=== PATIENT | female | born 1945 | race Caucasian/White ===

== ENCOUNTER → 2017-12-18 14:50 | Outpatient (CLI) | payer MEDICARE, SELFPAY | PROVIDERS: Family Provider Family Medicine Geriatric Medicine; PCP Family Medicine Geriatric Medicine; Visit Provider Family Medicine Geriatric Medicine | DX: E83.52 Hypercalcemia (principal) | CPT/HCPCS: 36415; 82330 ==

== ENCOUNTER → 2018-01-22 08:44 | Outpatient (CLI) | payer MEDICARE, SELFPAY ==
[2018-01-22 10:16] LABS: AST(SGOT) 16 U/L (15-37); Alanine Aminotransfer ALT/SGPT 28 U/L (13-56); Albumin, Serum 3.7 g/dL (3.2-5.0); Alkaline Phosphatase 75 U/L (45-117); Bilirubin, Direct 0.07 mg/dL (0.00-0.30); CPK Total, Creatine Kinase 83 U/L (26-192); Cholesterol 183 mg/dL (200); Globulin 3.4 g/dL (2.2-4.2); High Density Lipoprotein 54 mg/dL; Protein, Total 7.1 g/dL (6.4-8.2); Triglycerides 136 mg/dL; Very Low Density Lipoprotein 27 mg/dL (5-40)
== END ==
PROVIDERS: Family Provider Family Medicine Geriatric Medicine; PCP Family Medicine Geriatric Medicine
DX: E78.5 Hyperlipidemia, unspecified (principal)
CPT/HCPCS: 36415; 80061; 80076; 82550

== ENCOUNTER → 2019-04-24 08:56 | Outpatient (CLI) | payer MEDICARE, SELFPAY ==
--- NOTE | 2019-04-24 09:58 | CR.HP_ITS ---
CR - History & Physical - General Arrival date:: 04/24/19 Arrival time:: 09:00 Date of Referral:: 03/24/19 Date of CR Evaluation:: 04/24/19 Referring Physician: DR. MARYLOU SHARMA - [facility] Primary Diagnosis: PCI W/STENT - History of Present Cardiac Event Onset Date: Enter Onset Date of cardiac illnesses in Comment field below Acute Myocardial Infarction within 12 months:: Yes - Mar PTCA or coronary stenting:: Yes - 02/26/2019, PREVIOUS STENT IN 2011, 1995, 1996 ANGIOPLASTY IN 1993 Type of Symptoms:: MEMORY LOSS, [place] [employer] NIGHT BEFORE, HAD A FULL NEUROLOGY WORK UP, FOLLOWING WEEK HAD STRESS TEST AND ECHOCARDIOGRAM. ABOUT 2 WEEKS LATER STARTED HAVING CHEST PAINS. Interventions with present event:: STRESS TEST, ECHOCARDIOGRAM, BASIC WORK UP. Were there any complications?: NONE - Medications Home Medications: Ambulatory Orders Medication Instructions Recorded ALPRAZolam [Xanax] 1 mg PO QHS 04/02/16 Losartan Potassium 100 mg PO QHS 04/02/16 Apixaban [Eliquis] 5 mg PO BID 04/24/19 Cholecalciferol (Vitamin D3) 1,000 04/24/19 [Vitamin D3] Clopidogrel Bisulfate [Plavix] 75 mg PO DAILY 04/24/19 Dofetilide [Tikosyn] 500 mcg PO BID 04/24/19 Ezetimibe [Zetia] 10 mg PO DAILY 04/24/19 Isosorbide Mononitrate [Imdur] 30 mg PO DAILY 04/24/19 Nitroglycerin [Nitrostat] 0.4 mg SL Q5M 04/24/19 Pantoprazole Sodium [Protonix] 40 mg PO DAILY 04/24/19 Polyethylene Glycol 3350 [Miralax] 17 gm PO DAILY 04/24/19 Rosuvastatin Calcium [Crestor] 40 mg PO DAILY 04/24/19 Trazodone HCl 50 mg PO 04/24/19 - Allergies Allergies/Adverse Reactions: Allergies metoprolol Allergy (Verified 02/25/17 22:38) Other TAPE Adverse Reaction (Uncoded 02/25/17 22:38) Hives - Sleep Disorder Evaluation Hx of Sleep Apnea: No Do you snore loudly (louder than talking or can be heard through closed doors)?: Yes Do you often feel tired/ fatigued/ sleepy during daytime?: No Has anyone observed you stop breathing during sleep?: No History of Hypertension (for STOP score): Yes - dont sleep well, had a sleep test and was negative for sleep disorder STOP Results: Positive Advanced Directives - Advanced Directives Power of Database Operator: Yes Living Will: Yes Advance Directives Information Provided: No Advance Directives on File: No - patient will bring copies DNR Order?:: No - MOLST See MOLST form: No Past Medical History - Past Medical Illness Medical History: Past Medical History (Last Updated 04/24/19 @ 10:20 by Inocente Moore, HARPER, PROJECT GEOLOGIST, BS) Anxiety F41.9 Atrial fibrillation I48.91 Bradycardia R00.1 CAD (coronary artery disease) I25.10 Depression F32.9 Hyperlipidemia E78.5 Myocardial infarction I21.9 Palpitations R00.2 Typical atrial flutter I48.3 colonoscopy mandible fracture surgery Hypertension I10 - Past Surgical History Surgical History: Past Surgical History (Last Updated 04/24/19 @ 10:20 by Inocente Moore, HARPER, PROJECT GEOLOGIST, BS) H/O adenoidectomy Z90.89 H/O hernia repair Z98.890, Z87.19 History of PTCA Z98.61 History of ankle surgery Z98.890 Hx of tonsillectomy Z90.89 S/P PTCA (percutaneous transluminal coronary angioplasty) Z98.61 S/P ablation of atrial fibrillation Z98.890, Z86.79 Social History - Smoking History Smoking Status: Former smoker Years Smokin Packs Smoked per Day: 1 Hx Smoking Cessation Date: 1968 Hx Tobacco Use: No Hx Smoking Exposure: No - Alcohol Use Alcohol Usage: Yes - occasionally; once month if that. 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 - Hobbies, Recreation, Social Activities Hobbies: Reading, Other - art, gardening Recreational Activities: I am able to engage in most, but not all activities - has really slowed down; desire, ability to perform and stamina have all contributed. Social Environment - Status Marital Status: - Current Living Arrangements Living Environment:: Spouse - Children How many children do you have?: 1 - 1 Do any of your children live nearby?: Yes - Just recently moved to [place] - Safety Do you feel safe in your surroundings?: Yes - Assistance Do you need any assistance at home?: none Review of Systems - Review of Systems Hints: Right click = Denies ([place]). Left click = Reports ([place]) Review of Present Symptoms: Reports: Shortness of Breath with Exertion - feels s ometimes can't get quite enough air., Angina - has had to use nitroglycerine only one time since recent stent. Feels it more int he evening seems after the Imdur has started to wear off a bit., Fatigue, Heart Arrhythmia/Irregularities - atrial fibrillation/flutter had atrial ablation procedures., Appetite - Normal, Sleep - Normal. Denies: Shortness of Breath at Rest, Dizziness/Lightheadedness, Appetite - Special Diet, Sexual Changes - Pain Is Patient Pain Free?: Yes Pain Location: none Pain Level: 0/10 Risk Factor Assessment - Chief Complaint Chief Complaint: Patient is a very pleasent female of [place] who was referred to [facility] for her CR due to location. SHe has previously had prior cardica procedures adn has participated in our CR program in the past. - Vital Signs Temperature: 98.7 F Respiratory Rate: 12 Pulse Ox: 96 Blood Pressure: 120/74 Nailbeds:: pink - Pulse Pulse Rate: 56 Pulse Rhythm: Regular - Hypertension How long have you been treated?: since Blood Pressure Sitting - Left Arm: 120/74 - Stress Stress: Recent, Home/Family - Blood Cholesterol/Lipids Total Cholesterol (mg/dL) Goal = less than 200 mg/dL: 184 - 02/17/2019 HDL Cholesterol (mg/dL) Goal = less than 40 mg/dL: 49 LDL Cholesterol (mg/dL) Goal = less than 70 mg/dL: 102 Triglycerides (mg/dL) Goal = less than 150 mg/dL: 142 - Diabetes Nutrition Referral for Diabetes: No - Obesity Height: 5 ft 6 in Weight:: 153 lb Weight in Pounds: 153.0 lbs Weight Source: Standing Scale Body Mass Index (BMI): 24.7 Nutritional Referral for Obesity: No - Physical Inactivity Physical Inactivity: Recreational activity - set daily goal of 5000 steps per day; spend alot of time working outside. - Risk Stratification Risk Guidelines: Lowest Risk: Risk Factor for Smoking, Risk Factor for Diabetes, Risk Factor for Obesity, Risk Factor for Hypertension, Risk Factor for Sedentary Lifestyle, Risk Factor for Depression, Moderate Risk: Risk Factor for Dyslipidemia - For Smoking Smoking Risk Guidelines: Smoking Low Risk: None or quit greater than 6 months ago. Smoking Moderate Risk: Smoker or quit 6 months or less ago. Smoking High Risk: Smoker - For Dyslipidemia Dyslipidemia Risk Guidelines: Low Risk: Moderate Risk: High Risk: 15-25% fat 25.1-29% fat >/= 30% fat. <7% sat fat 7-9% sat fat >9% sat fat. <150 mg chol 150-299 mg chol >/= 300 mg chol. LDL <100 LDL 100-129 LDL >/= 130. Chol/HDL ratio <5.0 Chol/HDL ratio 5.0-6.0 Chol/HDL ratio >6.0. Triglycerides <100 Triglycerides 100- 149 Triglycerides >/= 150 - For Diabetes Mellitus Diabetes Risk Guidelines: Diabetes Low Risk: HgA1c <6.5% and/or FBG <120. Diabetes Moderate Risk: HgA1c 6.6-7.9% and/or FBG 120-180. Diabetes High Risk: HgA1c >/= 8% and/or FBG >180 - For Obesity/Overweight Obesity/Overweight Risk Guidelines: Obesity Low Risk: BMI <25.0. Obesity Moderate Risk: BMI 25-29.9. Obesity High Risk: BMI >/= 30.0 - For Hypertension Hypertension Risk Guidelines: Hypertension Low Risk: Systolic <120 and Diastolic <80. Hypertension Moderate Risk: Systolic 120-139 and Diastolic 80-89. Hypertension High Risk: Systolic >/= 140 and Diastolic >/= 90 - For Sedentary Lifestyle Sedentary Lifestyle Risk Guidelines: Sedentary Lifestyle Low Risk: >/= 1,500 kcal/week. Sedentary Lifestyle Moderate Risk: 700-1,499 kcal/week. Sedentary Lifestyle High Risk: < 700 kcal/week - For Depression Depression Risk Guidelines: Depression Low Risk: Not clinically depressed. Depression Moderate Risk: Mildly depressed. Depression High Risk: Clinically depressed Motivation - Motivation to Participate On a scale of 1 to 10, how prepared are you to commit to attending program?: 10 What do you see as barriers to successfully being able to complete the program?: none; maybe Sunday schedule with art class and our CR schedule What do you see as the benefits of succesfully completing the program? In other words, what do you hope to get out of participating in the program?: more energy increased stamina Are there issues you are dealing with that will interfere with completing the program?: none Do you have a spouse or signficant other, family or friends who will help support you to complete the program?: yes.
[2019-04-24 10:32] VITALS: BP 120/74; PULSE 56; RESP 12; TEMP 37.1; O2SAT 96; BMI 24.7
--- NOTE | 2019-04-24 10:56 | PCM.CR.ITP ---
General Information - General Information Admitting Diagnosis: PCI W/CORONARY STENT - Education/Goals Barriers to Learning: Vision Impairment Individual Counseling: Initial Assessment: Abnormal Cholesterol Levels, High Blood Pressure Cardiac Rehabilitation Goals: 1. Maintain the individual as the primary focus of care. 2. To improve the patient's quality of life. 3. Identification of cardiac risk factors and provide cardiac risk factor management. 4. Enhance the psychosocial status of the patient. 5. Reconditioning enough to allow the patient to resume customary activities. 6. Control symptoms of cardiac disease Scale for measuring improvement of personal goals: Enter appropriate number in Comments. 2 = Unchanged. 3 = Slightly Better. 4 = Moderate Improvement. 5 = Met my Goal Personal Goals: Initial Assessment: Improve management of stress and emotions, Improve energy level, Participate in home exercise program, Get back to work, or to resume activities faster, Improve muscle strength and endurance, Control risk factors (learn risk factor modification) Exercise - Initial Assessment - Visit Date of Eval: 04/24/19 - START 04/28/2019 - Stages of Change Stages of Change:: Action - Physician Prescribed Exercise Modalities: Treadmill, Airdyne, NuStep Frequency (days/week): 3x/week for 12 weeks [36 sessions] Duration (Minutes):: 30-45 Intensity: 60-80% age predicted maximum heart rate reserve METs - Progression: 0.5-1.0 MET, RPE 11-14 WEEK: 2.5 Target Heart Rate:: 96-124 - Hypertension Do any of the following apply?: Yes, Medication Resting Blood Pressure:: 120/74 - Intervention Home Exercise/Activity Goal:: Moderate Exercise 30 min/day x 5 days/wk - Education Goals:: Warm-up, RPE TITUS Scale, S/S, Safe Exercise, Self-Monitoring - Exercise Program Goals Exercise Program Goals: Aerobic Activity >30 min Nutrition - Initial Assessment - Program Goals Nutrition Program Goals: LDL <70. Total Cholesterol <200. HDL >45. Triglycerides <150. HgbA1C <7%. BMI <25 - Visit Date of Assessment:: 04/24/19 - Stages of Change Stages of Change:: Action - Lipids Total Cholesterol (mg/dL) Goal = less than 200 mg/dL: 184 - 02/17/2019 HDL Cholesterol (mg/dL) Goal = less than 45 mg/dL: 49 LDL Cholesterol (mg/dL) Goal = less than 70 mg/dL: 102 Triglycerides (mg/dL) Goal = less than 150 mg/dL: 142 - Diabetes Diabetes:: No - Weight Management Height: 5 ft 3 in Weight:: 153 lb Body Fat %:: 24.69 - Intervention Referral to dietitian:: No Referral to Diabetic Clinic:: No Will attend diet classes:: No - Education Gave educational materials for:: Healthy eating Tobacco - Initial Assessment - Program Goals Tobacco Program Goals: Complete smoking cessation. Attend education classes. Improve Knowledge Test score - Stage of Change Stages of Change:: Action - Learning Barriers Learning Barriers: Vision, Ready to Learn - Family Support Do you have family support?: Yes - Tobacco Use Tobacco Use: Non-smoker - Intervention Smoking Cessation Referral:: No Individual Education/Counseling:: No Education Schedule Given:: Yes - Education Attended class for:: Treating Heart Disease, How The Heart Works, What it means to have Heart Disease, How Coronary Artery Disease is Diagnosed, Heart Procedures, What Heart Medications Do, Risk Factors & Modifications, Living an Active Life, Nutrition, Emotions & Heart Disease, Stress Management & Relaxation, Sleep Disorders & Heart Disease Psychosocial - Initial Assess - Target Goals Target Goals: Assess presence or absence of depression. Using a valid screening tool, maximizes coping skills. Positive support system - Stages of Change Stages of Change:: Action - Psychosocial Test Tool Used:: HANDS Depression Questionnaire Self-reported stress:: This time year anniversary child, and other daughtermoved to [place]. Tests Completed: SF - 36 survey completed, Mood Scale Test - Intervention PS - Interventions: Yes Attend Stress Management Classes, Yes Uses Stress Management Skills, No Referral to Mental Health, No Referral to [facility] Case Management, No Referral to Physician - Treated for depression/anxiety - Education Gave educational materials for:: Coping techniques, Signs & symptoms of depression, Stress management, Relaxation techniques - Patient/Program Goal Preventative Medication(s):: Aspirin, JENNIFER inhibitor, Clopidogrel, Beta rafael, Statin/lipid - Assistive Devices Assistive Devices:: None Fall Risk Assessed:: Yes Patient Health Questionnaire Initial Assessment 1. Little interest or pleasure in doing things: Several days 2. Feeling down, depressed, or hopeless: More than half the days 3. Trouble falling or staying asleep, or sleeping too much: Several days 4. Feeling tired or having little energy: Nearly every day 5. Poor appetite or overeating: Not at all 6. Feeling bad about yourself -- or that you are a failure or have let yourself or your family down: Several days 7. Trouble concentrating on things, such as reading the newspaper or watching television: Not at all 8. Moving or speaking so slowly that other people could have noticed. Or the opposite - being so fidgety or restless that you have been moving around a lot more than usual: Several days 9. Thoughts that you would be better off , or of hurting yourself in some way: Not at all How difficult have these problems made it for you to do your work, take care of things at home, or get along with other people?: Very difficult Total Score: 9 GIOVANNI-Q SV Test - Statements CAD is a disease of the arteries in the heart: False Examples of risk factors for heart disease: True Angina is chest pain or discomfort: True The benefits of resistance training include: True Eating more meat and dairy products: False Anti-platelet medications such as aspirin are important: True The only effective way to manage stress: False An exercise warm-up slowly increases heart rate: True Prepared, processed foods usually have high sodium: True Depression is common after a heart attack: True The statin medications lower cholesterol: True To control blood pressure, lower the amount of sodium: True If someone gets chest discomfort during walking: False Transfats are partially hydrogenated vegetable oils: True Sleep apnea that is not treated increases the risk: False To control cholesterol, one should become a vegetarian: False Someone knows if he/she is exercising at the right level: True Diabetes cannot be prevented with exercise & health eating: False Stress is a large risk for heart attack: True A diet that can help lower blood pressure is rich in: True - Total Score Total Correct Responses: 20 Self-Efficacy Initial Assessment We would like to know how confident you are in doing certain activities. Please select your confidence level for:: Select your confidence level for the following using the scale 1-10 where 1 is not at all confident and 10 is totally confident. Your score is the average of all 6 responses. Fatigue: How confident are you that you can keep the fatigue caused by your disease from interfering with the things you want to do? Select Number: 3 Physical Discomfort or Pain: How confident are you that you can keep the physical discomfort or pain of your disease from interfering with the things you want to do? Select Number: 7 Emotional Distress: How confident are you that you can keep the emotional distress caused by your disease from interfering with the things you want to do? Select Number: 2 Other Symptoms or Health Problems: How confident are you that you can keep other symptoms or health problems from interfering with the things you want to do? Select Number: 9 Different Tasks and Activities: How confident are you that you can do the different tasks and activities needed to manage your health condition so as to reduce your need to see a doctor? Select Number: 9 Medication: How confident are you that you can do things other than just taking medication to reduce how much your illness affects your everyday life? Select Number: 10 Total Score:: 6 Nutrition Survey - Nutrition Survey Instructions Scoring Instructions: Scoring is as follows: Yes = 1 points. No = 0 point. Patient score that is >/=12 is considered to be at potential nutritional risk and could benefit from a referral to a registered dietitian. - Nutrition Survey Initial Have you lost >10 lbs over the past 2 months without trying?: No Are you following a special diet at home for diabetes, low fat, or low salt?: Yes Are you interested in meeting with a dietitian for help understanding your diet?: No Do you eat less than 3 meals a day?: No Do you eat fatty meats (kovacs, sausage, ribs, etc), fried foods, desserts, large amounts of salad dressings, margarine, butter, or cheese most days?: No Do you have food allergies? [Enter types in comment field]: No Do you eat in restaurants more than 3 times a week?: No Do you season food with salt, seasoning salt, or garlic salt?: No
[2019-04-24 11:03] VITALS: BP 120/74
== END ==
PROVIDERS: Family Provider Family Medicine Geriatric Medicine; PCP Family Medicine Geriatric Medicine
DX: Z95.5 Presence of coronary angioplasty implant and graft (principal); I10 Essential (primary) hypertension; I25.10 Atherosclerotic heart disease of native coronary artery without angina pectoris

== ENCOUNTER 2019-05-12 09:15 | Outpatient (RCR) | payer MEDICARE, SELFPAY ==
[2019-04-24 10:32] VITALS: BMI 24.7
== END 2019-05-12 23:59 ==
LOC: CR 09:15
PROVIDERS: Family Provider Family Medicine Geriatric Medicine; PCP Family Medicine Geriatric Medicine
DX: Z95.5 Presence of coronary angioplasty implant and graft (principal)
CPT/HCPCS: 93798

== ENCOUNTER → 2019-05-21 07:59 | Outpatient (CLI) | payer MEDICARE, SELFPAY ==
[2019-04-24 10:32] VITALS: BMI 24.7
[2019-05-21 08:47] LABS: AST(SGOT) 22 U/L (15-37); Alanine Aminotransfer ALT/SGPT 33 U/L (13-56); Albumin, Serum 3.7 g/dL (3.2-5.0); Alkaline Phosphatase 76 U/L (45-117); Bilirubin, Direct 0.11 mg/dL (0.00-0.30); Cholesterol 148 mg/dL (200); Globulin 3.3 g/dL (2.2-4.2); High Density Lipoprotein 59 mg/dL; Triglycerides 116 mg/dL; Very Low Density Lipoprotein 23 mg/dL (5-40)
== END ==
PROVIDERS: Family Provider Family Medicine Geriatric Medicine; PCP Family Medicine Geriatric Medicine
DX: I25.119 Atherosclerotic heart disease of native coronary artery with unspecified angina pectoris (principal)
CPT/HCPCS: 36415; 80061; 80076

== ENCOUNTER 2019-06-11 09:15 | Outpatient (RCR) | payer MEDICARE, SELFPAY ==
[2019-04-24 10:32] VITALS: BMI 24.7
--- NOTE | 2019-05-26 09:11 | PCM.CR.ITP ---
Exercise - 30-day Assessment - Visit Date of Eval: 05/26/19 Session #:: 7 - STARTED HER CR ON 05/09/2019 FOLLOWING AN ADDITIONAL PCI STENT FOLLOWING HER INITIAL EVALUATION. - Stages of Change Stages of Change:: Action - Physician Prescribed Exercise Modalities: Treadmill, Airdyne, NuStep Frequency (days/week): 3 Duration (Minutes):: 30-45 Intensity: 60-80% age predicted maximum heart rate reserve METs - Progression: 0.5-1.0 MET, RPE 11-14 WEEK: 3.0 Target Heart Rate:: 96-124 W MAX HR 90 RPE 12 - Hypertension Resting Blood Pressure:: 108/64 Peak Exercise Blood Pressure:: 142/82 Medication Changes:: Yes - Intervention Home Exercise/Activity Goal:: Moderate Exercise 30 min/day x 5 days/wk - Education Goals:: Warm-up, RPE TITUS Scale, S/S, Safe Exercise, Self-Monitoring - Exercise Program Goals Exercise Program Goals: Aerobic Activity >30 min Nutrition - 30-Day Assessment - Program Goals Nutrition Program Goals: LDL <70. Total Cholesterol <200. HDL >45. Triglycerides <150. HgbA1C <7%. BMI <25 - Visit Date of Eval: 05/26/19 - Stages of Change Stages of Change:: Action - Lipids Has the patient seen the dietitian?: Yes - Diabetes Diabetes:: No Insulin: No Non-Insulin Dependent?: No - Weight Management Weight:: 155 lb - Intervention Referral to dietitian:: No Referral to Diabetic Clinic:: No Will attend diet classes:: Yes - Education Attended class for:: Healthy eating Tobacco - Initial Assessment - Program Goals Tobacco Program Goals: Complete smoking cessation. Attend education classes. Improve Knowledge Test score - Learning Barriers Learning Barriers: Vision, Ready to Learn Tobacco - 30-Day Assessment - Program Goals Tobacco Program Goals: Complete smoking cessation. Attend education classes. Improve Knowledge Test score - Stage of Change Stages of Change:: Action - Learning Barriers Learning Barriers: Participates in education, Change in behavior - Family Support Do you have family support?: Yes - Tobacco Use Tobacco Use: Non-smoker Do you use smokeless tobacco?: No - Intervention Smoking Cessation Referral:: No Individual Education/Counseling:: No Education Schedule Given:: Yes - Education Attended class for:: Living an Active Life, Nutrition Psychosocial - Initial Assess - Target Goals Target Goals: Assess presence or absence of depression. Using a valid screening tool, maximizes coping skills. Positive support system - Psychosocial Test Tool Used:: HANDS Depression Questionnaire - Assistive Devices Fall Risk Assessed:: Yes Psychosocial - 30-Day Assess - Target Goals Target Goals: Assess presence or absence of depression. Using a valid screening tool, maximizes coping skills. Positive support system - Stages of Change Stages of Change:: Action - Psychosocial Test Tool Used:: HANDS Depression Questionnaire - Intervention PS - Interventions: Yes Attend Stress Management Classes, Yes Uses Stress Management Skills - MEDITATION, No Referral to Mental Health, No Referral to [facility] Case Management, No Referral to Physician - Education Attended classes for:: Coping techniques, Signs & symptoms of depression, Stress management, Relaxation techniques - Patient/Program Goal Preventative Medication(s):: Aspirin, JENNIFER inhibitor, Clopidogrel, Beta rafael, Statin/lipid - Assistive Devices Assistive Devices:: None Fall Risk Assessed:: Yes Patient Health Questionnaire 30-Day Re-eval Assessment 1. Little interest or pleasure in doing things: Not at all 2. Feeling down, depressed, or hopeless: Several days 3. Trouble falling or staying asleep, or sleeping too much: Not at all 4. Feeling tired or having little energy: More than half the days 5. Poor appetite or overeating: Not at all 6. Feeling bad about yourself -- or that you are a failure or have let yourself or your family down: Not at all 7. Trouble concentrating on things, such as reading the newspaper or watching television: Not at all 8. Moving or speaking so slowly that other people could have noticed. Or the opposite - being so fidgety or restless that you have been moving around a lot more than usual: Several days 9. Thoughts that you would be better off , or of hurting yourself in some way: Not at all How difficult have these problems made it for you to do your work, take care of things at home, or get along with other people?: Somewhat difficult Total Score: 4 Self-Efficacy 30-Day Re-eval Assessment We would like to know how confident you are in doing certain activities. Please select your confidence level for:: Select your confidence level for the following using the scale 1-10 where 1 is not at all confident and 10 is totally confident. Your score is the average of all 6 responses. Fatigue: How confident are you that you can keep the fatigue caused by your disease from interfering with the things you want to do? Select Number: 5 Physical Discomfort or Pain: How confident are you that you can keep the physical discomfort or pain of your disease from interfering with the things you want to do? Select Number: 8 Emotional Distress: How confident are you that you can keep the emotional distress caused by your disease from interfering with the things you want to do? Select Number: 4 Other Symptoms or Health Problems: How confident are you that you can keep other symptoms or health problems from interfering with the things you want to do? Select Number: 10 Different Tasks and Activities: How confident are you that you can do the different tasks and activities needed to manage your health condition so as to reduce your need to see a doctor? Select Number: 10 Medication: How confident are you that you can do things other than just taking medication to reduce how much your illness affects your everyday life? Select Number: 10 Total Score:: 7
[2019-05-26 09:19] VITALS: BP 108/64; BP 142/82
== END 2019-06-12 23:59 ==
LOC: CR 09:15
PROVIDERS: Family Provider Family Medicine Geriatric Medicine; PCP Family Medicine Geriatric Medicine
DX: Z95.5 Presence of coronary angioplasty implant and graft (principal)
CPT/HCPCS: 93798

== ENCOUNTER 2019-07-09 09:15 | Outpatient (RCR) | payer MEDICARE, SELFPAY ==
[2019-04-24 10:32] VITALS: BMI 24.7
[2019-06-13 01:11] VITALS: BP 108/64; BP 142/82
--- NOTE | 2019-06-23 12:51 | CR.ITP_ITS ---
Exercise - 60-Day Assessment - Visit Date of Eval: 06/23/19 Session #:: 16 - Patient has missed 3 sessions - Stages of Change Stages of Change:: Action - Physician Prescribed Exercise Modalities: Treadmill, Airdyne, NuStep Frequency (days/week): 3 Duration (Minutes):: 30-45 Intensity: 60-80% age predicted maximum heart rate reserve METs - Progression: 0.5-1.0 MET, RPE 11-14 WEEK: 3.0 unable to increase due to hip and lower back pain. Target Heart Rate:: 96-124 w/max HR 109 - Hypertension Resting Blood Pressure:: 118/68 Peak Exercise Blood Pressure:: 160/82 Medication Changes:: No - Intervention Home Exercise/Activity Goal:: Moderate Exercise 30 min/day x 5 days/wk - Education Goals:: Warm-up, RPE TITUS Scale, S/S, Safe Exercise, Self-Monitoring - Exercise Program Goals Exercise Program Goals: Aerobic Activity >30 min Nutrition - 60-Day Assessment - Program Goals Nutrition Program Goals: LDL <70. Total Cholesterol <200. HDL >45. Triglycerides <150. HgbA1C <7%. BMI <25 - Visit Date of Eval: 06/23/19 - Stages of Change Stages of Change:: Action - Lipids Has the patient seen the dietitian?: Yes - Diabetes Diabetes:: No Insulin: No Non-Insulin Dependent?: No - Weight Management Weight:: 155 lb - Intervention Referral to dietitian:: No Referral to Diabetic Clinic:: No Will attend diet classes:: Yes - Education Attended class for:: Healthy eating Tobacco - Initial Assessment - Program Goals Tobacco Program Goals: Complete smoking cessation. Attend education classes. Improve Knowledge Test score - Learning Barriers Learning Barriers: Vision, Ready to Learn Tobacco - 60-Day Assessment - Program Goals Tobacco Program Goals: Complete smoking cessation. Attend education classes. Improve Knowledge Test score - Stage of Change Stages of Change:: Action - Learning Barriers Learning Barriers: Participates in education - Tobacco Use Tobacco Use: Non-smoker Do you use smokeless tobacco?: No - Intervention Smoking Cessation Referral:: No Individual Education/Counseling:: No Education Schedule Given:: Yes - Education Attended class for:: Treating Heart Disease, How The Heart Works, Nutrition, Emotions & Heart Disease, Stress Management & Relaxation, Sleep Disorders & Heart Disease Psychosocial - Initial Assess - Target Goals Target Goals: Assess presence or absence of depression. Using a valid screening tool, maximizes coping skills. Positive support system - Psychosocial Test Tool Used:: HANDS Depression Questionnaire - Assistive Devices Fall Risk Assessed:: Yes Psychosocial - 60-Day Assess - Target Goals Target Goals: Assess presence or absence of depression. Using a valid screening tool, maximizes coping skills. Positive support system - Stages of Change Stages of Change:: Action - Psychosocial Test Tool Used:: HANDS Depression Questionnaire - Intervention PS - Interventions: Yes Attend Stress Management Classes, Yes Uses Stress Gena gement Skills, No Referral to Mental Health, No Referral to [facility] Case Management, No Referral to Physician - Education Attended classes for:: Coping techniques, Signs & symptoms of depression, Stress management, Relaxation techniques - Patient/Program Goal Preventative Medication(s):: Aspirin, JENNIFER inhibitor, Clopidogrel, Beta rafael, Statin/lipid - Patient is compliant with her medications - Assistive Devices Assistive Devices:: None Fall Risk Assessed:: Yes Patient Health Questionnaire 60-Day Re-eval Assessment 1. Little interest or pleasure in doing things: Not at all 2. Feeling down, depressed, or hopeless: Several days 3. Trouble falling or staying asleep, or sleeping too much: Not at all 4. Feeling tired or having little energy: Several days 5. Poor appetite or overeating: Not at all 6. Feeling bad about yourself -- or that you are a failure or have let yourself or your family down: Not at all 7. Trouble concentrating on things, such as reading the newspaper or watching television: Not at all 8. Moving or speaking so slowly that other people could have noticed. Or the opposite - being so fidgety or restless that you have been moving around a lot more than usual: Several days 9. Thoughts that you would be better off , or of hurting yourself in some way: Not at all How difficult have these problems made it for you to do your work, take care of things at home, or get along with other people?: Not difficult at all Total Score: 3 Self-Efficacy 60-Day Re-eval Assessment We would like to know how confident you are in doing certain activities. Please select your confidence level for:: Select your confidence level for the following using the scale 1-10 where 1 is not at all confident and 10 is totally confident. Your score is the average of all 6 responses. Fatigue: How confident are you that you can keep the fatigue caused by your dise ase from interfering with the things you want to do? Select Number: 7 Physical Discomfort or Pain: How confident are you that you can keep the physica l discomfort or pain of your disease from interfering with the things you want to do? Select Number: 8 Emotional Distress: How confident are you that you can keep the emotional distress caused by your disease from interfering with the things you want to do? Select Number: 6 Other Symptoms or Health Problems: How confident are you that you can keep other symptoms or health problems from interfering with the things you want to do? Select Number: 10 Different Tasks and Activities: How confident are you that you can do the different tasks and activities needed to manage your health condition so as to reduce your need to see a doctor? Select Number: 10 Medication: How confident are you that you can do things other than just taking medication to reduce how much your illness affects your everyday life? Select Number: 10 Total Score:: 8
[2019-06-23 13:09] VITALS: BP 118/68; BP 160/82
== END 2019-07-12 23:59 ==
LOC: CR 09:15
PROVIDERS: Family Provider Family Medicine Geriatric Medicine; PCP Family Medicine Geriatric Medicine
DX: Z95.5 Presence of coronary angioplasty implant and graft (principal)
CPT/HCPCS: 93798

== ENCOUNTER 2019-07-21 09:15 | Outpatient (RCR) | payer MEDICARE, SELFPAY ==
[2019-04-24 10:32] VITALS: BMI 24.7
[2019-07-13 00:53] VITALS: BP 118/68; BP 160/82
--- NOTE | 2019-07-23 14:36 | PCM.CR.ITP ---
General Information - General Information Admitting Diagnosis: PCI with Coronary stent - Education/Goals Cardiac Rehabilitation Goals: 1. Maintain the individual as the primary focus of care. 2. To improve the patient's quality of life. 3. Identification of cardiac risk factors and provide cardiac risk factor management. 4. Enhance the psychosocial status of the patient. 5. Reconditioning enough to allow the patient to resume customary activities. 6. Control symptoms of cardiac disease Scale for measuring improvement of personal goals: Enter appropriate number in Comments. 2 = Unchanged. 3 = Slightly Better. 4 = Moderate Improvement. 5 = Met my Goal Exercise - 90-Day Assessment - Visit Date of Eval: 07/23/19 Session #:: 22 - Stages of Change Stages of Change:: Action - Physician Prescribed Exercise Modalities: Treadmill, Airdyne, NuStep Frequency (days/week): 3 Duration (Minutes):: 30-45 Intensity: 60-80% age predicted maximum heart rate reserve METs - Progression: 0.5-1.0 MET, RPE 11-14 WEEK: 3 Target Heart Rate:: 96-124 - Hypertension Resting Blood Pressure:: 124/60 Peak Exercise Blood Pressure:: 148/78 - Intervention Home Exercise/Activity Goal:: Sitting Time <3 hrs/day - Education Goals:: RPE TITUS Scale, S/S, Self-Monitoring - Exercise Program Goals Exercise Program Goals: Aerobic Activity >30 min, B/P <130/80 Nutrition - 90-Day Assessment - Program Goals Nutrition Program Goals: LDL <70. Total Cholesterol <200. HDL >45. Triglycerides <150. HgbA1C <7%. BMI <25 - Visit Date of Eval: 07/23/19 - Stages of Change Stages of Change:: Action - Education Attended class for:: Signs & symptoms of hypoglycemia, Signs & symptoms of hyperglycemia, Relate diabetes to coronary artery disease, Healthy eating Tobacco - Initial Assessment - Program Goals Tobacco Program Goals: Complete smoking cessation. Attend education classes. Improve Knowledge Test score - Learning Barriers Learning Barriers: Vision, Ready to Learn Tobacco - 90-Day Assessment - Program Goals Tobacco Program Goals: Complete smoking cessation. Attend education classes. Improve Knowledge Test score - Stage of Change Stages of Change:: Action - Family Support Do you have family support?: Yes - Tobacco Use Tobacco Use: Non-smoker Do you use smokeless tobacco?: No - Intervention Smoking Cessation Referral:: No Individual Education/Counseling:: No Education Schedule Given:: Yes - Education Attended class for:: Treating Heart Disease, How The Heart Works, What it means to have Heart Disease, How Coronary Artery Disease is Diagnosed, Heart Procedures, What Heart Medications Do, Risk Factors & Modifications, Living an Active Life, Nutrition, Emotions & Heart Disease, Stress Management & Relaxation, Sleep Disorders & Heart Disease Psychosocial - Initial Assess - Target Goals Target Goals: Assess presence or absence of depression. Using a valid screening tool, maximizes coping skills. Positive support system - Psychosocial Test Tool Used:: HANDS Depression Questionnaire - Assistive Devices Fall Risk Assessed:: Yes Psychosocial - 90-Day Assess - Target Goals Target Goals: Assess presence or absence of depression. Using a valid screening tool, maximizes coping skills. Positive support system - Stages of Change Stages of Change:: Action - Psychosocial Test Tool Used:: HANDS Depression Questionnaire - Intervention PS - Interventions: Yes Attend Stress Management Classes, Yes Uses Stress Management Skills, No Referral to Mental Health, No Referral to [facility] Case Management, No Referral to Physician - Education Attended classes for:: Coping techniques, Signs & symptoms of depression, Stress management, Relaxation techniques - Assistive Devices Assistive Devices:: None Fall Risk Assessed:: Yes Patient Health Questionnaire 90-Day Re-eval Assessment 1. Little interest or pleasure in doing things: Not at all 2. Feeling down, depressed, or hopeless: Several days 3. Trouble falling or staying asleep, or sleeping too much: Not at all 4. Feeling tired or having little energy: Several days 5. Poor appetite or overeating: Not at all 6. Feeling bad about yourself -- or that you are a failure or have let yourself or your family down: Not at all 7. Trouble concentrating on things, such as reading the newspaper or watching television: Not at all 8. Moving or speaking so slowly that other people could have noticed. Or the opposite - being so fidgety or restless that you have been moving around a lot more than usual: Several days 9. Thoughts that you would be better off , or of hurting yourself in some way: Not at all How difficult have these problems made it for you to do your work, take care of things at home, or get along with other people?: Not difficult at all Total Score: 3 Self-Efficacy 90-Day Re-eval Assessment We would like to know how confident you are in doing certain activities. Please select your confidence level for:: Select your confidence level for the following using the scale 1-10 where 1 is not at all confident and 10 is totally confident. Your score is the average of all 6 responses. Fatigue: How confident are you that you can keep the fatigue caused by your disease from interfering with the things you want to do? Select Number: 7 Physical Discomfort or Pain: How confident are you that you can keep the physical discomfort or pain of your disease from interfering with the things you want to do? Select Number: 8 Emotional Distress: How confident are you that you can keep the emotional distress caused by your disease from interfering with the things you want to do? Select Number: 6 Other Symptoms or Health Problems: How confident are you that you can keep other symptoms or health problems from interfering with the things you want to do? Select Number: 10 Different Tasks and Activities: How confident are you that you can do the different tasks and activities needed to manage your health condition so as to reduce your need to see a doctor? Select Number: 10 Medication: How confident are you that you can do things other than just taking medication to reduce how much your illness affects your everyday life? Select Number: 10 Total Score:: 8
[2019-07-23 14:43] VITALS: BP 124/60; BP 148/78
== END 2019-07-25 10:00 | disposition home or self-care (01) ==
LOC: CR 09:15
PROVIDERS: Family Provider Family Medicine Geriatric Medicine; PCP Family Medicine Geriatric Medicine
DX: Z95.5 Presence of coronary angioplasty implant and graft (principal)
CPT/HCPCS: 93798

== ENCOUNTER → 2019-09-04 09:20 | Outpatient (CLI) | payer MEDICARE, SELFPAY ==
[2019-04-24 10:32] VITALS: BMI 24.7
--- NOTE | 2019-09-04 09:22 | RAD_ITS ---
STUDY: AIR-CONTRAST UPPER GI SERIES. REASON FOR EXAM: Female, 73 years old. GERD X YEARS, CP, CAD W/ STENTS INSERTION. 25 TOTAL FLUORO IMAGES. FLUOROSCOPY TIME (if supplied): ( 42 seconds ) minutes/seconds TECHNIQUE: The patient ingested barium. Multiple images of the esophagus, stomach and duodenum were obtained. COMPARISON: None. FINDINGS: The esophagus is unremarkable. There is no evidence of obstruction. No evidence of gastroesophageal reflux. The stomach and duodenum are unremarkable as well. No mass lesion is seen. No evidence of ulceration. IMPRESSION: Unremarkable air contrast upper GI series. Electronically Signed: Herbert Bautista, at 15:14 EST , Service support , PROCEDURE: SMALL BOWEL SERIES DATE OF EXAMINATION: September 04, 2019. INDICATION: Female, 73 years old. Abdominal pain. PHYSICIAN: Herbert Bautista M.D. FLUOROSCOPY TIME (if supplied): (0:56) minutes/seconds TECHNIQUE: Radiographic and fluoroscopic images were taken of the small intestine following the ingestion of barium. COMPARISON: None. FINDINGS: A preliminary supine KUB was obtained. There is an unremarkable bowel gas pattern. Fecal material is present throughout the colon. Phleboliths are present within the pelvis. The lung bases are unremarkable. The osseous structures are normal. The patient orally ingested approximately 12 ounces of thin barium Normal visualized fundus, body, and antrum of the stomach. Normal duodenal bulb, C-loop, and proximal jejunum. Normal visualized mucosal folds of the jejunum and ileum. There are no demonstrated dilatations, strictures, or masses of the small intestine. There is no mass displacement of the loops of small intestine. There is a normal motor pattern with barium reaching the colon within approximately 30 minutes. Spot films under fluoroscopic observation demonstrated a normal terminal ileum and ileocecal valve. RAD/Upper GI/w Small Bowel IMPRESSION: Normal small bowel series. Electronically Signed: Herbert Bautista, at 15:16 EST , Service support ,
== END ==
PROVIDERS: PCP Family Medicine Geriatric Medicine
DX: K21.9 Gastro-esophageal reflux disease without esophagitis (principal); K58.2 Mixed irritable bowel syndrome; R10.32 Left lower quadrant pain
CPT/HCPCS: 74246; 74248

== ENCOUNTER → 2019-09-06 10:31 | Outpatient (CLI) | payer MEDICARE, SELFPAY ==
[2019-04-24 10:32] VITALS: BMI 24.7
--- NOTE | 2019-09-06 10:37 | US_ITS ---
STUDY: ABDOMINAL ULTRASOUND REASON FOR EXAM: Female, 73 years old. Abdominal pain, gastroesophageal reflux disease. TECHNIQUE: Transabdominal ultrasound was performed with real-time and static perez scale imaging. TECHNICAL QUALITY: Adequate. COMPARISON: Upper gastrointestinal study. FINDINGS: Liver: The liver measures 13.8 cm. There is normal echogenicity of the liver. The bile ducts are within normal limits. There is hepatic color flow. The direction of portal flow is hepatopetal. There is no demonstrated mass lesion. Portal vein measurement: Gallbladder: Normal distended gallbladder. The gallbladder wall measures 2 mm. There is a negative sonographic Dyson''s sign. There is no pericholecystic fluid. There are no gallstones. 3 mm polyp. Common Bile Duct (C.B.D.): The common bile duct measures 4 mm. Pancreas: Normal size of the head, body and tail of the pancreas. There is normal echogenicity of the pancreas. There is no demonstrated pancreatic mass or cyst. Spleen: Normal size of the spleen. The spleen measures 9.4 cm. Right Kidney: Normal size of the right kidney. The right kidney measures 9.8 cm. Normal renal cortex. The right cortex measures 1.3 cm. There is no demonstrated renal mass or cyst. There is no right hydronephrosis. Left Kidney: Normal size of the left kidney. The left kidney measures 10.0 cm. Normal renal cortex. The left cortex measures 1.4 cm. There is no demonstrated renal mass or cyst. There is no left hydronephrosis. Aorta: Not dilated. Mild dilatation of the left proximal common iliac artery measuring 1.5 x 1.1 cm. I.V.C.: The IVC is patent. There is no ascites. US/Abdomen Complete IMPRESSION: No acute findings in the abdomen. Small gallbladder polyp which is likely benign. If patient has no risk factors for gallbladder malignancy then follow-up ultrasound at 1, 3 and 5 years. If risk factors for gallbladder malignancy follow-up ultrasound in 6 months and gastroenterology consult. 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 Electronically Signed: Luciano Quiles MD at 7:53 EST , Service support ,
== END ==
PROVIDERS: PCP Family Medicine Geriatric Medicine
DX: R10.11 Right upper quadrant pain (principal); K21.9 Gastro-esophageal reflux disease without esophagitis; K58.2 Mixed irritable bowel syndrome; K29.30 Chronic superficial gastritis without bleeding
CPT/HCPCS: 76700

== ENCOUNTER 2019-09-11 10:00 | Outpatient (RCR) | payer MEDICARE, SELFPAY ==
[2019-04-24 10:32] VITALS: BMI 24.7
--- NOTE | 2019-09-01 10:01 | HP.PTEVAL_ITS ---
Patient's Visit Information ASHOK MALIK is a 73 year old F referred to Physical Therapy by Wood Vu with a diagnosis of Low back pain without sciatica. Date of Evaluation: 08/29/19 Physical Therapist: Luis Jordan DPT - Visit Plan Frequency: 2x /Week Duration: 4-6 Weeks Plan: Start with gentle extension progression (not through pain), US to bilatearl lumbar paraspinals, body mechanics training, Teach prophalxis training and core/hip strengthening. - Subjective Findings: Pt. is here today for her initial evaluation with diagnosis of acute low back pain. Pt. reports having pain on and off for a few years, but this episode has been the worst. She has been in the middle of moving homes, which may have contributed to her pain. Pt. reports no radiating pain, but has pain that starts at her low back and does move to both sides, L worse than R. pt. denies N/T. N reports of muscle weakness or of her legs giving out on her. Pt. has not been taking any medications and has not had any imaging at this point in time. Pt. reports increased symptoms with walking for longer periods, static standing. Pt. has decreased symptoms with supine lying. Pt. does report increase pain in AMs, that loosens up with walking, then becomes worse by the end of the day. Pt. is hopeful to reduce symptoms in order to get back to all recreational activities without limitatons. - Pain Lumbar spine Pain Intensity (Out of 10): 4 Pain Intensity Range: 3, 8 - Objective POSTURE: Pt. has flexed posture, but not extreme. [place] kyphosis, but mostly from a slumped lumbar spine. Pt. has incraesed pain with correction of posture. PALPATION: Pt. has increased pain with palpation of bilateral lumbar erector spinea, and icnreased pain with spring testing to L3-S1, L5-S1 being the worst. NEURO: normal senstion, except reports slight reduction to light touch of R medial calf. Normal DTR bilaterally. ROM: Lumbar spine; flexion min loss increase NW (no change with over pressure or repeated motions), extension mod loss increase nW (decrease in symptoms and improved ROM with repeated motions), SB no effect either direction (no limitations), rotation (no loss no incraese in symptoms). Pt. has normal hip ROM without increase in symptoms, normal hip IR bilaterally. MMT: BLEs 4+/5 throughout, except 4/5 hip abd, abd hip extension. Core- poor+. GAIT: Pt. cordero slight fwrd flexion during gait and stance, increased pain with attempting to correct, no marked lateral shift noted. STAIRS: methodical pattern with BHR. - Goals Goal 1:: LTG: Pt. to be I with HEP. Goal Time Frame: 4-6 Weeks Goal 2:: STG: Pt. to sleep throughout the night without increase in symptoms. Goal Time Frame: 2-4 Weeks Goal 3:: LTG: Pt. to walk unlimited distances without increase in symptoms. Goal Time Frame: 4-6 Weeks Goal 4:: STG: Pt. to tolerate sitting for 1 hour without incerase in symptoms allowing for increaed ease with driving and daily living. Goal Time Frame: 2-4 Weeks Goal 5:: STG: Pt. to have increased lumbar spine ROM increased by 25% in all effected directions without increase in symptoms. Goal Time Frame: 2-4 Weeks Goal 6:: LTG: Pt. to have increased core strength by 1/2 grade of all effected musculature, in order to reduce stress applied to lumbar spine with all functional mobility. Goal Time Frame: 4-6 Weeks - Rehabilitation Potential Physical Therapy Diagnosis: Pt. has signs and symptoms without sciatica. Pt. does has marked weakness, painful to touch of lumbar erector spinea, and difficulty with lumbar ROM. Pt. did have positive slump test with marked increa se in L sided testing, with radicular syymptoms to buttock. Pt. has tender lumbar erector spinea, which I attribute this to methodical patterns of movement due to pain avoidance. Pt. would benefit from PT to decrease symptoms, increase ROM and progress back to normal daily activities. Rehabilitation Potential: Excellent - Anticipated Interventions Patient/Client Instruction: Educate patient on: Condition, Plan of Care, Risk Factors, Benefits of Fitness Program For the Purpose of:: To improve decision making, To facilitate caregiver knowledge, To improve self management, To prevent re-injury, To improve ability to perform tasks related to life management, To improve tolerance to ADL's Therapeutic Exercise to Include: Strength training, Power training, Endurance training, Body mechanics, Postural training, Flexibilty training, Gait and locomotor training, Passive ROM, Active ROM, Dynamic Lumbar Stabilization, Gaston Exercises For the Purpose of:: To decrease pain, To decrease swelling/inflammation, To increase ROM, To improve nutrient delivery to tissue, To improve muscle performance and motor function, To improve ability to perform ADL's, To improve gait and locomotor functions, To improve health of tissue, To decrease soft tissue restriction, To increase flexibility/ROM, To improve endurance, To improve balance Manual Therapy Techniques to Include: Mobilization, Passive ROM, Soft tissue mobilization For the Purpose of:: To decrease pain, To decrease swelling/inflammation, To increase ROM Ultrasound (thermal/non thermal): Yes For the Purpose of:: To decrease pain, To decrease swelling/inflammation, To increase ROM, To improve muscle performance and motor function Thank you for the opportunity to evaluate your patient. For Medicare and Medicare HMO plans, please review the plan of care and approve it. It will need to be FAXED BACK to us at [phone] for Medicare purposes. For Medicare only, by signing this I certify the plan of care. Please let me know if there are questions or concerns regarding this plan of care. Physician Signature: Date:
--- NOTE | 2020-02-10 12:58 | HP.PT.NRP ---
ASHOK MALIK was seen in my office for initial evaluation on 08/29/19. The following Plan of Care was established for this patient: Initial Frequency: 2x /Week Initial Duration: 4-6 Weeks Patient/Client Instruction: Educate patient on: Condition, Plan of Care, Risk Factors, Benefits of Fitness Program For the Purpose of:: To improve decision making, To facilitate caregiver knowledge, To improve self management, To prevent re-injury, To improve ability to perform tasks related to life management, To improve tolerance to ADL's Therapeutic Exercise to Include: Strength training, Power training, Endurance training, Body mechanics, Postural training, Flexibilty training, Gait and locomotor training, Passive ROM, Active ROM, Dynamic Lumbar Stabilization, Gaston Exercises For the Purpose of:: To decrease pain, To decrease swelling/inflammation, To increase ROM, To improve nutrient delivery to tissue, To improve muscle performance and motor function, To improve ability to perform ADL's, To improve gait and locomotor functions, To improve health of tissue, To decrease soft tissue restriction, To increase flexibility/ROM, To improve endurance, To improve balance Manual Therapy Techniques to Include: Mobilization, Passive ROM, Soft tissue mobilization For the Purpose of:: To decrease pain, To decrease swelling/inflammation, To increase ROM Ultrasound (thermal/non thermal): Yes For the Purpose of:: To decrease pain, To decrease swelling/inflammation, To increase ROM, To improve muscle performance and motor function This patient was last seen in our office 09/11/19. Pertinent comments regarding their Physical therapy will appear below: Pt. has not been seen in several months and will be DC from Pt at this point in time. At this point I will be discontinuing this patient from physical therapy. I would be happy to see this patient again in the future if found appropriate by the physician. Thank you! Luis Jordan, DEREK
== END 2019-09-11 19:00 | disposition home or self-care (01) ==
LOC: PT 10:00
PROVIDERS: Family Provider Family Medicine Geriatric Medicine; PCP Family Medicine Geriatric Medicine; Referring Provider Family Medicine Geriatric Medicine; Visit Provider Family Medicine Geriatric Medicine
DX: M54.5 Low back pain (principal)
CPT/HCPCS: 97035; 97110; 97161

== ENCOUNTER → 2020-06-25 15:12 | Outpatient (CLI) | payer MEDICARE, SELFPAY ==
[2019-04-24 10:32] VITALS: BMI 24.7
--- NOTE | 2020-06-25 15:13 | BI_ITS ---
MAMMOGRAPHY - BILATERAL SCREENING REASON FOR EXAM: Female, 74 years old. Routine annual screening examination. PERTINENT HISTORY: Non-contributory. Remote right stereotactic breast biopsy TECHNIQUE: Digital bilateral breast michell (3D mammographic acquisition) in the CC and MLO projections. 2-D mediolateral oblique (MLO) and craniocaudad (CC) views of both breasts were obtained. CAD: Full Field Digital Mammography with Computer Added Detection was performed. COMPARISON: Comparison is made with prior study dated 03/02/2017 and 12/18/2011. FINDINGS: Breast Composition: There are scattered areas of fibroglandular density. I suspect a 1 cm well-defined nodule in the upper lateral portion of the left breast. This may represent a small cyst. Correlation with ultrasound is recommended. A tissue clip marker is seen in the upper lateral aspect of the right breast. No other significant abnormalities are identified. BI/SCREEN MAMM (CAD) W/MICHELL BILAT IMPRESSION: Possible 1 cm well-defined nodule in the upper lateral portion of the left breast. Correlation with ultrasound is recommended ASSESSMENT CATEGORY: BIRADS Category 0: Incomplete. Need additional imaging evaluation. A letter regarding these results will be sent to the patient by the facility within 30 days. Approximately 10% of breast cancers are not detected by mammography. A normal mammogram should not delay biopsy of a clinically suspicious abnormality. [id number] Electronically Signed: Herbert Bautista, at 8:26 EST , Service support ,
--- OUTSIDE RECORDS SUMMARY | 2020-08-04 05:00 | XMS RPT_ITS | CCD ---
:1945 External Reference #:[id number] Author Organization [facility] Care Team Providers Name Role Phone MICHAEL, A Unavailable Unavailable QUERESHY, A Unavailable Unavailable Horace Unavailable Unavailable Horace Unavailable Unavailable Horace Unavailable Unavailable Horace, K Primary Care Provider Horace, K Primary Care Provider Allergies Reported Allergen Reaction(s) Severity Date of Onset Location Adhesive Tape Rash Mild 04-14-2016 - [place], [place] ([address]) Adrenergic Other (See Comments) 04-14-2016 [facility] [place] ([address]) Metoprolol 04-14-2016 - [place], [place] ([address]) Medications Current Medications Medication Name Sig Date Prescriber Location Acetaminophen acetaminophen (TYLENOL) 06-25-2019 [place], [place] tablet 650 mg ([address]) acetaminophen (TYLENOL) 500 MG Historical [place] ([address]) tablet Take 500 mg by mouth every 6 hours as needed for Pain 0 Active ALPRAZolam 1 mg, Oral, NIGHTLY PRN, 06-25-2019 [place], [place] ([address]) Anxiety, Starting Sun06/25/19 at 0200 ALPRAZolam (XANAX) 1 MG 02-26-2016 Historical Provider [place], [place] tablet TAKE ONE TABLET AT ([address] ) BEDTIME 5 02/26/2016 Active amLODIPine 2.5 mg, Oral, DAILY, First dose 06-25-2019 [place], [place] ([address]) on Sun06/25/19 at 0900 amLODIPine (NORVASC) 5 MG tablet Take 0.5 05-21-2019 [place], [place] ([address]) tablets by mouth daily 30 tablet 3 05/21/2019 Active apixaban apixaban (ELIQUIS) 5 MG 10-10-2019 Willie Santiago [place] TABS tablet Take 1 tablet (4 5237) by mouth 2 times daily 60 tablet 5 10/10/2019 Active apixaban (ELIQUIS) 5 MG TABS 02-27-2019 Kimberley Martinez [place] tablet Take 1 tablet by mouth 2 ([address]) times daily 60 tablet 5 02/27/2019 Active Cholecalciferol 5,000 Units, Oral, DAILY, 06-25-2019 [place] First dose on Sun06/25/19 at ([address]) 0900 vitamin D (CHOLECALCIFEROL) 5000 Historical Prov ider [place] units CAPS capsule Take 5,000 Units (79753) by mouth daily 0 Active clopidogrel clopidogrel (PLAVIX) 75 MG 06-16-2019 [place], [place] tablet take 1 tablet by (646 37) mouth daily 90 tablet 3 06/16/2019 Active Docusate docusate sodium (COLACE) 06-26-2019 [place] capsule 100 mg ([address]) dofetilide dofetilide (TIKOSYN) 500 01-24-2019 Camden Samson [place] MCG capsule Indications: (45 040) Persistent atrial fibrillation TAKE ONE CAPSULE BY MOUTH TWICE DAILY 180 capsule 3 01/24/2019 Active ezetimibe ezetimibe (ZETIA) 10 MG 09-23-2019 [place] tablet Take 1 tablet by (010 37) mouth daily 30 tablet 5 09/23/2019 Active ezetimibe (ZETIA) 10 MG tablet Take 1 03-25-2019 [place] ([address]) tablet by mouth daily 30 tablet 5 03/25/2019 Active Isosorbide isosorbide mononitrate (IMDUR) 60 09-23-2019 [place] ([address]) MG extended release tablet Take 1 tablet by mouth daily 30 tablet 5 09/23/2019 Active Losartan losartan (COZAAR) 25 MG tablet 08-18-2019 [place] ([address]) Take 1 tablet by mouth daily 30 tablet 5 08/18/2019 Active 50 mg, Oral, DAILY, First dose on Sun06-25-2019 [facility] [place] ([address]) 06/25/19 at 0900 losartan (COZAAR) 100 MG tablet Take 0.5 06-13-2019 [place] ([address]) tablets by mouth daily 90 tablet 3 06/13/2019 Active MAGNESIUM GLUCONATE 500 mg, Oral, DAILY, 06-25-2019 [facility]- First dose on Sun [place], [place] ([address]) 06/25/19 at 0900 Magnesium Hydroxide magnesium hydroxide 06-25-2019 [facility] (MILK OF MAGNESIA) 400 [place], [place] ([address]) MG/5ML suspension 30 mL Nitroglycerin nitroGLYCERIN 06-26-2019 Breadeo Hawkins [facility] (NITRODUR) 0.2 MG/HR [place] ([address]) Place 1 patch onto the skin as needed (chest pain) 30 patch 3 06/26/2019 Active nitroglycerin (NITRO-BID) 06-25-2019 - 06-25-2019 Nakia Alcantara [facility], 2 % ointment 0.5 inch [place] ([address]) nitroGLYCERIN (NITROSTAT) 06-24-2019 [facility], [place] tablet 0.4 mg [place] ([address]) nitroGLYCERIN (NITROSTAT) 07-02-2018 Alma Rosa Londono [facility], 0.4 MG [place] tablet [place] ([address]) Indications: Atrial fibrillation, persistent up to max of 3 total doses. If no relief after 1 dose, call 911. 25 tablet 12 07/02/2018 Active pantoprazole pantoprazole (PROTONIX) 40 MG 06-25-2019 [place] tablet Take 1 tablet by mouth 2 (53596) times daily (before meals) 30 tablet 3 06/26/2019 Active 40 mg, Oral, DAILY BEFORE 06-16-2019 - 06-26-2019 [place] ([address]) BREAKFAST, First dose on Sun06/25/19 at 0700 Do not crush or break. ranolazine ranolazine (RANEXA) 500 07-25-2019 Logan Ortiz [place], [place] MG extended release ([address]) tablet Take 1 tablet by mouth 2 times daily 60 tablet 3 07/25/2019 Active rosuvastatin 40 mg, Oral, NIGHTLY, 06-25-2019 [employer], TRACEY First dose on Sun ([address]) 06/25/19 at 2100 CRESTOR 40 MG tablet TAKE ONE 02-26-2016 Historical Provide r [employer] TRACEY TABLET DAILY AT BEDTIME 12 (4523 7) 02/26/2016 Active Sodium Chloride sodium chloride flush 0.9 % [facility] (87937) traZODone 150 mg, Oral, NIGHTLY, First 06-25-2019 [employer] TRACEY dose on Sun06/25/19 at 0215 (92055) Completed/Discontinuned Medications Medication Name Sig Date Prescriber Location b complex vitamins b complex vitamins Historical Provi mitali [place], capsule capsule Take 1 [place] ([address]) capsule by mouth daily 0 Active b complex vitamins capsule Take 1 Historical Pro vider [employer], TRACE[place] (08429) capsule by mouth daily 0 Active b complex vitamins capsule Take 1 Historical Pro vider [employer] TRACE[place] (74589) capsule by mouth daily 0 Active b complex vitamins capsule Take 1 Historical Pro vider [employer] (02733) capsule by mouth daily 0 Suspended Famotidine famotidine (PEPCID) 06-25-2019 - Alonzo Janet [employer]- tablet 20 mg 06-25-2019 [place] ([address]) Magnesium Magnesium 500 MG Historical Provider [facility] [employer]- TABS Take 500 [place]cg [place] ([address]) mouth daily 0 Active Magnesium 500 MG TABS Take 500 mcg Historical Pr [facility] [employer] [place], TRACEY ([address]) by mouth daily 0 Active Magnesium 500 MG TABS Take 500 mcg Historical Pr [facility] [place] [place] ([address]) by mouth daily 0 Active Magnesium 500 MG TABS Take 500 mcg Historical Pr [facility] [place] ([address]) by mouth daily 0 Suspended Multiple Vitamins TABS Multiple Vitamins Historical Pr [facility] [employer] [employer] [place] TABS Take 1 capsule (58120) by mouth daily 0 Active Multiple Vitamins TABS Take 1 Historical Provide [place] ([address]) capsule by mouth daily 0 Active Multiple Vitamins TABS Take 1 Historical Provide r [employer] [place] ([address]) capsule by mouth daily 0 Active Multiple Vitamins TABS Take 1 Historical Provide r [facility] [place] ([address]) capsule by mouth daily 0 Suspended POLYETHYLENE GLYCOL polyethylene glycol Historical Pro vider [facility], 3350 (MIRALAX) powder Take [place] (14 [address]) 17 g by mouth as needed 0 Active Problems Active Problems Category Problem Name Status Date Location Cardiac dysrhythmias Paroxysmal atrial Active 02-25-2019 - [facility]- [place], [place] ([address]) Coronary atherosclerosis Stented coronary artery Active 04-14 - [facility]- and other heart disease [place] ([address]) Disorders of lipid Hyperlipidemia Active [facility]alt- [place] ([address]) Esophageal disorders Gastroesophageal reflux Active - [facility] disease [place] ([address]) Essential hypertension Hypertensive disorder Active [facility] ([address]) Paralysis Paraparesis Active 02-17-2019 - [facility] ([address]) Unclassified Patient encounter status Active [facility] ([address]) Past or Other Problems Category Problem Name Status Date Location Nonspecific chest pain Chest pain Completed 02-17-2019 - [facility] ([address]) Other aftercare Long-term current use Completed 05-02-2016 - [facility], of anticoagulant [place] ([address]) Other connective Imaging of thorax Completed 02-25-2019 - [facility], tissue disease abnormal [place] ([address]) Unclassified Encounter for screening Completed 05-20-2018 - [facility] mammogram for malignant Syst [place] ([address]) neoplasm of breast Results Result Name Value Range Unit Interpretation Flag Date Location routine ekg treadmill stress test on 2019-07-02 Routine Patient Name: AKUA SAINZ Normal 07-02-2019 [facility] EKG Health Treadmill Sy stem Stress ([address]) Test Ultrasound Exam Date/Time 07/02/2019 16:23:04 EST Exam Routine EKG Treadmill Stress Test Ordering Physician CAMDEN SAMSON Accession Number [id number] Reason For Exam Chest pain Report EXERCISE ECG STRESS TEST Modified Neto Protocol PATIENT: Akua Sainz STUDY DATE: 07/02/2019 : 1945 AGE: 73 HT/WT: 167.6 cm (66 71.4 kg in) (157.1 lb) GENDER: F BP: 140 / 80 LOCATION: [facility] Robert Tijerina PATIENT Outpatient and Isa Wu STATUS: [facility] *ORDERING PHYSICIAN: * Camden Samson MD *SUPERVISING PHYSICIAN: * Nabila Dudley MD *RN: * Grabiel Santana *READING PHYSICIAN: * Nabila Dudley MD INDICATIONS: Abnormal ECG (R94.31). Persistent Atrial Fibril lation (I48.19). HISTORY: Dyslipidemia. Myocardial infarction. Family history of cardiovascular disease. Chest Pain/ discomfort with exertion . Last Calcium Channel Nataliia taken 07/01/2019 09:00 PM Tobacco us e former Hypertension treated Paroxysmal atrial fibrillation. Medicat ions: Clopidogrel (Plavix). Losartan (Cozaar). Amlodipine (Norvasc ). Apixaban (Eliquis). Dofetilide (Tikosyn). Pravastatin (Crest or, Pravachol). Allergies: Patient is NPO per policy. Catheteriz ation (2019). There was a stenosis which was treated with a stent. CONCLUSIONS SUMMARY: 1. Stress ECG conclusions: The stress ECG is negative for is chemia. 2. Normal study after maximal exercise. STUDY DATA: Exercise ECG stress test. Procedure: Initial set up. A baseline ECG was recorded. Surface ECG leads and blood press ure measurements were monitored. Treadmill exercise testing was performed using the modified Neto protocol. The patient exercised for 13 min 4 sec, to a maximal work rate of 8.6 mets. Exercise was termin ated due to moderate fatigue. Exercise was terminated when the patient's Gabriel scale was 17. Study status: Routine. Patient status: Outpatient. P re pain assessment is 0 out of 10. Post pain assessment is 0 out of 10. Location: Echo laboratory. Consent: The procedure was review ed with the patient and the patient voices understanding. Study comp letion: The patient tolerated the procedure well. There were no comp lications. Discharge: Discharge instructions given The patient was disc harged to homewhile ambulatory. FINDINGS BASELINE ECG: Normal sinus rhythm. Nonspecific T wave change s. STRESS PROTOCOL: + +---+ + +--------- + +Stage +HR +BP +Symptoms +Comments + + +---+ + +--------- + +Rest +64 +140/80 (100)+No symptoms. +SpO2 @ 100% + + +---+ + +--------- + +Peak stress +127+180/70 (107)+Fatigue. +SpO2 @ 95% + + +---+ + +--------- + +Recovery +97 +150/80 (103)+Fatigue, Chest +Chest Tightness + + + + +Pressure. +7/10. + + +---+ + +--------- + +Late recovery+78 +122/70 (87) +No symptoms. +Chest Tightnes s + + + + + +0/10. + + +---+ + +--------- + STRESS RESULTS: There is a normal resting blood pressure wit h an appropriate response to stress. The rate-pressure product fo r the peak heart rate and blood pressure was 87485 mm Hg/min. The patie nt experienced atypical anginal during stress, which resolved spontaneously. Peak heart rate during stress was 127 bpm (86 % of maximal predicted heart rate). The maximal predicted heart r ate was 147 bpm.The target heart rate was achieved. The heart rate recov esteban at one minute is normal. The heart rate at 1 minute into recovery w as 112 bpm. The heart rate response to stress was normal. STRESS ECG: There was no ischemic ST depression. Rare isolat ed ventricular ectopy. The stress ECG is negative for ischemia. Electronically signed by Nabila Dudley MD 07/02/2019 17:06 Prior Signatures: Final Dictated: 07/02/2019 5:06 pm Dictating Physician: NABILA DUDLEY Signed Date and Time: 07/02/2019 5:06 pm Signed by: NABILA DUDLEY cr chest pa/lat on 2019-07-02 CR Chest PA/LAT Patient Name: AKUA SAINZ 07-02-2019 [facility] ([id number] ) Diagnostic Radiology Exam Date/Time 07/02/2019 15:03:40 EST Exam CR Chest PA/LAT Ordering Physician CAMDEN SAMSON Accession Number [id number] CPT4 Codes 18490 () Reason For Exam Chest pain Report Indication: Chest pain. Frontal and lateral views of the chest are compared to the s tudy dated 06/24/2019. The heart is not enlarged. Coronary artery stent s are visualized. There are atherosclerotic calcifications of the thoracic aorta. The mediastinum and pulmonary vascularity are within normal limits. The lungs are mildly hyperinflated. There are no acu te infiltrates. IMPRESSION: 1. No active intrathoracic disease. Mild hyperinflation. No significant change when compared to the previous study. Report Dictated on Final Dictated: 07/02/2019 3:08 pm Dictating Physician: DO LEWIS ANTHONY Signed Date and Time: 07/02/2019 3:09 pm Signed by: DO LEWIS ANTHONY Transcribed Date and Time: 07/02/2019 3:08 No panel information on 2019-07-02 EXERCISE ECG STRESS TEST 07-02 [facility] Modified Neto Protocol [place], [place] PATIENT: Akua Sainz STUDY DATE: 07/02/2019 ([id number]) : 1945 AGE: 73 HT/WT: 167.6 cm (66 71.4 kg in) (157.1 lb) GENDER: F BP: 140 / 80 LOCATION: [facility] Robert Tijerina PATIENT Outpatient and Isa Wu STATUS: [facility] *ORDERING PHYSICIAN: * Camden Samson MD *SUPERVISING PHYSICIAN: Nabila Mota MD *RN: Jeff LeREADING PHYSICIAN: * Nabila Dudley MD INDICATIONS: Abnormal ECG (R94.31). Persistent Atrial Fib rillation (I48.19). HISTORY: Dyslipidemia. Myocardial infarction. Family histor y of cardiovascular disease. Chest Pain/ discomfort with exertion . Last Calcium Channel Nataliia taken 07/01/2019 09:00 PM Tobacco us e former Hypertension treated Paroxysmal atrial fibrillation. Medic ations: Clopidogrel (Plavix). Losartan (Cozaar). Amlodipine (Norva sc). Apixaban (Eliquis). Dofetilide (Tikosyn). Pravastatin (Cre stor, Pravachol). Allergies: Patient is NPO per policy. Cathete rization (2019). There was a stenosis which was treated with a steven nt. CONCLUSIONS SUMMARY: 1. Stress ECG conclusions: The stress ECG is negative for is chemia. 2. Normal study after maximal exercise. STUDY DATA: Exercise ECG stress test. Procedure: Initial setup. A baseline ECG was recorded. Surface ECG leads and blood press ure measurements were monitored. Treadmill exercise testing was performed using the modified Neto protocol. The patient exercised for 13 min 4 sec, to a maximal work rate of 8.6 mets. Exercise was termin ated due to moderate fatigue. Exercise was terminated when the patient's Gabriel scale was 17. Study status: Routine. Patient status: Outpatien t. Pre pain assessment is 0 out of 10. Post pain assessment is 0 out of 10. Location: Echo laboratory. Consent: The procedure was rev iewed with the patient and the patient voices understanding. Study com pletion: The patient tolerated the procedure well. There were no comp lications. Discharge: Discharge instructions given The patient was dis charged to homewhile ambulatory. FINDINGS BASELINE ECG: Normal sinus rhythm. Nonspecific T wave jessica nges. STRESS PROTOCOL: + +---+ + +--------- + +Stage +HR +BP +Symptoms +Comments + + +---+ + +--------- + +Rest +64 +140/80 (100)+No symptoms. +SpO2 @ 10 0% + + +---+ + +--------- + +Peak stress +127+180/70 (107)+Fatigue. +SpO2 @ 95 % + + +---+ + +--------- + +Recovery +97 +150/80 (103)+Fatigue, Chest +Chest Tig htness + + + + +Pressure. +7/10. + + +---+ + +--------- + +Late recovery+78 +122/70 (87) +No symptoms. +Chest Tig htness + + + + + +0/10. + + +---+ + +--------- + STRESS RESULTS: There is a normal resting blood pressure wi th an appropriate response to stress. The rate-pressure product fo r the peak heart rate and blood pressure was 48121 mm Hg/min. The patie nt experienced atypical anginal during stress, which resolved spontaneously. Peak heart rate during stress was 127 bpm (8 6% of maximal predicted heart rate). The maximal predicted heart r ate was 147 bpm.The target heart rate was achieved. The heart rate recov esteban at one minute is normal. The heart rate at 1 minute into recovery w as 112 bpm. The heart rate response to stress was normal. STRESS ECG: There was no ischemic ST depression. Rare isol ated ventricular ectopy. The stress ECG is negative for ischemia . Electronically signed by Nabila Dudley MD 07/02/2019 17:06 Prior Signatures: [facility] Incoming Cardiolo gy Results From [facility] - 07/02/2019 5:06 PM EST EXERCISE ECG STRESS TEST 07-02-2019 [facility] Modified Neto Protocol [place], [place] PATIENT: Akua Sainz STUDY DATE: 07/02/2019 ([id number]) : 1945 AGE: 73 HT/WT: 167.6 cm (66 71.4 kg in) (157.1 lb) GENDER: F BP: 140 / 80 LOCATION: [facility] PATIENT Outpatient and [facility] STATUS: [facility] *ORDERING PHYSICIAN: * Camden Samson MD *SUPERVISING PHYSICIAN: * Nabila Dudley MD *RN: Grabiel Myles *READING PHYSICIAN: * Nabila Dudley MD INDICATIONS: Abnormal ECG (R94.31). Persistent Atrial Fibril lation (I48.19). HISTORY: Dyslipidemia. Myocardial infarction. Family history of cardiovascular disease. Chest Pain/ discomfort with exertion . Last Calcium Channel Nataliia taken 07/01/2019 09:00 PM Tobacco us e former Hypertension treated Paroxysmal atrial fibrillation. Medicat ions: Clopidogrel (Plavix). Losartan (Cozaar). Amlodipine (Norvasc ). Apixaban (Eliquis). Dofetilide (Tikosyn). Pravastatin (Crest or, Pravachol). Allergies: Patient is NPO per policy. Catheteriz ation (2019). There was a stenosis which was treated with a stent. CONCLUSIONS SUMMARY: 1. Stress ECG conclusions: The stress ECG is negative for is chemia. 2. Normal study after maximal exercise. STUDY DATA: Exercise ECG stress test. Procedure: Initial set up. A baseline ECG was recorded. Surface ECG leads and blood press ure measurements were monitored. Treadmill exercise testing was performed using the modified Neto protocol. The patient exercised for 13 min 4 sec, to a maximal work rate of 8.6 mets. Exercise was termin ated due to moderate fatigue. Exercise was terminated when the patient's Gabriel scale was 17. Study status: Routine. Patient status: Outpatient. P re pain assessment is 0 out of 10. Post pain assessment is 0 out of 10. Location: Echo laboratory. Consent: The procedure was review ed with the patient and the patient voices understanding. Study comp letion: The patient tolerated the procedure well. There were no comp lications. Discharge: Discharge instructions given The patient was disc harged to homewhile ambulatory. FINDINGS BASELINE ECG: Normal sinus rhythm. Nonspecific T wave change s. STRESS PROTOCOL: + +---+ + +--------- + +Stage +HR +BP +Symptoms +Comments + + +---+ + +--------- + +Rest +64 +140/80 (100)+No symptoms. +SpO2 @ 100% + + +---+ + +--------- + +Peak stress +127+180/70 (107)+Fatigue. +SpO2 @ 95% + + +---+ + +--------- + +Recovery +97 +150/80 (103)+Fatigue, Chest +Chest Tightness + + + + +Pressure. +7/10. + + +---+ + +--------- + +Late recovery+78 +122/70 (87) +No symptoms. +Chest Tightnes s + + + + + +0/10. + + +---+ + +--------- + STRESS RESULTS: There is a normal resting blood pressure wit h an appropriate response to stress. The rate-pressure product fo r the peak heart rate and blood pressure was 35704 mm Hg/min. The patie nt experienced atypical anginal during stress, which resolved spontaneously. Peak heart rate during stress was 127 bpm (86 % of maximal predicted heart rate). The maximal predicted heart r ate was 147 bpm.The target heart rate was achieved. The heart rate recov esteban at one minute is normal. The heart rate at 1 minute into recovery w as 112 bpm. The heart rate response to stress was normal. STRESS ECG: There was no ischemic ST depression. Rare isolat ed ventricular ectopy. The stress ECG is negative for ischemia. Electronically signed by Nabila Dudley MD 07/02/2019 17:06 Prior Signatures: Patient Name: AKUA SAINZ [id number] 07-02-2019 [facility] ---Diagnostic Radiology--- Exam Date/Time 07/02/2019 15:03:40 EST Health- Exam CR Chest P A/LAT [place], [place] Ordering Physician CAMDEN SAMSON ([id number]) Accession Number [id number] CPT4 Codes 88122 () Reason F or Exam Chest pain Report Indication: Chest pain. Frontal and latera l views of the chest are compared to the study dated 06/24/2019. The he art is not enlarged. Coronary artery stents are visualized. There are atherosclerotic calcifications of the thoracic aorta. The me diastinum and pulmonary vascularity are within normal limits. The lung s are mildly hyperinflated. There are no acute infiltrates. IMPRESSION: 1 . No active intrathoracic disease. Mild hyperinflation. No significant c hange when compared to the previous study. Report Dictated on Workstati on: BCHDS1 --- Final --- Dictated: 07/02/2019 3:08 pm Dictating Phy sician: DO LEWIS ANTHONY Signed Date and Time: 07/02/2019 3:09 p m Signed by: DO LEWIS ANTHONY Transcribed Date and Time: 07/02/2019 3 :08 [facility] Incoming Radiology Results From [facility] - 2018 3:10 PM EST 07-02-2019 [facility], [place] Patient Name: AKUA SAINZ ([id number]) ---Diagnostic Radiology--- Exam Date/Time 07/02/2019 15:03:40 EST Exam CR Chest PA/LAT Ordering Physician CAMDEN SAMSON Accession Number [id number] CPT4 Codes 71784 () Reason For Exam Chest pain Report Indication: Chest pain. Frontal and lateral views of the chest are compared to the s tudy dated 06/24/2019. The heart is not enlarged. Coronary artery stent s are visualized. There are atherosclerotic calcifications of the thoracic aorta. The mediastinum and pulmonary vascularity are within normal limits. The lungs are mildly hyperinflated. There are no acu te infiltrates. IMPRESSION: 1. No active intrathoracic disease. Mild hyperinflation. No significant change when compared to the previous study. Report Dictated on --- Final --- Dictated: 07/02/2019 3:08 pm Dictating Physician: DO LEWIS ANTHONY Signed Date and Time: 07/02/2019 3:09 pm Signed by: DO LEWIS ANTHONY Transcribed Date and Time: 07/02/2019 3:08 No panel information on 2019-06-26 [facility] 06-26-2019 [place], [place] ([id number] Test Date: 2019-06-25 Pat Name: Akua Sainz Department: 1AU Room: [id number] Gender: F Early Learning Teacher: JIMY : 1945 Requested By: Order Number: [id number] Reading MD: Carl Batista Measurements Intervals [place] Rate: 49 P: 58 [place]: 164 QRS: 9 QRSD: 103 T: 23 QT: 480 QTc: 434 Interpretive Statements Sinus bradycardia Borderline T wave abnormalities Compared to ECG 06/24/2019 22:27:59 T-wave abnormality now present Electronically Signed On 06-26-2019 12:53:24 EST by Loyd Craft Incoming Cardiolo gy Results From [facility] - 06/26/2019 12:54 PM EST [facility] 06-26-2019 [place] ([id number]) Test Date: 2019-06-25 Pat Name: Akua Sainz Department: 1AU Room: [facility] Gender: F Early Learning Teacher: JIMY : 1945 Requested By: Order Number: [id number] Reading MD: Carl Batista Measurements Intervals [place] Rate: 49 P: 58 [place]: 164 QRS: 9 QRSD: 103 T: 23 QT: 480 QTc: 434 Interpretive Statements Sinus bradycardia Borderline T wave abnormalities Compared to ECG 06/24/2019 22:27:59 T-wave abnormality now present Electronically Signed On 06-26-2019 12:53:24 EST by Carl Batista troponin i on 06-25 Troponin I.cardiac < 0.012 0.000-0.034 ng/mL Normal 9 [facility] [Mass/Vol] (06439) Comment: Result Comment: . Performed By: #### HEMDF, BM P3, LFT3, PT/AP, TROPN, LIPD2 #### [facility] [address] [address] [place] [address] Troponin I.cardiac < 0.012 0.000-0.034 ng/mL Normal 9 [facility] [Mass/Vol] (07428) Comment: Result Comment: . Performed By: #### HEMDF, BM P3, LFT3, PT/AP, TROPN, LIPD2 #### [employer] [address] [address] [place], [place] Troponin I.cardiac < 0.012 0.000-0.034 ng/mL Normal 9 [facility] [Mass/Vol] (66790) Comment: Result Comment: . Performed By: #### HEMDF, BM P3, LFT3, PT/AP, TROPN, LIPD2 #### [facility] [address] [address] nt pro bnp on 06-25 Natriuretic peptide B (Bld) 83 0-125 pg/mL Normal [facility] [Mass/Vol] (57387) Comment: Performed By: #### HEMDF, BM P3, LFT3, PT/AP, TROPN, LIPD2 #### [facility] [address] [address] magnesium on 2018-08 Magnesium [Mass/Vol] 2.0 1.6-2.3 mg/dL Normal 9 [facility] (09542) Comment: Performed By: #### HEMDF, BM P3, LFT3, PT/AP, TROPN, LIPD2 #### [facility] [address] [place] [address] lipase on 2019-06-13 3 Lipase [Catalytic 197 23-300 U/L Normal 06-25-2019 [facility] activity/Vol] (39899 ) Comment: Performed By: #### HEMDF, BM P3, LFT3, PT/AP, TROPN, LIPD2 #### [address] [place] [address] hemogram w/ autodiff on 2019-06-25 Abs Baso Cnt 0.0 0.0-0.2 10*3/uL Normal 06-25-2019 [facility] (19994) Comment: Performed By: #### HEMDF, BM P3, LFT3, PT/AP, TROPN, LIPD2 #### [address] [place] [address] Abs Neutrophile Cnt 3.5 1.8-7.0 10*3/uL Normal 06-25-2019 [facility] (29482) Comment: Performed By: #### HEMDF, BM P3, LFT3, PT/AP, TROPN, LIPD2 #### [address] [place] [address] Basophils/100 WBC (Bld) 0.5 0.0-2.0 % Normal 2018 [facility] (67667) Comment: Performed By: #### HEMDF, BM P3, LFT3, PT/AP, TROPN, LIPD2 #### [address] [place] [address] Eosinophils (Bld) [#/Vol] 0.1 0.0-0.5 10*3/uL Normal 06-13 [facility] (45204) Comment: Performed By: #### HEMDF, BM P3, LFT3, PT/AP, TROPN, LIPD2 #### [address] [address] [place], [place] Eosinophils/100 WBC (Bld) 1.7 1.0-6.0 % Normal 06-13 [facility] (35608) Comment: Performed By: #### HEMDF, BM P3, LFT3, PT/AP, TROPN, LIPD2 #### [address] Erythrocyte distribution 13.3 11.5-14.5 % Normal 06-25 [facility] width (RBC) [Ratio] (51564) Comment: Performed By: #### HEMDF, BM P3, LFT3, PT/AP, TROPN, LIPD2 #### [address] Granulocytes/100 WBC (Bld) 53.0 40.0-80.0 % Normal [facility] (37692) Comment: Performed By: #### HEMDF, BM P3, LFT3, PT/AP, TROPN, LIPD2 #### [address] Hematocrit (Bld) [Volume 37.8 35.0-47.0 % Normal 06-25 [facility] fraction] (62459) Comment: Performed By: #### HEMDF, BM P3, LFT3, PT/AP, TROPN, LIPD2 #### [address] Hemoglobin (Bld) 12.7 11.7-16.0 g/dL Normal 06-25-2019 [facility] [Mass/Vol] (80982) Comment: Performed By: #### HEMDF, BM P3, LFT3, PT/AP, TROPN, LIPD2 #### [address] Lymphocytes (Bld) [#/Vol] 2.4 1.0-4.3 10*3/uL Normal 06-13 [facility] (44225) Comment: Performed By: #### HEMDF, BM P3, LFT3, PT/AP, TROPN, LIPD2 #### [address] [place] [address] Lymphocytes/100 WBC (Bld) 36.6 20.0-40.0 % Normal 06-13 [facility] (04736) Comment: Performed By: #### HEMDF, BM P3, LFT3, PT/AP, TROPN, LIPD2 #### [address] [place], [place] MCH (RBC) [Entitic mass] 32.0 26.0-34.0 pg Normal 06-25 [facility] (21294) Comment: Performed By: #### HEMDF, BM P3, LFT3, PT/AP, TROPN, LIPD2 #### [address] MCHC (RBC) [Mass/Vol] 33.6 32.0-36.0 % Normal 06-25-20 19 [facility] (86661) Comment: Performed By: #### HEMDF, BM P3, LFT3, PT/AP, TROPN, LIPD2 #### [address] [place], [place] MCV (RBC) [Entitic vol] 95.2 79.0-98.0 fL Normal 2018 [facility] (70287) Comment: Performed By: #### HEMDF, BM P3, LFT3, PT/AP, TROPN, LIPD2 #### [address] Monocytes (Bld) [#/Vol] 0.5 0.0-0.8 10*3/uL Normal 2018 [facility] (12957) Comment: Performed By: #### HEMDF, BM P3, LFT3, PT/AP, TROPN, LIPD2 #### [address] Monocytes/100 WBC (Bld) 8.2 2.0-10.0 % Normal 2018 [facility] (32735) Comment: Performed By: #### HEMDF, BM P3, LFT3, PT/AP, TROPN, LIPD2 #### [address] [place], [place] Platelet mean volume (Bld) 7.9 7.4-10.4 fL Normal [facility] [Entitic vol] (16638 ) Comment: Performed By: #### HEMDF, BM P3, LFT3, PT/AP, TROPN, LIPD2 #### [address] [place], [place] Platelets (Bld) [#/Vol] 214 140-440 10*3/uL Normal 2018 [facility] (28529) Comment: Performed By: #### HEMDF, BM P3, LFT3, PT/AP, TROPN, LIPD2 #### [address] [place], [place] RBC (Bld) [#/Vol] 3.97 3.80-5.20 10*6/uL Normal 06-25-2019 [facility] (25334) Comment: Performed By: #### HEMDF, BM P3, LFT3, PT/AP, TROPN, LIPD2 #### [address] [place], [place] WBC (Bld) [#/Vol] 6.6 3.6-10.7 10*3/uL Normal 06-25-2019 [facility] (16463) Comment: Performed By: #### HEMDF, BM P3, LFT3, PT/AP, TROPN, LIPD2 #### [address] [place], [place] cr chest portable o n 2019-06-25 CR Chest Portable Patient Name: AKUA SAINZ 06-25-2019 [facility] ([id number] ) Diagnostic Radiology Exam Date/Time 06/24/2019 22:58:04 EST Exam CR Chest Portable Ordering Physician CORNELIA MARTINES CHARLES G Accession Number [id number] CPT4 Codes 92249 () Reason For Exam cp Report Portable chest 06/24/2019: Clinical Information: Chest pain. Findings: A single AP portable view of the chest was obtaine d at 2248 hours. Comparison was made to the prior study 04/25/2019. The trachea is midline. The heart is not enlarged. No focal areas of consolidation or volume loss are seen. There are no pleural effusions. The pulmonary vasculature does not appear congested. The vis ualized bony structures are intact. Impression: No acute process. Report Dictated on Final Dictated: 06/24/2019 11:09 pm Dictating Physician: MD ARAUJO RISA Signed Date and Time: 06/24/2019 11:10 pm Signed by: MD ARAUJO RISA Transcribed Date and Time: 06/24/2019 11:09 comp metabolic panel on 2019-06-25 ALT [Catalytic activity/Vol] 36 13-69 U/L Normal 1 08-25-2018 [facility] ([id number]) Comment: Performed By: #### HEMDF, BM P3, LFT3, PT/AP, TROPN, LIPD2 #### [address] [address] Calcium [Mass/Vol] 10.6 8.4-10.4 mg/dL High 06-25-2019 [facility] (86551) Comment: Performed By: #### HEMDF, BM P3, LFT3, PT/AP, TROPN, LIPD2 #### [address] [address] [place] [address] Glucose [Mass/Vol] 123 70-100 mg/dL High 06-25-2019 [facility] (49031) Comment: Performed By: #### HEMDF, BM P3, LFT3, PT/AP, TROPN, LIPD2 #### [address] [address] [place] [address] Urea nitrogen [Mass/Vol] 16 7-20 mg/dL Normal 06-25 [facility] (09363) Comment: Performed By: #### HEMDF, BM P3, LFT3, PT/AP, TROPN, LIPD2 #### [address] [address] [place] [address] ALP [Catalytic activity/Vol] 67 38-126 U/L Normal 1 08-25-2018 [facility] (51870) Comment: Performed By: #### HEMDF, BM P3, LFT3, PT/AP, TROPN, LIPD2 #### [address] [place], [place] Anion gap [Moles/Vol] 7 Normal 06-25-20 [facility] (58543) Comment: Performed By: #### HEMDF, BM P3, LFT3, PT/AP, TROPN, LIPD2 #### [address] [place], [place] AST [Catalytic activity/Vol] 27 15-46 U/L Normal 1 08-25-2018 [facility] (98645) Comment: Performed By: #### HEMDF, BM P3, LFT3, PT/AP, TROPN, LIPD2 #### [address] [place], [place] Bilirubin [Mass/Vol] 0.4 0.2-1.3 mg/dL Normal 9 [facility] (56098) Comment: Performed By: #### HEMDF, BM P3, LFT3, PT/AP, TROPN, LIPD2 #### [address] [place], [place] CO2 [Moles/Vol] 24 22-30 mmol/L Normal 06-25-2019 [facility] (72199) Comment: Performed By: #### HEMDF, BM P3, LFT3, PT/AP, TROPN, LIPD2 #### [address] [place], [place] Creatinine [Mass/Vol] 0.91 0.52-1.25 mg/dL Normal 06-25-20 [facility] (84532) Comment: Performed By: #### HEMDF, BM P3, LFT3, PT/AP, TROPN, LIPD2 #### [address] GFR/1.73 sq M > 60.0 >60 mL/min/{1.73_m2} Normal 9 [facility] predicted among Syst em (52330) blacks MDRD (S/P/Bld) [Vol rate/Area] Comment: Performed By: #### HEMDF, BM P3, LFT3, PT/AP, TROPN, LIPD2 #### [facility] [address] [address] [place], [place] GFR/1.73 sq M > 60.0 >60 mL/min/{1.73_m2} Normal 9 [facility] predicted among Syst em (48698) non-blacks MDRD (S/P/Bld) [Vol rate/Area] Comment: Result Comment: Source- MDRD equation with creatinine calibration to IDMS(NKDEP) eGFR not recommended for kevin g dose adjustment Performed By: #### HEMDF, BM P3, LFT3, PT/AP, TROPN, LIPD2 #### [facility] [address] [place], [place] Protein [Mass/Vol] 7.4 6.3-8.2 g/dL Normal 06-25-2019 [facility] (48234) Comment: Performed By: #### HEMDF, BM P3, LFT3, PT/AP, TROPN, LIPD2 #### [facility] [address] [place], [place] Potassium [Moles/Vol] 3.9 3.5-5.1 mmol/L Normal 06-25-20 19 [facility] (06791) Comment: Performed By: #### HEMDF, BM P3, LFT3, PT/AP, TROPN, LIPD2 #### [facility] [address] [place], [place] Sodium [Moles/Vol] 138 135-145 mmol/L Normal 06-25-2019 [facility] (93128) Comment: Performed By: #### HEMDF, BM P3, LFT3, PT/AP, TROPN, LIPD2 #### [facility] [address] [address] [place], [place] Albumin [Mass/Vol] 4.3 3.5-5.0 g/dL Normal 06-25-2019 [facility] (82751) Comment: Performed By: #### HEMDF, BM P3, LFT3, PT/AP, TROPN, LIPD2 #### [facility] [address] [place] [address] Chloride [Moles/Vol] 108 98-107 mmol/L High 9 [facility] (31560) Comment: Performed By: #### HEMDF, BM P3, LFT3, PT/AP, TROPN, LIPD2 #### [facility] [address] [place] [address] No panel information on 2019-06-25 06-25-2019 [place] ([address]) Test Date: 2019-06-24 Pat Name: Akua Sainz Department: [facility] Room: 1C Gender: F Early Learning Teacher: ALYSSIA : 1945 Requested By: Order Number: [id number] Reading MD: Carl Garcia Measurements Intervals [place] Rate: 61 P: 68 [place]: 165 QRS: -16 QRSD: 102 T: 32 QT: 472 QTc: 476 Interpretive Statements Sinus rhythm Left atrial enlargement Borderline left axis deviation Electronically Signed On 06-25-2019 9:10:18 EST by Carl Garcia [facility] Incoming Cardiolo gy Results From [facility] - 06/25/2019 9:11 AM EST [facility] 06-25-2019 [place], [place] ([address]) Test Date: 2019-06-24 Pat Name: Akua Alistair Department: [facility] Room: 1C Gender: F Early Learning Teacher: ALYSSIA : 1945 Requested By: Order Number: [id number] Reading MD: Carl Garcia Measurements Intervals [place] Rate: 61 P: 68 [place]: 165 QRS: -16 QRSD: 102 T: 32 QT: 472 QTc: 476 Interpretive Statements Sinus rhythm Left atrial enlargement Borderline left axis deviation Electronically Signed On 06-25-2019 9:10:18 EST by Carl Garcia Troponin <0.012 0 - 0.034 ng/mL 06-25-2019 [facility] I.cardiac [place], [place] ([address]) [Mass/Vol] Comment: . Test Performed by 06-25-2019 [place] ([address]) [address] [place] [place] [address] Troponin I.cardiac <0.012 0 - 0.034 ng/mL 06-25-2019 [facility] [Mass/Vol] [place] ([address] ) Comment: . Test Performed by [facility] 06-25-2019 [place] ([address]) System, [facility] [place] [address] No panel information on 2019-06-24 Natriuretic peptide B (Bld) 83 0 - 125 pg/mL [place] [Mass/Vol] ([address]) Troponin I.cardiac <0.012 0 - 0.034 ng/mL 06-24-2019 [place] [Mass/Vol] ([address]645) Comment: . Test Performed by 06-24-2019 [facility] [place] ([address]) [facility], [facility] [place] [address] Albumin [Mass/Vol] 4.3 3.5 - 5 g/dL 06-24-2019 [place], [place] ([address]) ALP [Catalytic 67 38 - 126 U/L 06-24-2019 [facility]- activity/Vol] [place] ([address]) ALT [Catalytic 36 13 - 69 U/L 06-24-2019 [facility]- activity/Vol] [place] ([address]) Anion gap 7 mmol/L 06-24-2019 [facility] [facility] [Moles/Vol] [place] ( [address]) AST [Catalytic 27 15 - 46 U/L 06-24-2019 [facility]- activity/Vol] [place] ([address]) Bilirubin Ql (U) 0.4 0.2 - 1.3 mg/dL 06-24-2019 [place], [place] (21 [address]) Calcium [Mass/Vol] 10.6 8.4 - 10.4 mg/dL High 06-24-2019 [place], [place] ([address]) Chloride 108 98 - 107 mmol/L High 06-24-2019 [facility] [facility] [Moles/Vol] [place] ( [address]) CO2 [Moles/Vol] 24 22 - 30 mmol/L 06-24-2019 [place], [place] ([address]) Creatinine 0.91 0.52 - 1.25 mg/dL 06-24-2019 [facility] [Mass/Vol] [place], [place] ([address]) EGFR IF NonAfrican >60.0 >60 mL/min 06-24-2019 [place], [place] ([address]) Comment: Source- MDRD equation with c reatinine calibration to IDMS(NKDEP) eGFR not recommended for kevin g dose adjustment GFR/1.73 sq M >60.0 >60 mL/min/{1.73_m2} 9 [facility] predicted among mL/min [facility] MDRD [place] (S/P/Bld) [Vol (2323 7) rate/Area] Glucose 123 70 - 100 mg/dL High 06-24-2019 [facility] [Mass/Vol] [place] ([address]) Interpretation Abnormal 06-24-2019 [facility] and review of Health - laboratory [place] results ([address]) Lipase [Catalytic 197 23 - 300 U/L 06-24-2019 [facility] activity/Vol] [place] ([address]) Magnesium 2.0 1.6 - 2.3 mg/dL 06-24-2019 [facility] [Mass/Vol] [place] ([address]) Potassium 3.9 3.5 - 5.1 mmol/L 06-24-2019 [facility] [Moles/Vol] [place] ([address]) Protein 7.4 6.3 - 8.2 g/dL 06-24-2019 [facility] [Mass/Vol] [place] ([address]) Sodium 138 135 - 145 mmol/L 06-24-2019 [facility] [Moles/Vol] [place] ([address]) Urea nitrogen 16 7 - 20 mg/dL 06-24-2019 [facility] [Mass/Vol] [place] ([address]) Test Performed 06-24-2019 [facility] by [facility], [address] [place], [address] [facility], ([address]) [place] [address] Absolute Baso # 0.0 0 - 0.2 10*3/uL 06-24-2019 [place] ([address]) Absolute Neut # 3.5 1.8 - 7 10*3/uL 06-24-2019 [place] ([address]) Basophils/100 WBC 0.5 0 - 2 % 06-24-2019 [facility] (Bld) [place] ([address]) Eosinophils (Bld) 0.1 0 - 0.5 10*3/uL 06-24-2019 [facility] [#/Vol] [place] ([address]) Eosinophils/100 1.7 1 - 6 % 06-24-2019 [facility] WBC (Bld) [place] ([address]) Erythrocyte 13.3 11.5 - % 06-24-2019 [facility] distribution 14.5 [facility] (RBC) [place] [Ratio] ([address]) Granulocytes/100 53.0 40 - 80 % 06-24-2019 [facility] WBC (Bld) [place] ([address]) Hematocrit (Bld) 37.8 35 - 47 % 06-24-2019 [facility] [Volume fraction] [place] ([address]) Hemoglobin (Bld) 12.7 11.7 - 16 g/dL 06-24-2019 [facility] [Mass/Vol] [place] ([address]) Lymphocytes (Bld) 2.4 1 - 4.3 10*3/uL 06-24-2019 [facility] [#/Vol] [place] ([address]) Lymphocytes/100 36.6 20 - 40 % 06-24-2019 [facility] WBC (Bld) [place] ([address]) MCH (RBC) 32.0 26 - 34 pg 06-24-2019 [facility] [Entitic mass] [facility] [place] ([address]) MCHC (RBC) 33.6 32 - 36 % 06-24-2019 [facility] [Mass/Vol] [place] ([address]) MCV (RBC) 95.2 79 - 98 fL 06-24-2019 [facility] [Entitic vol] [place] ([address]) Monocytes (Bld) 0.5 0 - 0.8 10*3/uL 06-24-2019 [facility] [#/Vol] [place] ([address]) Monocytes/100 WBC 8.2 2 - 10 % 06-24-2019 [place] (Bld) [place] ([address]) Platelet mean 7.9 7.4 - fL 06-24-2019 [facility] volume (Bld) 10.4 Health- [Entitic vol] [place] ([address]) Platelets (Bld) 214 140 - 440 10*3/uL 06-24-2019 [facility] [#[facility] RBC (Bld) [#/Vol] 3.97 3.8 - 5.2 10*6/uL 06-24-2019 [facility] ([address] WBC (Bld) [#/Vol] 6.6 3.6 - 10*3/uL 06-24-2019 [facility] 10.7 [facility] ([address] Test Performed 06-24-2019 [facility], [address] [place] [facility], ([address]) [place] [address] Patient Name: 06-24-2019 AKUA Murray [facility]- [address] [place] ) [id number] ---Diagnostic Radiology--- Exam Date/Time 06/24/2019 22:58:04 EST Exam CR Chest Portable Ordering Physician CORNELIA MARTINES CHARLES G Accession Number [id number] CPT4 Codes 57751 () Reason For Exam cp Report Portable chest 06/24/2019: Clinical Information: Chest pain. Findings: A single AP portable view of the chest was obtained at 2248 hours. Comparison was made to the prior study 04/25/2019. The trachea is midline. The heart is not enlarged. No focal areas of consolidation or volume loss are seen. There are no pleural effusions. The pulmonary vasculature does not appear congested. The visualized bony structures are intact. Impression: No acute process. Report Dictated on --- Final --- Dictated: 06/24/2019 11:09 pm Dictating Physician: MD ARAUJO RISA Signed Date and Time: 06/24/2019 11:10 pm Signed by: MD ARAUJO RISA Transcribed Date and Time: 06/24/2019 11:09 Loyd Oliva [facility] 11:11 PM EST 06-24-2019 [place], [place] Patient Name: AKUA SAINZ ([id number]) ---Diagnostic Radiology--- Exam Date/Time 06/24/2019 22:58:04 EST Exam CR Chest Portable Ordering Physician CORNELIA MARTINES CHARLES G Accession Number [id number] CPT4 Codes 95466 () Reason For Exam cp Report Portable chest 06/24/2019: Clinical Information: Chest pain. Findings: A single AP portable view of the chest was obtaine d at 2248 hours. Comparison was made to the prior study 04/25/2019. The trachea is midline. The heart is not enlarged. No focal areas of consolidation or volume loss are seen. There are no pleural effusions. The pulmonary vasculature does not appear congested. The vis ualized bony structures are intact. Impression: No acute process. Report Dictated on --- Final --- Dictated: 06/24/2019 11:09 pm Dictating Physician: MD ARAUJO RISA Signed Date and Time: 06/24/2019 11:10 pm Signed by: MD ARAUJO RISA Transcribed Date and Time: 06/24/2019 11:09 act,whole blood on 2019-04-28 ACT,Whole Blood 253 90-134 s High 04-28-2019 [facility] (35330) Comment: Result Comment: ACTBO Performed by [employer] ID: [id number] [facility] [place] ACT testing is not intended for patients taking aprotonin, patients with hematocrits of <20% or >55%, patients using other types of anticoagulati on medications, and patients with Lupus Anticoagulant. Performed By: #### HEMDF, BM P3, LFT3, PT/AP, TROPN, LIPD2 #### [facility] Center[facility] [address] [place] [address] ACT,Whole Blood 298 90-134 s High 04-28-2019 [facility] (76822) Comment: Result Comment: ACTBO Performed by [employer] ID: [id number] [place], [place] ACT testing is not intended for patients taking aprotonin, patients with hematocrits of <20% or >55%, patients using other types of anticoagulati on medications, and patients with Lupus Anticoagulant. Performed By: #### HEMDF, BM P3, LFT3, PT/AP, TROPN, LIPD2 #### [facility] [address] [place] [address] phosphorus on 04-27 Phosphate [Mass/Vol] 3.4 2.5-4.5 mg/dL Normal [facility] (42217) Comment: Performed By: #### HEMDF, BM P3, LFT3, PT/AP, TROPN, LIPD2 #### [facility] [address] [place] [address] magnesium on 04-27 Magnesium [Mass/Vol] 2.1 1.6-2.3 mg/dL Normal [facility] (52028) Comment: Performed By: #### [facility] ### # POINT OF CARE hemogram on 2019-04 Erythrocyte distribution 14.2 11.5-14.5 % Normal 04-27 [facility] width (RBC) [Ratio] (62408) Comment: Performed By: #### [facility] ### # POINT OF CARE Hematocrit (Bld) [Volume 38.0 35.0-47.0 % Normal 04-27 [facility] fraction] (53629) Comment: Performed By: #### [facility] ### # POINT OF CARE Hemoglobin (Bld) 12.9 11.7-16.0 g/dL Normal 04-27-2019 [facility] [Mass/Vol] (60645) Comment: Performed By: #### [facility]RPC ### # POINT OF CARE MCH (RBC) [Entitic mass] 32.1 26.0-34.0 pg Normal 04-27 [facility] (96685) Comment: Performed By: #### [facility] ### # POINT OF CARE MCHC (RBC) [Mass/Vol] 33.9 32.0-36.0 % Normal 04-27-20 19 [facility] (66549) Comment: Performed By: #### [facility] ### # POINT OF CARE MCV (RBC) [Entitic vol] 94.8 79.0-98.0 fL Normal 2018 [facility] (62895) Comment: Performed By: #### [facility] ### # POINT OF CARE Platelet mean volume (Bld) 7.9 7.4-10.4 fL Normal [facility] [Entitic vol] (09624 ) Comment: Performed By: #### [facility] ### # POINT OF CARE Platelets (Bld) [#/Vol] 191 140-440 10*3/uL Normal 2018 [facility] (13916) Comment: Performed By: #### [facility] ### # POINT OF CARE RBC (Bld) [#/Vol] 4.01 3.80-5.20 10*6/uL Normal 04-27-2019 [facility] (46833) Comment: Performed By: #### [facility] ### # POINT OF CARE WBC (Bld) [#/Vol] 5.8 3.6-10.7 10*3/uL Normal 04-27-2019 [facility] (02016) Comment: Performed By: #### [facility] ### # POINT OF CARE basic metabolic panel on 2019-04-27 Anion gap [Moles/Vol] 6 Normal 04-27-20 19 [facility] (05587) Comment: Performed By: #### [facility] ### # POINT OF CARE Calcium [Mass/Vol] 10.3 8.4-10.4 mg/dL Normal 04-27-2019 [facility] (00233) Comment: Performed By: #### [facility] ### # POINT OF CARE CO2 [Moles/Vol] 24 22-30 mmol/L Normal 04-27-2019 [facility] (89052) Comment: Performed By: #### [facility] ### # POINT OF CARE Glucose [Mass/Vol] 83 70-100 mg/dL Normal 04-27-2019 [facility] ([id number]) Comment: Performed By: #### [facility] ### # POINT OF CARE Urea nitrogen [Mass/Vol] 12 7-20 mg/dL Normal 04-27 [facility] ([id number]) Comment: Performed By: #### [facility] ### # POINT OF CARE Creatinine [Mass/Vol] 0.79 0.52-1.25 mg/dL Normal 04-27-20 [facility] ([id number]) Comment: Performed By: #### [facility] ### # POINT OF CARE GFR/1.73 sq M > 60.0 >60 mL/min/{1.73_m2} Normal 9 [facility] among Syst em ([id number]) blacks MDRD (S/P/Bld) [Vol rate/Area] Comment: Performed By: #### [facility] ### # POINT OF CARE GFR/1.73 sq M > 60.0 >60 mL/min/{1.73_m2} Normal 9 [facility] predicted among Syst em ([id number]) non-blacks MDRD (S/P/Bld) [Vol rate/Area] Comment: Result Comment: Source- MDRD equation with creatinine calibration to IDMS(NKDEP) eGFR not recommended for kevin g dose adjustment Performed By: #### [facility] ### # POINT OF CARE Chloride [Moles/Vol] 109 98-107 mmol/L High 9 [facility] ([id number]) Comment: Performed By: #### [facility] ### # POINT OF CARE Potassium [Moles/Vol] 4.3 3.5-5.1 mmol/L Normal 04-27-20 [facility] ([id number]) Comment: Performed By: #### [facility] ### # POINT OF CARE Sodium [Moles/Vol] 139 135-145 mmol/L Normal 04-27-2019 [facility] ([id number]) Comment: Performed By: #### INRPC ### # POINT OF CARE troponin i on 04-26 Troponin I.cardiac < 0.012 0.000-0.034 ng/mL Normal 9 [facility] [Mass/Vol] ([id number]) Comment: Result Comment: < 0.034 = ne gative 0.034 ? 0.120 = indeterminat e > 0.120 = positive Performed By: #### INRPC ### # POINT OF CARE Troponin I.cardiac < 0.012 0.000-0.034 ng/mL Normal 9 [facility] [Mass/Vol] ([id number]) Comment: Result Comment: < 0.034 = ne gative 0.034 ? 0.120 = indeterminat e > 0.120 = positive Performed By: #### INRPC ### # POINT OF CARE Troponin I.cardiac < 0.012 0.000-0.034 ng/mL Normal 9 [facility] [Mass/Vol] ([id number]) Comment: Result Comment: < 0.034 = ne gative 0.034 ? 0.120 = indeterminat e > 0.120 = positive Performed By: #### INRPC ### # POINT OF CARE Troponin I.cardiac < 0.012 0.000-0.034 ng/mL Normal 9 [facility] [Mass/Vol] ([id number]) Comment: Result Comment: < 0.034 = ne gative 0.034 ? 0.120 = indeterminat e > 0.120 = positive Performed By: #### INRPC ### # POINT OF CARE nt pro bnp on 04-26 Natriuretic peptide B (Bld) 145 0-125 pg/mL High [facility] [Mass/Vol] ([id number]) Comment: Performed By: #### INRPC ### # POINT OF CARE magnesium on 04-26 Magnesium [Mass/Vol] 2.0 1.6-2.3 mg/dL Normal 9 [facility] ([id number]) Comment: Performed By: #### INRPC ### # POINT OF CARE hemogram w/ autodiff on 2019-04-26 Abs Baso Cnt 0.1 0.0-0.2 10*3/uL Normal 04-26-2019 [facility] ([id number]) Comment: Performed By: #### INRPC ### # POINT OF CARE Abs Neutrophile Cnt 2.2 1.8-7.0 10*3/uL Normal 04-26-2019 [facility] ([id number]) Comment: Performed By: #### INRPC ### # POINT OF CARE Basophils/100 WBC (Bld) 1.1 0.0-2.0 % Normal 2018 [facility] ([id number]) Comment: Performed By: #### INRPC ### # POINT OF CARE Eosinophils (Bld) [#/Vol] 0.1 0.0-0.5 10*3/uL Normal 04-13 [facility] ([id number]) Comment: Performed By: #### INRPC ### # POINT OF CARE Eosinophils/100 WBC (Bld) 1.8 1.0-6.0 % Normal 04-13 [facility] ([id number]) Comment: Performed By: #### INRPC ### # POINT OF CARE Erythrocyte distribution 14.1 11.5-14.5 % Normal 04-26 [facility] width (RBC) [Ratio] ([id number]) Comment: Performed By: #### INRPC ### # POINT OF CARE Granulocytes/100 WBC (Bld) 45.9 40.0-80.0 % Normal [facility] ([id number]) Comment: Performed By: #### INRPC ### # POINT OF CARE Hematocrit (Bld) [Volume 35.8 35.0-47.0 % Normal 04-26 [facility] fraction] ([id number]) Comment: Performed By: #### INRPC ### # POINT OF CARE Hemoglobin (Bld) 12.2 11.7-16.0 g/dL Normal 04-26-2019 [facility] [Mass/Vol] ([id number]) Comment: Performed By: #### INRPC ### # POINT OF CARE Lymphocytes (Bld) [#/Vol] 2.0 1.0-4.3 10*3/uL Normal 04-13 [facility] ([id number]) Comment: Performed By: #### INRPC ### # POINT OF CARE Lymphocytes/100 WBC (Bld) 41.5 20.0-40.0 % High 04-13 [facility] ([id number]) Comment: Performed By: #### INRPC ### # POINT OF CARE MCH (RBC) [Entitic mass] 32.7 26.0-34.0 pg Normal 04-26 [facility] ([id number]) Comment: Performed By: #### INRPC ### # POINT OF CARE MCHC (RBC) [Mass/Vol] 34.3 32.0-36.0 % Normal 04-26-20 19 [facility] ([id number]) Comment: Performed By: #### INRPC ### # POINT OF CARE MCV (RBC) [Entitic vol] 95.4 79.0-98.0 fL Normal 2018 [facility] ([id number]) Comment: Performed By: #### INRPC ### # POINT OF CARE Monocytes (Bld) [#/Vol] 0.5 0.0-0.8 10*3/uL Normal 2018 [facility] ([id number]) Comment: Performed By: #### INRPC ### # POINT OF CARE Monocytes/100 WBC (Bld) 9.7 2.0-10.0 % Normal 2018 [facility] ([id number]) Comment: Performed By: #### INRPC ### # POINT OF CARE Platelet mean volume (Bld) 7.8 7.4-10.4 fL Normal [facility] [Entitic vol] ([id number] ) Comment: Performed By: #### INRPC ### # POINT OF CARE Platelets (Bld) [#/Vol] 193 140-440 10*3/uL Normal 2018 [facility] ([id number]) Comment: Performed By: #### INRPC ### # POINT OF CARE RBC (Bld) [#/Vol] 3.75 3.80-5.20 10*6/uL Low 04-26-2019 [facility] ([id number]) Comment: Performed By: #### INRPC ### # POINT OF CARE WBC (Bld) [#/Vol] 4.8 3.6-10.7 10*3/uL Normal 04-26-2019 [facility] ([id number]) Comment: Performed By: #### INRPC ### # POINT OF CARE echo complete w/wo contrast on 2019-04-26 Echo Patient Name: AKUA SAINZ Normal 04-26-2019 [facility] Complete Health w/wo Sy stem Contrast ([id number]) Ultrasound Exam Date/Time 04/26/2019 16:39:54 EDT Exam Echo Complete w/wo Contrast Ordering Physician [id number] -CHEMO NAJERA Accession Number [id number] Reason For Exam unstable angina Addendum TRANSTHORACIC ECHOCARDIOGRAM (AMENDED REPORT ) PATIENT: Akua Sainz STUDY DATE: 04/26/2019 : 1945 AGE: 73 HT/WT: 167.6 cm (66 69 kg in) (151.7 lb) GENDER: F BP: 161 / 83 LOCATION: [facility] PATIENT Inpatient [facility] STATUS: *ORDERING PHYSICIAN: * Chemo Najera *READING PHYSICIAN: Chio Hannah *WEB SITE DESIGNER: Chio Samson MD RDCS, AE INDICATIONS: Unstable angina. CONCLUSIONS SUMMARY: 1. Left ventricle: Normal Average LV Global Longitudinal Str ain is -22 The cavity size is normal. Wall thickness is normal. Systoli c function is normal by the biplane method of disks. The estim ated ejection fraction is 60%. There are no regional wall motion abnormalities. Doppler parameters are consistent with abnorm al left ventricular relaxation (grade 1 diastolic dysfunction). 2. Left atrium: The atrium is moderately dilated. 3. 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 4. Mitral valve: There is trivial, less than 1+ regurgitatio n. 5. Aortic valve: Trileaflet; mildly thickened, mildly calcif ied leaflets. 6. Tricuspid valve: There is trivial, less than 1+ regurgita tion. 7. Pulmonic valve: There is trivial, less than 1+ regurgitat ion. 8. Aorta: The aorta is mildly dilated. The ascending aorta i nternal dimension in the A-P direction, maximal systolic dimension i s 3.9 cm. 9. Pulmonary arteries: Systolic pressure is within the kristine l range. 10. Inferior vena cava: The vessel is normal. The IVC collap ses by greater than 50% with inspiration c/w CVP~3 mmHg. STUDY DATA: Complete transthoracic echocardiogram. Procedure : Image quality was good. M-mode, complete 2D, complete spectral Dop pler, and color flow Doppler images were acquired and archived for [facility] storage and are available for subsequent review. Study statu s: Routine. Patient status: Inpatient. FINDINGS LEFT VENTRICLE: Average LV Global Longitudinal Strain is -22 The cavity size is normal. Wall thickness is normal. Systolic fu nction is normal by the biplane method of disks. The estimated ejectio n fraction is 60%. There are no regional wall motion abnormalities. Dop pler parameters are consistent with abnormal left ventricular rel axation (grade 1 diastolic dysfunction). RIGHT VENTRICLE: The cavity size is normal. Systolic functio n is normal. Right ventricular systolic pressure is within the no rmal range. VENTRICULAR SEPTUM: There is no evidence of a ventricular se ptal defect. LEFT ATRIUM: The atrium is moderately dilated. RIGHT ATRIUM: The atrium is normal in size. ATRIAL SEPTUM: The septum bows from left to right, consisten t with increased left atrial pressure. Color Doppler shows no shunt . There is a medium-sized septum primum aneurysm, predominantly within the right atrial cavity, with a 2.0 cm maximal prolapse. MITRAL VALVE: Mildly calcified annulus. Doppler: There is tr ivial, less than 1+ regurgitation. AORTIC VALVE: Trileaflet; mildly thickened, mildly calcified leaflets. Doppler: There is mild, 1+ regurgitation. TRICUSPID VALVE: Mildly thickened leaflets. Doppler: There i s trivial, less than 1+ regurgitation. PULMONIC VALVE: Structurally normal valve. Doppler: There is trivial, less than 1+ regurgitation. AORTA: The aorta is mildly dilated. PULMONARY ARTERY: Systolic pressure is within the normal ran ge. Main pulmonary artery: Normal. PERICARDIUM: There is no pericardial effusion. SYSTEMIC VEINS: Inferior vena cava: The vessel is normal. The IVC collapses by greater than 50% with inspiration. Measurements Value Reference Aortic root ID 3.2 cm <4.0 Aortic root ID, STJ, ED 2.8 cm 2.0 - 3.2 Aortic root ID/bsa, STJ, ED 1.6 cm/m^2 1.1 - 1.9 Value Reference Ascending aorta ID, max (H) 3.8 cm 1.9 - 3.5 Ascending aorta ID/bsa, max 2.1 cm/m^2 1.0 - 2.2 Ascending aorta ID, A-P, S 3.9 cm Ascending aorta ID/bsa, A-P, S 2.1 cm/m^2 Left ventricle Value Reference GLS, 2D 21.54 % LV ID, ED 5.1 cm 3.8 - 5.2 LV ID, ES 3.1 cm 2.2 - 3.5 LV ID/bsa, ED 2.8 cm/m^2 2.3 - 3.1 LV ID/bsa, ES 1.7 cm/m^2 1.3 - 2.1 LV PW thickness, ED (H) 1.1 cm 0.6 - 0.9 LV PW/LV ID ratio, ED 0.21 LV wall mass (H) 217 g 66 - 150 LV wall mass/bsa (H) 121 g/m^2 44 - 88 Stroke volume/bsa, 1-p A2C 36.8 ml/m^2 LV end-diastolic volume, 1-p A4C 82 ml 48 - 140 LV end-systolic volume, 1-p A4C 33 ml 12 - 60 LV end-diastolic volume, 2-p 92 ml 46 - 106 LV end-systolic volume, 2-p 35 ml 14 - 42 LV E/e', lateral 10.3 LV E/e', medial 6.1 LV E/e', average 7.7 Ventricular septum Value Reference IVS thickness, ED (H) 1.1 cm 0.6 - 0.9 LVOT Value Reference LVOT ID, A-P 1.9 cm LVOT mean velocity, S 0.8 m/sec LVOT peak gradient, S 5 mm Hg Stroke volume (SV), LVOT DP 73 ml Stroke index (SV/bsa), LVOT DP 40 ml/m^2 Aortic valve Value Reference Aortic valve peak velocity, S 1.3 m/sec Aortic peak gradient, S 7 mm Hg Aortic regurg pressure half-time 1002 ms Left atrium Value Reference LA volume/bsa, ES, 2-p (H) 42 ml/m^2 16 - 34 Mitral valve Value Reference Mitral E-wave peak velocity 0.5 m/sec Mitral A-wave peak velocity 0.7 m/sec Mitral deceleration time 262 ms Mitral E/A ratio, peak 0.8 Pulmonary arteries Value Reference PA pressure, S, DP 26 mm Hg Tricuspid valve Value Reference Tricuspid regurg peak velocity 2.4 m/sec <=2.8 Tricuspid peak RV-RA gradient 23 mm Hg Right atrium Value Reference RA area, ES, A4C (L) 8 cm^2 10 - 18 Systemic veins Value Reference Estimated RAP 3 mm Hg Right ventricle Value Reference RV ID, minor axis, ED, A4C base 2.9 cm 2.5 - 4.1 RV ID, minor axis, ED, A4C mid 1.9 cm 1.9 - 3.5 TAPSE, 2D 2.3 cm 1.7 - 3.1 RV pressure, S, DP 26 mm Hg RV s', lateral (H) 13.5 cm/sec 6.0 - 13.4 Legend: (L) and (H) anselmo values outside specified reference range. (AMENDED REPORT ) Electronically signed by Camden Samson MD 06/11/2019 09:37 Prior Signatures: Final Addendum Signed Date and Time: 06/11/2019 9:37 am Signed by: CAMDEN SAMSON Report TRANSTHORACIC ECHOCARDIOGRAM PATIENT: Akua Sainz STUDY DATE: 04/26/2019 : 1945 AGE: 73 HT/WT: 167.6 cm (66 69 kg in) (151.7 lb) GENDER: F BP: 161 / 83 LOCATION: [facility] PATIENT Inpatient [facility] STATUS: *ORDERING PHYSICIAN: * Chemo Najera *READING PHYSICIAN: * Camden *WEB SITE DESIGNER: * Jacqueline Samson MD RDCS, AE INDICATIONS: Unstable angina. CONCLUSIONS SUMMARY: 1. Left ventricle: Normal Average LV Global Longitudinal Str ain is -22 The cavity size is normal. Wall thickness is normal. There a re no regional wall motion abnormalities. Doppler parameters are consistent with abnormal left ventricular relaxation (grade 1 diastolic dysfunction). 2. Left atrium: The atrium is moderately dilated. 3. 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 4. Mitral valve: There is trivial, less than 1+ regurgitatio n. 5. Aortic valve: Trileaflet; mildly thickened, mildly calcif ied leaflets. 6. Tricuspid valve: There is trivial, less than 1+ regurgita tion. 7. Pulmonic valve: There is trivial, less than 1+ regurgitat ion. 8. Aorta: The aorta is mildly dilated. The ascending aorta i nternal dimension in the A-P direction, maximal systolic dimension i s 3.9 cm. 9. Pulmonary arteries: Systolic pressure is within the kristine l range. 10. Inferior vena cava: The vessel is normal. The IVC collap ses by greater than 50% with inspiration c/w CVP~3 mmHg. STUDY DATA: Complete transthoracic echocardiogram. Procedure : Image quality was good. M-mode, complete 2D, complete spectral Dop pler, and color flow Doppler images were acquired and archived for per [facility] storage and are available for subsequent review. Study statu s: Routine. Patient status: Inpatient. FINDINGS LEFT VENTRICLE: Average LV Global Longitudinal Strain is -22 The cavity size is normal. Wall thickness is normal. Systolic fu nction is normal by the biplane method of disks. There are no regional wall motion abnormalities. Doppler parameters are consistent with abnormal left ventricular relaxation (grade 1 diastolic dysfunction). RIGHT VENTRICLE: The cavity size is normal. Systolic functio n is normal. Right ventricular systolic pressure is within the no rmal range. VENTRICULAR SEPTUM: There is no evidence of a ventricular se ptal defect. LEFT ATRIUM: The atrium is moderately dilated. RIGHT ATRIUM: The atrium is normal in size. ATRIAL SEPTUM: The septum bows from left to right, consisten t with increased left atrial pressure. Color Doppler shows no shunt . There is a medium-sized septum primum aneurysm, predominantly within the right atrial cavity, with a 2.0 cm maximal prolapse. MITRAL VALVE: Mildly calcified annulus. Doppler: There is tr ivial, less than 1+ regurgitation. AORTIC VALVE: Trileaflet; mildly thickened, mildly calcified leaflets. Doppler: There is mild, 1+ regurgitation. TRICUSPID VALVE: Mildly thickened leaflets. Doppler: There i s trivial, less than 1+ regurgitation. PULMONIC VALVE: Structurally normal valve. Doppler: There is trivial, less than 1+ regurgitation. AORTA: The aorta is mildly dilated. PULMONARY ARTERY: Systolic pressure is within the normal ran ge. Main pulmonary artery: Normal. PERICARDIUM: There is no pericardial effusion. SYSTEMIC VEINS: Inferior vena cava: The vessel is normal. The IVC collapses by greater than 50% with inspiration. Measurements Value Reference Aortic root ID 3.2 cm <4.0 Aortic root ID, STJ, ED 2.8 cm 2.0 - 3.2 Aortic root ID/bsa, STJ, ED 1.6 cm/m^2 1.1 - 1.9 Value Reference Ascending aorta ID, max (H) 3.8 cm 1.9 - 3.5 Ascending aorta ID/bsa, max 2.1 cm/m^2 1.0 - 2.2 Ascending aorta ID, A-P, S 3.9 cm Ascending aorta ID/bsa, A-P, S 2.1 cm/m^2 Left ventricle Value Reference GLS, 2D 21.54 % LV ID, ED 5.1 cm 3.8 - 5.2 LV ID, ES 3.1 cm 2.2 - 3.5 LV ID/bsa, ED 2.8 cm/m^2 2.3 - 3.1 LV ID/bsa, ES 1.7 cm/m^2 1.3 - 2.1 LV PW thickness, ED (H) 1.1 cm 0.6 - 0.9 LV PW/LV ID ratio, ED 0.21 LV wall mass (H) 217 g 66 - 150 LV wall mass/bsa (H) 121 g/m^2 44 - 88 Stroke volume/bsa, 1-p A2C 36.8 ml/m^2 LV end-diastolic volume, 1-p A4C 82 ml 48 - 140 LV end-systolic volume, 1-p A4C 33 ml 12 - 60 LV end-diastolic volume, 2-p 92 ml 46 - 106 LV end-systolic volume, 2-p 35 ml 14 - 42 LV ejection fraction, 2-p 62 % 54 - 74 LV E/e', lateral 10.3 LV E/e', medial 6.1 LV E/e', average 7.7 Ventricular septum Value Reference IVS thickness, ED (H) 1.1 cm 0.6 - 0.9 LVOT Value Reference LVOT ID, A-P 1.9 cm LVOT mean velocity, S 0.8 m/sec LVOT peak gradient, S 5 mm Hg Stroke volume (SV), LVOT DP 73 ml Stroke index (SV/bsa), LVOT DP 40 ml/m^2 Aortic valve Value Reference Aortic valve peak velocity, S 1.3 m/sec Aortic peak gradient, S 7 mm Hg Aortic regurg pressure half-time 1002 ms Left atrium Value Reference LA volume/bsa, ES, 2-p (H) 42 ml/m^2 16 - 34 Mitral valve Value Reference Mitral E-wave peak velocity 0.5 m/sec Mitral A-wave peak velocity 0.7 m/sec Mitral deceleration time 262 ms Mitral E/A ratio, peak 0.8 Pulmonary arteries Value Reference PA pressure, S, DP 26 mm Hg Tricuspid valve Value Reference Tricuspid regurg peak velocity 2.4 m/sec <=2.8 Tricuspid peak RV-RA gradient 23 mm Hg Right atrium Value Reference RA area, ES, A4C (L) 8 cm^2 10 - 18 Systemic veins Value Reference Estimated RAP 3 mm Hg Right ventricle Value Reference RV ID, minor axis, ED, A4C base 2.9 cm 2.5 - 4.1 RV ID, minor axis, ED, A4C mid 1.9 cm 1.9 - 3.5 TAPSE, 2D 2.3 cm 1.7 - 3.1 RV pressure, S, DP 26 mm Hg RV s', lateral (H) 13.5 cm/sec 6.0 - 13.4 Legend: (L) and (H) anselmo values outside specified reference range. Electronically signed by Camden Samson MD 04/27/2019 08:15 Prior Signatures: Final Dictated: 04/27/2019 8:15 am Dictating Physician: CAMDEN SAMSON Signed Date and Time: 04/27/2019 8:15 am Signed by: CAMDEN SAMSON diagnostic catherization on 2019-04-26 Diagnostic Patient Name: AKUA SAINZ Normal 04-26-2019 [facility] Catherization alth [facility] ([id number]) [facility] [employer] [place] Exam Date/Time 04/26/2019 11:57:48 EDT Exam Diagnostic Catherization Ordering Physician DO COATES ERIC W Accession Number [id number] Reason For Exam Unstable angina Report [facility]HETER[facility] Patient: Akua Sainz Procedure Date: 04/26/2019 : 1945 Age: 73 Gender: F Patient Type: Outpatient Procedure physician: Anselmo Vega MD Fellow: Referring Physician: Brandyn Coates INDICATIONS: Atherosclerotic coronary artery disease. Angina refractory to medical management. Previous stent. Angina-CCS class III (marked limitation of ordinary activity) Procedures performed: # Right coronary angiography. # Left heart catheterization. # Left coronary angiography. # Pressure flow reserve measurement. # Percutaneous intervention on the 70% stenosis in the proxi mal LAD. Pressure flow reserve measurement. Pressure flow reserve yuliya surement. Interventional IVUS examination. Stent placement. Interventi onal IVUS examination. SUMMARY: 73yo female with multivessel CAD and multiple prior PCI of all epicardial vessels (proxRCA CARO most recently 02/2019), a dmitted with recurrent escalating anginal pain despite medical therapy. N ormal left ventricle systolic function. Pt has h/o PAF and has been on chronic Plav ix and Eliquis. On review of latest cath films, pt noted to have moderat e stenosis of proximal left anterior descending coronary at proximal edg e of 2012 proxLAD stent. Pt referred for repeat cath and pot ential PCI. IMPRESSIONS: 1. Moderate-severe borderline flow-limiting stenosis of prox imal left anterior descending coronary at proximal edge of prior stent . FFR 0.82. Refractory symptoms despite medical mgmt. 2. Stable mild-moderate disease of remaining right-dominant coronary arteries. Recent proximal right coronary artery stent widely patent. [id number] in-stent restenosis of proximal OM1 (iFR 0 .99). 3. Normal LVEDP. 4. Successful FFR and IVUS-guided PCI of proximal left anter ior descending coronary with direct deployment of 3.5x15mm Xienc e CARO (at proximal edge of prior left anterior descending coronary stent). RECOMMENDATIONS: 1. Patient management should include aggressive risk factor modification and a cardiac rehabilitation program. The patie nt was counseled regarding the importance of adherence to the presc ribed antiplatelet therapy and a low fat diet. The patient should continue with the present medications. 2. Add optimal medical therapy of the patient's disease. 3. Continue clopidogrel (Plavix), 75 mg PO daily. 4. Given prior h/o PAF and coronary stents (pt on chronic El iquis and Plavix), pt should continue both Eliquis and Plavix long-ter m. Pt reloaded with Plavix 600mg at time of PCI. Aspirin loaded wi PCI, but will not be continued. HISTORY: Chest pain. Atrial fibrillation. Atrial fibrillatio n. Atrial flutter. Unstable angina. PMH: Myocardial infarction. Risk fa ctors: Hypertension. Dyslipidemia. Family history is signifi cant for co ronary artery disease. Medications: Aspirin. Warfarin (Couma din). P ravastatin (Pravachol). Warfarin (Coumadin). Tikosyn,cozaar. Allergie s: Beta blockers allergy. OTHER allergy. Beta blockers, meto prol, ad hesive tape allergy. Dyslipidemia. Myocardial infarction. Fa sol history of cardiovascular disease. LABS, PRIOR TESTS, PROCEDURES, and SURGERY: Catheterization with coronary intervention (02/26/2019). Catheterization (2011). Total of 3 stents. Last one 2011. PROCEDURE IN DETAIL: Study status: Cardiac cath: urgent. Con sent: The risks, benefits, and alternatives to the procedure and s edation were explained to the patient and informed consent was obtained. Fluoroscop y time: Fluoroscopy time: 14 min. Fluoroscopy dose: Fluorosc opy dose: 38 cGy. Location: Catheterization laboratory. PROCEDURE: 1. Initial setup. The patient was brought to the laboratory. A baseline ECG was recorded. Intravenous access was obtained. Surface ECG leads, blood pressure measurements, and pulse oximetric signals were monitored. 2. Skin preparation. The planned puncture sites were prepped and draped in the usual sterile manner. 3. Local anesthesia. 1% lidocaine was administered to the [facility] radial artery access site. 4. Right radial artery access. A 6Fr/10cm Glidesheath Slende r sheath was advanced into the vessel. 5. Selective right coronary angiography. A 5Fr x 100cm JR4 c atheter was advanced into the right coronary vessel ostium under fluoroscopic guidance. Contrast was injected. Images were ob tained in multiple projections. 6. Left heart catheterization. A 5Fr x 100cm JR4 catheter wa s advanced across the aortic valve to the left ventricle under fluorosc opic guidance. Resting hemodynamics were obtained. 7. Selective left coronary angiography. A 6 Fr EBU Guide cat heter was advanced into the left coronary vessel ostium under fluorosc opic guidance. Contrast was injected. Images were obtained in mul tiple projections. 8. A stent was placed in the stenosis in the proximal LAD. S ee detailed description below (1st lesion intervention). 9. ACT was 253 sec. 10. Pressure derived flow reserve measurement for the lesion in [id number] obtuse marginal. The vessel was entered with a 6Fr x 100cm Launcher EBU3.5 guiding catheter. Flow reserve was yuliya sured using a .014/185cm Verrata Plus Pressure Guide pressure-trey toring guide-wire. 1 measurements were obtained. The flow reserve (pressure-derived FFR) was calculated to be 0.99. Based on f low reserve, the lesion was judged to be nonsignificant. 11. Hemostasis. The 6Fr/10cm Glidesheath Slender sheath was removed. Mechanical compression was applied with a Vasc Band. 1st lesion intervention: Percutaneous intervention on the 70% stenosis in the proxima l LAD. 1. Guider placement: a 6Fr x 100cm Launcher EBU3.5 guiding c atheter was placed in the left main. 2. Pressure-derived flow reserve measurement, using a .014/1 85cm Verrata Plus Pressure Guide pressure-monitoring guide-wire positioned at the distal tip of the catheter. 1 measurements were obtained. The flow reserve (pressure-derived iFR) was calcul ated to be 0.96. 3. Pressure-derived flow reserve measurement, using a .014/1 85cm Verrata Plus Pressure Guide pressure-monitoring guide-wire positioned at the distal tip of the catheter. Steady baselin e values were obtained. Mean arterial pressure and mean distal cooper ry pressures were then obtained at maximum hyperemia with intravenousadenosine at 140mcg/kg/min. 1 measurements were o btained. The flow reserve (pressure-derived FFR) was calculated to be 0.82. Based on the results of this study, the lesion was judged to borderline significant. 4. Pre-intervention intravascular ultrasound evaluation, usi ng a .014 [facility] [place] catheter. The proximal vessel was examine d. 5. Stent placement. A 3.5 mm (D) x 15 mm (L), Xience Kerrie RX (drug eluting) stent was used. The stent was advanced across the l esion and deployed with a single inflation and a maximum pressure of 16 garcía. Distal edge of the stent overlapped with proximal edge of old proximal left anterior descending coronary stent. Diag1 was jailed by the stent but remained patent. 6. Post-intervention intravascular ultrasound evaluation, us ing a .014 [facility] [place] catheter. The proximal vessel was examine d. Based on the results of this study, the lesion was judged to be ad equately treated and no additional intervention was warranted. STUDY COMPLETION: The estimated blood loss was 10 ml. All ca theters inserted during the procedure were removed. The patient mary rated the pr ocedure well and was discharged from the lab. There were no complication s. Administered medications: Midazolam, 2mg, IV, VERSED. NIT ROGLYCER IN (IA), 200mcg, intra-arterially, NITROGLYCERIN (IA). Verap hodan (Isopt in, Calan, Covera), 2.5mg, intra-arterially, VERAPAMIL. Nitr oglycerin, 200mcg, into the coronary artery, NITROGLYCERIN (IC). Adenos ine (Adenoc praveen), infusion rate of 140mcg/kg/min, IV, ADENOSINE (Drip). Aspirin, 24 3mg, PO, ASA. PLAVIX (600 Load), 600mg, PO, PLAVIX (600 Load ). Fentany l, for a total dose of 50mcg, IV, FENTANYL. Heparin, for a t otal dose o f 7000units, IV, HEPARIN. Contrast: 1. ISOVUE 300MG/CC 92 ml (total d ose). CORONARY ARTERIES: The coronary circulation is right dominan t. The left main bifurcates normally into the LAD and circumflex. T he left ante rior descending gives rise to 1 diagonal and 1 septal. The l eft circumfl ex gives rise to 2 obtuse marginals. The right coronary give s rise to th e posterior descending artery, 1 RV marginal, and 1 posterol ateral. Left main: Large. Minor luminal irregularities. LAD: Medium-sized. Mild diffuse disease. Prior intervention: stent in the proximal LAD. The stented segment is patent. Proximal ve ssel lesion : The diagnostic study demonstrated a discrete, 70%stenosis. This lesion appears mildly calcified and consistent with atherosclerotic disease. T here is no evidence of thrombus. It is not a bifurcation les ion. There i s TERI grade 3 flow (brisk flow) across the lesion. The frac tional flow reserve is 0.82. The distal vessel supplies a moderate-sized vascular te rritory. The lesion is a likely culprit for the patient's an ginal sympto ms. The lesion presents an ACC/AHA type B moderate risk le andrew for int ervention. Stent placement was performed, with intravascular ultrasound , jailing the first diagonal, resulting in an excellent alex ographic mecca earance (see 1st lesion intervention). Following interventio n, there is a residual 0% stenosis with TERI grade 3 flow (brisk flow). There were n o site complications. 1st diagonal: Medium-sized. Minor luminal irregularities. Left circumflex: Medium-sized. Minor luminal irregularities. 1st obtuse marginal: Medium-sized. Mild diffuse disease. Ramya or intervention: stent in the proximal OM1. The stented segment is patent. 2nd obtuse marginal: Very small. Right coronary: Medium-sized. Mild diffuse disease. Prior intervention: stent in the proximal RCA. The stented segment is patent. Right posterior descending: Medium-sized. Minor luminal irregularities. RCA posterolateral extension: Medium-sized. Mild diffuse dis ease. LEFT VENTRICLE: A recent ejection fraction by echocardiograp hy is available. AORTIC VALVE: There is no stenosis. HEMODYNAMICS: + + + +Stage description +Condition1:Room Air -+ + + + +LV pressure s/d, ed +137/1, 12 + + + + +Arterial pressure s/d (m)+167/85 (117) + + + + Prepared and electronically signed by Anselmo Vega MD 04/26/2019 18:01 Final Dictated: 04/26/2019 6:02 pm Dictating Physician: MD VEGA MARK E. Signed Date and Time: 04/26/2019 6:02 pm Signed by: MD VEGA MARK E. cr chest portable o n 2019-04-26 CR Chest Portable Patient Name: AKUA SAINZ 04-26-2019 [facility] ([id number] ) Diagnostic Radiology Exam Date/Time 04/25/2019 22:38:02 EDT Exam CR Chest Portable Ordering Physician [id number] PAN Accession Number [id number] CPT4 Codes 69306 () Reason For Exam CP Report SINGLE FRONTAL VIEW OF THE CHEST CLINICAL INDICATION: CP TECHNIQUE: Single frontal view of the chest COMPARISON: 02/25/2019 FINDINGS: Lungs are clear. No pleural effusion or pneumothorax. No vascular congestion. Heart size normal. IMPRESSION: 1. No acute finding. Report Dictated on Final Dictated: 04/25/2019 10:46 pm Dictating Physician: MD VIKRAM, REY Marroquin Signed Date and Time: 04/25/2019 10:46 pm Signed by: MD SUE JOHN R Transcribed Date and Time: 04/25/2019 10:46 basic metabolic panel on 2019-04-26 Anion gap [Moles/Vol] 5 Normal 04-26-20 [facility] ([id number]) Comment: Performed By: #### INRPC ### # POINT OF CARE Calcium [Mass/Vol] 10.0 8.4-10.4 mg/dL Normal 04-26-2019 [facility] ([id number]) Comment: Performed By: #### INRPC ### # POINT OF CARE CO2 [Moles/Vol] 29 22-30 mmol/L Normal 04-26-2019 [facility] ([id number]) Comment: Performed By: #### INRPC ### # POINT OF CARE Glucose [Mass/Vol] 78 70-100 mg/dL Normal 04-26-2019 [facility] (67563) Comment: Performed By: #### INRPC ### # POINT OF CARE Urea nitrogen [Mass/Vol] 13 7-20 mg/dL Normal 04-26 [facility] ([id number]) Comment: Performed By: #### INRPC ### # POINT OF CARE Creatinine [Mass/Vol] 0.78 0.52-1.25 mg/dL Normal 04-26-20 [facility] (53399) Comment: Performed By: #### INRPC ### # POINT OF CARE GFR/1.73 sq M > 60.0 >60 mL/min/{1.73_m2} Normal 9 [facility] predicted among Syst em ([id number]) blacks MDRD (S/P/Bld) [Vol rate/Area] Comment: Performed By: #### INRPC ### # POINT OF CARE GFR/1.73 sq M > 60.0 >60 mL/min/{1.73_m2} Normal 9 [facility] predicted among Syst em ([id number]) non-blacks MDRD (S/P/Bld) [Vol rate/Area] Comment: Result Comment: Source- MDRD equation with creatinine calibration to IDMS(NKDEP) eGFR not recommended for kevin g dose adjustment Performed By: #### INRPC ### # POINT OF CARE Potassium [Moles/Vol] 3.9 3.5-5.1 mmol/L Normal 04-26-20 [facility] ([id number]) Comment: Performed By: #### INRPC ### # POINT OF CARE Chloride [Moles/Vol] 107 98-107 mmol/L Normal [facility] (94028) Comment: Performed By: #### INRPC ### # POINT OF CARE Sodium [Moles/Vol] 140 135-145 mmol/L Normal 04-26-2019 [facility] ([id number]) Comment: Performed By: #### INRPC ### # POINT OF CARE Calcium [Mass/Vol] 10.2 8.4-10.4 mg/dL Normal 04-26-2019 [facility] ([id number]) Comment: Performed By: #### INRPC ### # POINT OF CARE Glucose [Mass/Vol] 100 70-100 mg/dL Normal 04-26-2019 [facility] ([id number]) Comment: Performed By: #### INRPC ### # POINT OF CARE Urea nitrogen [Mass/Vol] 15 7-20 mg/dL Normal 04-26 [facility] ([id number]) Comment: Performed By: #### INRPC ### # POINT OF CARE Anion gap [Moles/Vol] 7 Normal 04-26-20 [facility] ([id number]) Comment: Performed By: #### INRPC ### # POINT OF CARE CO2 [Moles/Vol] 28 22-30 mmol/L Normal 04-26-2019 [facility] (56646) Comment: Performed By: #### INRPC ### # POINT OF CARE Creatinine [Mass/Vol] 0.86 0.52-1.25 mg/dL Normal 04-26-20 [facility] (60270) Comment: Performed By: #### INRPC ### # POINT OF CARE GFR/1.73 sq M > 60.0 >60 mL/min/{1.73_m2} Normal [facility] predicted among Syst em (87519) blacks MDRD (S/P/Bld) [Vol rate/Area] Comment: Performed By: #### INRPC ### # POINT OF CARE GFR/1.73 sq M > 60.0 >60 mL/min/{1.73_m2} Normal 9 [facility] predicted among Syst em (62233) non-blacks MDRD (S/P/Bld) [Vol rate/Area] Comment: Result Comment: Source- MDRD equation with creatinine calibration to IDMS(NKDEP) eGFR not recommended for kevin g dose adjustment Performed By: #### INRPC ### # POINT OF CARE Chloride [Moles/Vol] 106 98-107 mmol/L Normal 9 [facility] ([id number]) Comment: Performed By: #### INRPC ### # POINT OF CARE Potassium [Moles/Vol] 4.0 3.5-5.1 mmol/L Normal 04-26-20 19 [facility] ([id number]) Comment: Performed By: #### INRPC ### # POINT OF CARE Sodium [Moles/Vol] 141 135-145 mmol/L Normal 04-26-2019 [facility] ([id number]) Comment: Performed By: #### INRPC ### # POINT OF CARE prothrombin time on 2019-02-27 INR Coag (PPP) [Relative 1.0 0.9-1.1 Normal 02-27 [facility] time] ([id number]) Comment: Result Comment: Recommended Anticoagulant Therapy: SEE BELOW ----- INR of 2.0 - 3.0 : - Prophylaxis of Venous Thro mbosis (high-risk surgery) - Treatment of Venous Thromb osis - Treatment of Pulmonary Emb olism (Includes tissue heart valves, Acute Myocardial Inf arction to prevent systemic embolism, Valvular Heart Dis ease, and Atrial Fibrillation) ----- INR of 2.5 - 3.5 : - Mechanical Prosthetic Valv es (high risk) - If oral anticoagulant ther apy is used to prevent Myocardial Infarction Performed By: #### INRPC ### # POINT OF CARE PT Coag (PPP) [Time] 10.3 9.0-12.0 s Normal 9 [facility] ([id number]) Comment: Result Comment: . Performed By: #### INRPC ### # POINT OF CARE troponin i on 02-26 Troponin I.cardiac < 0.012 0.000-0.034 ng/mL Normal 9 [facility] [Mass/Vol] (76034) Comment: Result Comment: < 0.034 = ne gative 0.034 ? 0.120 = indeterminat e > 0.120 = positive Performed By: #### INRPC ### # POINT OF CARE Troponin I.cardiac < 0.012 0.000-0.034 ng/mL Normal 9 [facility] [Mass/Vol] ([id number]) Comment: Result Comment: < 0.034 = ne gative 0.034 ? 0.120 = indeterminat e > 0.120 = positive Performed By: #### INRPC ### # POINT OF CARE thyroid stim. hormone on 2019-02-26 Thyroid Stim. 1.467 0.465-4.680 u[IU]/mL Normal 02-26-2019 [facility] Hormone (12354) Comment: Performed By: #### INRPC ### # POINT OF CARE prothrombin time on 2019-02-26 INR Coag (PPP) [Relative 1.0 0.9-1.1 Normal 02-26 [facility] time] ([id number]) Comment: Result Comment: Recommended Anticoagulant Therapy: SEE BELOW ----- INR of 2.0 - 3.0 : - Prophylaxis of Venous Thro mbosis (high-risk surgery) - Treatment of Venous Thromb osis - Treatment of Pulmonary Emb olism (Includes tissue heart valves, Acute Myocardial Inf arction to prevent systemic embolism, Valvular Heart Dis ease, and Atrial Fibrillation) ----- INR of 2.5 - 3.5 : - Mechanical Prosthetic Valv es (high risk) - If oral anticoagulant ther apy is used to prevent Myocardial Infarction Performed By: #### INRPC ### # POINT OF CARE PT Coag (PPP) [Time] 10.3 9.0-12.0 s Normal 9 [facility] (32012) Comment: Result Comment: . Performed By: #### INRPC ### # POINT OF CARE culture urine on 28-02-17 CULTURE URINE CULTURE URINE --> Status: F Normal 02-26-2019 [facility] Normal urogenital deuce present. ([id number]) Comment: Order Comment: Specimen Sour ce Comment:Urine, clean catch Performed By: #### INRPC ### # POINT OF CARE complete urinalysis on 2019-02-26 Appearance (U) Clear Normal 02-26-2019 [facility] (78651) Comment: Result Comment: Reference Ra nge: Clear Performed By: #### INRPC ### # POINT OF CARE Bacteria LM.HPF (Urine sed) Negative Normal [facility] [#/Area] (85802) Comment: Result Comment: Reference Ra nge: Negative Performed By: #### INRPC ### # POINT OF CARE Bilirubin,Urine Negative Normal 02-26-2019 [facility] (45239) Comment: Result Comment: Reference Ra nge: Negative Performed By: #### INRPC ### # POINT OF CARE Cast, Hyaline 0 - 2 Normal 02-26-2019 [facility] ([id number]) Comment: Result Comment: Reference Ra nge: Negative Performed By: #### INRPC ### # POINT OF CARE Color (U) Yellow Normal 02-26-2019 [facility] (28953) Comment: Result Comment: Reference Ra nge: Lt. Yellow Performed By: #### INRPC ### # POINT OF CARE Glucose Ql (U) Normal Normal 02-26-2019 [facility] (13018) Comment: Result Comment: Reference Ra nge: Normal (<70) Performed By: #### INRPC ### # POINT OF CARE Ketone,Urine Trace Normal 02-26-2019 [facility] (16963) Comment: Result Comment: Reference Ra nge: Negative Performed By: #### INRPC ### # POINT OF CARE Leukocytes,Urine 25 Nereida/uL Normal 02-26-2019 [facility] (32371) Comment: Result Comment: Reference Ra nge: Negative Performed By: #### INRPC ### # POINT OF CARE Mucous Threads Few Normal 02-26-2019 [facility] (02839) Comment: Result Comment: Reference Ra nge: Negative Performed By: #### INRPC ### # POINT OF CARE Nitrites,Urine Negative Normal 02-26-2019 [facility] (85482) Comment: Result Comment: Reference Ra nge: Negative Performed By: #### INRPC ### # POINT OF CARE Occult Blood,Urine Negative Normal 02-26-2019 [facility] (61485) Comment: Result Comment: Reference Ra nge: Negative Performed By: #### INRPC ### # POINT OF CARE pH (U) 6.5 5.0-8.0 Normal 02-26-2019 [facility] (65511) Comment: Performed By: #### INRPC ### # POINT OF CARE Protein (U) [Mass/Vol] 10 mg/dL Normal 019 [facility] (53525) Comment: Result Comment: Reference Ra nge: Negative Performed By: #### INRPC ### # POINT OF CARE RBC LM.HPF (Urine sed) 0 - [address] [place] [address] ([id number]) [#/Area] Comment: Result Comment: Reference Ra nge: 0-2 Performed By: #### INRPC ### # POINT OF CARE Specific Dell,Urine 1.030 1.005-1.030 Normal 02-26 [facility] (33986) Comment: Performed By: #### INRPC ### # POINT OF CARE Squamous Epithelial 0 - 2 Normal 02-26-2019 [facility] (46616) Comment: Result Comment: Reference Ra nge: 3-5 Performed By: #### INRPC ### # POINT OF CARE Urobilinogen,Urine 2 mg/dL Normal 02-26-2019 [facility] (00621) Comment: Result Comment: Reference Ra nge: Normal (0-1) Performed By: #### INRPC ### # POINT OF CARE WBC LM.HPF (Urine sed) 3 - [address] [place] [address] ([id number]) [#/Area] Comment: Result Comment: Reference Ra nge: 0-5 Performed By: #### INRPC ### # POINT OF CARE add on test from his on 2019-02-26 Add on test from HIS Accepted Normal 9 [facility] (94485) Comment: Result Comment: Specimen mick ilable & acceptable for analysis. Performed By: #### INRPC ### # POINT OF CARE troponin i on 02-25 Troponin I.cardiac < 0.012 0.000-0.034 ng/mL Normal 9 [facility] [Mass/Vol] (89201) Comment: Result Comment: < 0.034 = ne gative 0.034 ? 0.120 = indeterminat e > 0.120 = positive Performed By: #### INRPC ### # POINT OF CARE prothrombin time on 2019-02-25 INR Coag (PPP) [Relative 1.0 0.9-1.1 Normal 02-25 [facility] time] ([id number]) Comment: Result Comment: Recommended Anticoagulant Therapy: SEE BELOW ----- INR of 2.0 - 3.0 : - Prophylaxis of Venous Thro mbosis (high-risk surgery) - Treatment of Venous Thromb osis - Treatment of Pulmonary Emb olism (Includes tissue heart valves, Acute Myocardial Inf arction to prevent systemic embolism, Valvular Heart Dis ease, and Atrial Fibrillation) ----- INR of 2.5 - 3.5 : - Mechanical Prosthetic Valv es (high risk) - If oral anticoagulant ther apy is used to prevent Myocardial Infarction Performed By: #### INRPC ### # POINT OF CARE PT Coag (PPP) [Time] 10.6 9.0-12.0 s Normal 9 [facility] (89844) Comment: Result Comment: . Performed By: #### INRPC ### # POINT OF CARE magnesium on 02-25 Magnesium [Mass/Vol] 2.1 1.6-2.3 mg/dL Normal 9 [facility] (34973) Comment: Performed By: #### INRPC ### # POINT OF CARE hemogram w/ autodiff on 2019-02-25 Abs Baso Cnt 0.0 0.0-0.2 10*3/uL Normal 02-25-2019 [facility] (17529) Comment: Performed By: #### INRPC ### # POINT OF CARE Abs Neutrophile Cnt 3.3 1.8-7.0 10*3/uL Normal 02-25-2019 [facility] (10708) Comment: Performed By: #### INRPC ### # POINT OF CARE Basophils/100 WBC (Bld) 0.6 0.0-2.0 % Normal 2018 [facility] (72363) Comment: Performed By: #### INRPC ### # POINT OF CARE Eosinophils (Bld) [#/Vol] 0.2 0.0-0.5 10*3/uL Normal 02-10 [facility] (35132) Comment: Performed By: #### INRPC ### # POINT OF CARE Eosinophils/100 WBC (Bld) 2.8 1.0-6.0 % Normal 02-10 [facility] (57882) Comment: Performed By: #### INRPC ### # POINT OF CARE Erythrocyte distribution 13.5 11.5-14.5 % Normal 02-25 [facility] width (RBC) [Ratio] (09441) Comment: Performed By: #### INRPC ### # POINT OF CARE Granulocytes/100 WBC (Bld) 54.2 40.0-80.0 % Normal [facility] (08165) Comment: Performed By: #### INRPC ### # POINT OF CARE Hematocrit (Bld) [Volume 32.8 35.0-47.0 % Low 02-25 [facility] fraction] ([id number]) Comment: Performed By: #### INRPC ### # POINT OF CARE Hemoglobin (Bld) [Mass/Vol] 11.2 11.7-16.0 g/dL Low [facility] (18570) Comment: Performed By: #### INRPC ### # POINT OF CARE Lymphocytes (Bld) [#/Vol] 2.0 1.0-4.3 10*3/uL Normal 02-10 [facility] (52217) Comment: Performed By: #### INRPC ### # POINT OF CARE Lymphocytes/100 WBC (Bld) 32.5 20.0-40.0 % Normal 02-10 [facility] (48559) Comment: Performed By: #### INRPC ### # POINT OF CARE MCH (RBC) [Entitic mass] 32.6 26.0-34.0 pg Normal 02-25 [facility] (07917) Comment: Performed By: #### INRPC ### # POINT OF CARE MCHC (RBC) [Mass/Vol] 34.3 32.0-36.0 % Normal 02-26-20 19 [facility] (43521) Comment: Performed By: #### INRPC ### # POINT OF CARE MCV (RBC) [Entitic vol] 95.2 79.0-98.0 fL Normal 2018 [facility] (68378) Comment: Performed By: #### INRPC ### # POINT OF CARE Monocytes (Bld) [#/Vol] 0.6 0.0-0.8 10*3/uL Normal 2018 [facility] (64622) Comment: Performed By: #### INRPC ### # POINT OF CARE Monocytes/100 WBC (Bld) 9.9 2.0-10.0 % Normal 2018 [facility] (72752) Comment: Performed By: #### INRPC ### # POINT OF CARE Platelet mean volume (Bld) 8.2 7.4-10.4 fL Normal [facility] [Entitic vol] (71692 ) Comment: Performed By: #### INRPC ### # POINT OF CARE Platelets (Bld) [#/Vol] 170 140-440 10*3/uL Normal 2018 [facility] (33407) Comment: Performed By: #### INRPC ### # POINT OF CARE RBC (Bld) [#/Vol] 3.44 3.80-5.20 10*6/uL Low 02-25-2019 [facility] (44189) Comment: Performed By: #### INRPC ### # POINT OF CARE WBC (Bld) [#/Vol] 6.0 3.6-10.7 10*3/uL Normal 02-25-2019 [facility] (82537) Comment: Performed By: #### INRPC ### # POINT OF CARE cr chest portable o n 2019-02-25 CR Chest Portable Patient Name: AKUA SAINZ 02-25-2019 [facility] ([id number] ) Diagnostic Radiology Exam Date/Time 02/25/2019 20:32:36 EDT Exam CR Chest Portable Ordering Physician MD YVROSE, SUSANNAH Accession Number [id number] CPT4 Codes 40098 () Reason For Exam chest pain Report CHEST PORTABLE CLINICAL INDICATION: chest pain TECHNIQUE: Single, portable chest x-ray. COMPARISON: February,. FINDINGS: Patient rotated to the left. Cardiac and mediastinal silhoue tte within normal limits. Lungs show mild, patchy and partially confluent opacities pr ojected over the left lower lung, new from comparison. No significant pleural effusion or apparent pneumothorax. Bony thorax grossly unremarkable. IMPRESSION: 1. Findings which may represent left basilar atelectasis, de veloping or mild mild infiltrate(s), new in the interval. Follow-up c hest x-ray in 4-6 weeks advised to document resolution. Report Dictated on Final Dictated: 02/25/2019 8:35 pm Dictating Physician: MD MILIAN WENDELL Signed Date and Time: 02/25/2019 8:37 pm Signed by: MD MILIAN WENDELL Transcribed Date and Time: 02/25/2019 8:35 comp metabolic panel on 2019-02-25 Calcium [Mass/Vol] 9.4 8.4-10.4 mg/dL Normal 02-25-2019 [facility] ([id number]) Comment: Performed By: #### INRPC ### # POINT OF CARE ALP [Catalytic activity/Vol] 70 38-126 U/L Normal 0 - [facility] (96724) Comment: Performed By: #### INRPC ### # POINT OF CARE ALT [Catalytic activity/Vol] 19 13-69 U/L Normal 0 02-25-2019 [facility] (00317) Comment: Performed By: #### INRPC ### # POINT OF CARE Anion gap [Moles/Vol] 5 Normal 02-26-20 [facility] (22555) Comment: Performed By: #### INRPC ### # POINT OF CARE AST [Catalytic activity/Vol] 20 15-46 U/L Normal 0 02-25-2019 [facility] (23211) Comment: Performed By: #### INRPC ### # POINT OF CARE Bilirubin [Mass/Vol] 0.2 0.2-1.3 mg/dL Normal 9 [facility] (85199) Comment: Performed By: #### INRPC ### # POINT OF CARE CO2 [Moles/Vol] 29 22-30 mmol/L Normal 02-25-2019 [facility] (55836) Comment: Performed By: #### INRPC ### # POINT OF CARE Creatinine [Mass/Vol] 0.75 0.52-1.25 mg/dL Normal 02-26-20 19 [facility] (06057) Comment: Performed By: #### INRPC ### # POINT OF CARE GFR/1.73 sq M > 60.0 >60 mL/min/{1.73_m2} Normal 9 [facility] predicted among Syst em (93534) blacks MDRD (S/P/Bld) [Vol rate/Area] Comment: Performed By: #### INRPC ### # POINT OF CARE GFR/1.73 sq M > 60.0 >60 mL/min/{1.73_m2} Normal 9 [facility] predicted among Syst em (74774) non-blacks MDRD (S/P/Bld) [Vol rate/Area] Comment: Result Comment: Source- MDRD equation with creatinine calibration to IDMS(NKDEP) eGFR not recommended for kevin g dose adjustment Performed By: #### INRPC ### # POINT OF CARE Glucose [Mass/Vol] 132 70-100 mg/dL High 02-25-2019 [facility] (21410) Comment: Performed By: #### INRPC ### # POINT OF CARE Protein [Mass/Vol] 5.8 6.3-8.2 g/dL Low 02-25-2019 [facility] (89495) Comment: Performed By: #### INRPC ### # POINT OF CARE Urea nitrogen [Mass/Vol] 16 7-20 mg/dL Normal 02-25 [facility] (18160) Comment: Performed By: #### INRPC ### # POINT OF CARE Potassium [Moles/Vol] 3.7 3.5-5.1 mmol/L Normal 02-26-20 19 [facility] (54943) Comment: Performed By: #### INRPC ### # POINT OF CARE Albumin [Mass/Vol] 3.4 3.5-5.0 g/dL Low 02-25-2019 [facility] (23128) Comment: Performed By: #### INRPC ### # POINT OF CARE Sodium [Moles/Vol] 144 135-145 mmol/L Normal 02-25-2019 [facility] (14074) Comment: Performed By: #### INRPC ### # POINT OF CARE Chloride [Moles/Vol] 109 98-107 mmol/L High 9 [facility] (13238) Comment: Performed By: #### INRPC ### # POINT OF CARE prothrombin time on 2019-02-21 INR Coag (PPP) [Relative 3.4 0.9-1.1 High 02-21 [facility] time] (22072) Comment: Result Comment: Recommended Anticoagulant Therapy: SEE BELOW ----- INR of 2.0 - 3.0 : - Prophylaxis of Venous Thro mbosis (high-risk surgery) - Treatment of Venous Thromb osis - Treatment of Pulmonary Emb olism (Includes tissue heart valves, Acute Myocardial Inf arction to prevent systemic embolism, Valvular Heart Dis ease, and Atrial Fibrillation) ----- INR of 2.5 - 3.5 : - Mechanical Prosthetic Valv es (high risk) - If oral anticoagulant ther apy is used to prevent Myocardial Infarction Performed By: #### INRPC ### # POINT OF CARE PT Coag (PPP) [Time] 32.7 9.0-12.0 s High 9 [facility] (40758) Comment: Result Comment: . Performed By: #### INRPC ### # POINT OF CARE troponin i on 02-20 Troponin I.cardiac < 0.012 0.000-0.034 ng/mL Normal 9 [facility] [Mass/Vol] (73783) Comment: Result Comment: < 0.034 = ne gative 0.034 ? 0.120 = indeterminat e > 0.120 = positive Performed By: #### INRPC ### # POINT OF CARE prothrombin time on 2019-02-20 INR Coag (PPP) [Relative 2.5 0.9-1.1 [facility] 02-20 [facility] time] (36221) Comment: Result Comment: Recommended Anticoagulant Therapy: SEE BELOW ----- INR of 2.0 - 3.0 : - Prophylaxis of Venous Thro mbosis (high-risk surgery) - Treatment of Venous Thromb osis - Treatment of Pulmonary Emb olism (Includes tissue heart valves, Acute Myocardial Inf arction to prevent systemic embolism, Valvular Heart Dis ease, and Atrial Fibrillation) ----- INR of 2.5 - 3.5 : - Mechanical Prosthetic Valv es (high risk) - If oral anticoagulant ther apy is used to prevent Myocardial Infarction Performed By: #### INRPC ### # POINT OF CARE PT Coag (PPP) [Time] 24.1 9.0-12.0 s [facility] 9 [facility] ([id number]) Comment: Result Comment: . Performed By: #### INRPC ### # POINT OF CARE nm myocardial perf imaging multi spect on 2019-02-20 [place] Patient Name: AKUA SAINZ Normal 02-20-2019 [facility] Myocardial Healt [facility] Perf Sy stem Imaging ([id number]) Multi Spect Nuc Med Exam Date/Time 02/20/2019 12:16:38 EDT Exam NM Myocardial Perf Imaging Multi Spect Ordering Physician ORTIZ CNP, MICHELE Accession Number [id number] CPT4 Codes 84369 (), 32576 (NM EKG TREADMILL - NUCLEAR) Reason For Exam Chest pain Report Nuclear Stress Myocardial Perfusion Study Regadenoson Protocol Gated SPECT Patient: Akua Sainz Height: (66 in) Weight: (150 lb) : 1945 Age: 73 Gender: F Study Date: 02/20/2019 Accession#: Patient Room #: *ORDERING PHYSICIAN: * Logan Ortiz *SUPERVISING PHYSICIAN: * Camden Samson MD *RN: * Rhiannon Scott *NUCLEAR TECH: * Cecilia Hester *READING PHYSICIAN: * Neo Haney MD --- Indications: Chest pain. --- Summary: 1. Normal study after pharmacologic stress without reproduct ion of symptoms. No evidence of myocardial ischemia. No evidence of myocardia l ischemia. 2. Myocardial perfusion imaging: Left ventricular size is no rmal. The TID ratio is 1.14. There is a defect, due to diaphragm attenuati on. 3. Gated SPECT: The left ventricular end-diastolic volume is 108 ml. The left ventricular end-systolic volume is 40 ml. The calculated lef t ventricular ejection fraction during stress is63 %. LV global systolic f unction is normal. 4. Stress ECG conclusions: There was no ischemic ST depressi on. Frequent ventricular monomorphic bigeminy. Occasional isolated monomo rphic ventricular ectopy. --- History: Chest Pain/ discomfort with exertion. Headache, wea kness, dizziness Hypertension treated. Tobacco use former. Atrial fibrillatio n. Atrial flutter. Medications: Pravastatin (Crestor, Pravachol). Aspi rin. Warfarin (Coumadin). Tikosyn,cozaar. Allergies: Beta blockers, metopr ol, adhesive tape allergy. Dyslipidemia. Myocardial infarction. Family hi story of cardiovascular disease. Patient is NPO per policy. No caffei ne per policy. Medication list reviewed with patient and no contraindicated medications have been taken. Hemoglobin, potassium and/or troponin x2 are [facility] policy guidelines. Catheterization (2011). There was a stenosis whi ch was treated with a stent. Total of 3 stents. Last one 2011. --- Study data: Bra or chest circumference is 34 in. The patient 's lungs are clear to auscultation. Heart auscultation by RN revealed a regular rate and rhythm. Pre pain assessment is 0 out of 10. Post pain assess ment is 0 out of 10. Patient status: Inpatient. Gated SPECT; rest/stress. One -day Sestamibi. Consent: The procedure was reviewed with the patient and the patient voices understanding. Study completion: The patient tolerated the p rocedure well and was discharged from the lab. There were no complications . Administered medications: None. --- Procedure data: Initial setup. The patient was brought to [facility] laboratory. A baseline ECG was recorded. Surface ECG leads and blood press ure measurements were monitored. Regadenoson stress test. Stress testing was performed, with regadenoson by intravenous bolus at one minute into the prot ocol, for a total dose of 0.4mgover 10.00 sec, followed by a 5 ml saline flush . Exercise for 4 minutes completed by low level exercise. A pharmacologic [place] [facility] [employer] was used because the patient was physically unable to exercise. --- Baseline ECG: Normal sinus rhythm with normal AV conduction. Stress protocol: + +---+ +--------+ !Stage !HR !BP (mmHg) !Symptoms! + +---+ +--------+ !Rest !58 !153/97 (116) !None ! + +---+ +--------+ !Peak stress !100!148/84 (105) !--------! + +---+ +--------+ !Recovery !89 !139/111 (120)!--------! + +---+ +--------+ !Late recovery!70 !153/73 (100) !None ! + +---+ +--------+ Stress results: Peak heart rate during stress was 100 bpm. ( 68% of maximal predicted heart rate). The maximal predicted heart rate was 147 bpm.The heart rate response to stress is normal. There is an appropriate r esponse to stress. The rate-pressure product for the peak heart rate and blood pressure was 60779 mm Hg/min. The patient experienced no chest pain during stre ss. Stress ECG: There was no ischemic ST depression. Frequent ve ntricular monomorphic bigeminy. Occasional isolated monomorphic ventri cular ectopy. Isotope administration: + + + + !Stage !Rest !Stress ! + + + + !Agent !Tc[99m]-sestamibi!Tc[99m]-sestamibi! + + + + !Dose !8.9 mCi !35 mCi ! + + + + !Injection time!08:05 AM !10:01 AM ! + + + + !Route !IV !IV ! + + + + !Injected by !Pc !Bg ! + + + + Image properties: Imaging information: The study was gated. The image quality was fair. Myocardial perfusion imaging: Left ventricular size is kristine l. The TID ratio is 1.14. There is a defect, due to diaphragm attenuation. Rest: Left ventricular myocardial perfusion is normal in all segments. Perfusion score: 0. Stress: Left ventricular myocardial perfusion is normal in a ll segments. Perfusion score: 0. Gated SPECT: The left ventricular end-diastolic volume is 10 8 ml. The left ventricular end-systolic volume is 40 ml. The calculated lef t ventricular ejection fraction during stress is63 %. LV global systolic f unction is normal. No LV regional wall motion abnormalities. Electronically signed by Neo Haney MD 02/20/2019 16:32 Final Dictated: 02/20/2019 4:32 pm Dictating Physician: NEO HANEY Signed Date and Time: 02/20/2019 4:32 pm Signed by: NEO HANEY prothrombin time on 2019-02-19 INR Coag (PPP) [Relative 1.6 0.9-1.1 High 02-19 [facility] time] ([id number]) Comment: Result Comment: Recommended Anticoagulant Therapy: SEE BELOW ----- INR of 2.0 - 3.0 : - Prophylaxis of Venous Thro mbosis (high-risk surgery) - Treatment of Venous Thromb osis - Treatment of Pulmonary Emb olism (Includes tissue heart valves, Acute Myocardial Inf arction to prevent systemic embolism, Valvular Heart Dis ease, and Atrial Fibrillation) ----- INR of 2.5 - 3.5 : - Mechanical Prosthetic Valv es (high risk) - If oral anticoagulant ther apy is used to prevent Myocardial Infarction Performed By: #### INRPC ### # POINT OF CARE PT Coag (PPP) [Time] 16.2 9.0-12.0 s [facility] 9 [facility] ([id number]) Comment: Result Comment: . Performed By: #### INRPC ### # POINT OF CARE hemogram on 2019-02 Erythrocyte distribution 13.6 11.5-14.5 % Normal 02-19 [facility] width (RBC) [Ratio] ([id number]) Comment: Performed By: #### INRPC ### # POINT OF CARE Hematocrit (Bld) [Volume 38.0 35.0-47.0 % Normal 02-19 [facility] fraction] ([id number]) Comment: Performed By: #### INRPC ### # POINT OF CARE Hemoglobin (Bld) 13.1 11.7-16.0 g/dL Normal 02-19-2019 [facility] [Mass/Vol] ([id number]) Comment: Performed By: #### INRPC ### # POINT OF CARE MCH (RBC) [Entitic mass] 32.6 26.0-34.0 pg Normal 02-19 [facility] (69405) Comment: Performed By: #### INRPC ### # POINT OF CARE MCHC (RBC) [Mass/Vol] 34.5 32.0-36.0 % Normal 02-20-20 19 [facility] ([id number]) Comment: Performed By: #### INRPC ### # POINT OF CARE MCV (RBC) [Entitic vol] 94.5 79.0-98.0 fL Normal 2018 [facility] (72040) Comment: Performed By: #### INRPC ### # POINT OF CARE Platelet mean volume (Bld) 8.4 7.4-10.4 fL Normal [facility] [Entitic vol] ([id number] ) Comment: Performed By: #### INRPC ### # POINT OF CARE Platelets (Bld) [#/Vol] 216 140-440 10*3/uL Normal 2018 [facility] ([id number]) Comment: Performed By: #### INRPC ### # POINT OF CARE RBC (Bld) [#/Vol] 4.03 3.80-5.20 10*6/uL Normal 02-19-2019 [facility] ([id number]) Comment: Performed By: #### INRPC ### # POINT OF CARE WBC (Bld) [#/Vol] 7.5 3.6-10.7 10*3/uL Normal 02-19-2019 [facility] ([id number]) Comment: Performed By: #### INRPC ### # POINT OF CARE hemoglobin a1c on HbA1c (Bld) [Mass fraction] 5.6 4.0-5.7 % Normal [facility] (84674) Comment: Result Comment: --HgbA1C lev els may not be accurate in patients who have renal disease, received rece nt blood transfusions, are anemic, or who have dyshemoglobinemi a. Performed By: #### INRPC ### # POINT OF CARE HbA1c (Bld) [Mass fraction] 114 mg/dL Normal [facility] (08649) Comment: Performed By: #### INRPC ### # POINT OF CARE comp panel with mg reflex on 2019-02-19 ALP [Catalytic activity/Vol] 49 38-126 U/L Normal 0 02-19-2019 [facility] ([id number]) Comment: Performed By: #### INRPC ### # POINT OF CARE ALT [Catalytic activity/Vol] 22 13-69 U/L Normal 0 02-19-2019 [facility] ([id number]) Comment: Performed By: #### INRPC ### # POINT OF CARE Calcium [Mass/Vol] 10.1 8.4-10.4 mg/dL Normal 02-19-2019 [facility] (77590) Comment: Performed By: #### INRPC ### # POINT OF CARE Glucose [Mass/Vol] 109 70-100 mg/dL High 02-19-2019 [facility] ([id number]) Comment: Performed By: #### INRPC ### # POINT OF CARE Anion gap [Moles/Vol] 9 Normal 02-20-20 19 [facility] ([id number]) Comment: Performed By: #### INRPC ### # POINT OF CARE AST [Catalytic activity/Vol] 34 15-46 U/L Normal 0 02-19-2019 [facility] (91456) Comment: Result Comment: Slightly hem olysed, interpret with caution. Performed By: #### INRPC ### # POINT OF CARE Bilirubin [Mass/Vol] 0.6 0.2-1.3 mg/dL Normal [facility] (36575) Comment: Performed By: #### INRPC ### # POINT OF CARE CO2 [Moles/Vol] 23 22-30 mmol/L Normal 02-19-2019 [facility] (92062) Comment: Performed By: #### INRPC ### # POINT OF CARE Creatinine [Mass/Vol] 0.78 0.52-1.25 mg/dL Normal 02-20-20 [facility] ([id number]) Comment: Performed By: #### INRPC ### # POINT OF CARE GFR/1.73 sq M > 60.0 >60 mL/min/{1.73_m2} Normal 9 [facility] predicted among Syst em (17199) blacks MDRD (S/P/Bld) [Vol rate/Area] Comment: Performed By: #### INRPC ### # POINT OF CARE GFR/1.73 sq M > 60.0 >60 mL/min/{1.73_m2} Normal 9 [facility] predicted among Syst em (34644) non-blacks MDRD (S/P/Bld) [Vol rate/Area] Comment: Result Comment: Source- MDRD equation with creatinine calibration to IDMS(NKDEP) eGFR not recommended for kevin g dose adjustment Performed By: #### INRPC ### # POINT OF CARE Protein [Mass/Vol] 6.5 6.3-8.2 g/dL Normal 02-19-2019 [facility] ([id number]) Comment: Performed By: #### INRPC ### # POINT OF CARE Urea nitrogen [Mass/Vol] 11 7-20 mg/dL Normal 02-19 [facility] ([id number]) Comment: Performed By: #### INRPC ### # POINT OF CARE Potassium [Moles/Vol] 4.5 3.5-5.1 mmol/L Normal 02-20-20 [facility] (11107) Comment: Result Comment: Slightly hem olysed, interpret with caution. Performed By: #### INRPC ### # POINT OF CARE Sodium [Moles/Vol] 135 135-145 mmol/L Normal 02-19-2019 [facility] ([id number]) Comment: Performed By: #### INRPC ### # POINT OF CARE Albumin [Mass/Vol] 3.8 3.5-5.0 g/dL Normal 02-19-2019 [facility] ([id number]) Comment: Performed By: #### INRPC ### # POINT OF CARE Chloride [Moles/Vol] 103 98-107 mmol/L Normal 9 [facility] (53659) Comment: Performed By: #### INRPC ### # POINT OF CARE troponin i on 02-18 Troponin I.cardiac < 0.012 0.000-0.034 ng/mL Normal 9 [facility] [Mass/Vol] ([id number]) Comment: Result Comment: < 0.034 = ne gative 0.034 ? 0.120 = indeterminat e > 0.120 = positive Performed By: #### INRPC ### # POINT OF CARE Troponin I.cardiac < 0.012 0.000-0.034 ng/mL Normal 9 [facility] [Mass/Vol] ([id number]) Comment: Result Comment: < 0.034 = ne gative 0.034 ? 0.120 = indeterminat e > 0.120 = positive Performed By: #### INRPC ### # POINT OF CARE prothrombin time on 2019-02-18 INR Coag (PPP) [Relative 2.7 0.9-1.1 [facility] 02-18 [facility] time] ([id number]) Comment: Result Comment: Recommended Anticoagulant Therapy: SEE BELOW ----- INR of 2.0 - 3.0 : - Prophylaxis of Venous Thro mbosis (high-risk surgery) - Treatment of Venous Thromb osis - Treatment of Pulmonary Emb olism (Includes tissue heart valves, Acute Myocardial Inf arction to prevent systemic embolism, Valvular Heart Dis ease, and Atrial Fibrillation) ----- INR of 2.5 - 3.5 : - Mechanical Prosthetic Valv es (high risk) - If oral anticoagulant ther apy is used to prevent Myocardial Infarction Performed By: #### INRPC ### # POINT OF CARE PT Coag (PPP) [Time] 25.9 9.0-12.0 s High 9 [facility] ([id number]) Comment: Result Comment: . Performed By: #### INRPC ### # POINT OF CARE mri brain w/ + w/o contrast on 2019-02-18 MRI Brain w/ + w/o Patient Name: AKUA SAINZ Normal 02-18-2019 [facility] ([id number]) MRI Exam Date/Time 02/18/2019 15:40:06 EDT Exam MRI Brain w/ + w/o Contrast Ordering Physician LEANN ELISE MICHELE L Accession Number [id number] CPT4 Codes 48989 () Reason For Exam STROKE Report Examination: MRI brain with and without contrast Clinical Indication: Stroke like symptoms, difficulty ambulating, confusion Comparison: CT 02/17/2019 Findings: Multiplanar multisequence MRI was obtained through the skull prior to and after administration of 14 mL Multihance intravenous dyana olinium contrast. Sequences included diffusion-weighted, gradient an d FLAIR images. Ventricles are normal in size and configuration and are norm ally positioned on midline. There is mild diffuse cerebral volume loss. Basilar cisterns are patent. There is mild diffuse subcortic al and periventricular FLAIR and T2 signal hyperintensity. No intra cranial fluid collection or mass is identified. Review of the diffusion-weighted images demonstrate no evidence of acute i nfarct. No gross abnormality is appreciated within the globes and or bital contents. The paranasal sinuses are well pneumatized and dem onstrate no significant inflammation. Post gadolinium contrast-enhanced images demonstrate no evid ence of abnormal enhancement. Impression: 1. Mild diffuse cerebral volume loss and mild nonspecific wh ite matter changes likely mild chronic small vessel ischemic disease in a patient of this age. 2. No evidence of acute infarct or other acute intracranial abnormality. No abnormal gadolinium enhancement. Report Dictated on Workstation: [id number] Final Dictated: 02/18/2019 3:56 pm Dictating Physician: MD CARR ANTHONY J Signed Date and Time: 02/18/2019 4:02 pm Signed by: MD CARR ANTHONY J Transcribed Date and Time: 02/18/2019 3:56 mra neck w/ + w/o contrast on 2019-02-18 MRA Neck w/ + w/o Patient Name: AKUA SAINZ 02-18-2019 [facility] ([id number]) MRI Exam Date/Time 02/18/2019 15:40:06 EDT Exam MRA Neck w/ + w/o Contrast Ordering Physician LEANN ELISE MICHELE L Accession Number [id number] CPT4 Codes 06742 () Reason For Exam STROKE Report Examination: MRA neck Clinical Indication: Stroke like symptoms Comparison: None Findings: 2D and 3D time of flight and gadolinium bolus magnetic reson ance angiography was obtained through the neck. 14 mL of Multihan ce IV gadolinium contrast was administered. Maximal intensity proj ections were then reformatted. Examination includes review of the pr imary partitions and 3 dimensional views. NASCET criteria was util ized to evaluate stenosis. The carotid arteries demonstrate normal antegrade flow witho ut evidence of filling defect or stenosis. Zero percent stenosi s at the internal carotid artery origin. The vertebral arteries are n ormal in caliber, slightly left dominant and demonstrate no evidence of narrowing. No dissection is appreciated. Impression: No evidence of stenosis or other vascular abnormality of the carotid and vertebral arteries. Report Dictated on Workstation: [id number] Final Dictated: 02/18/2019 4:06 pm Dictating Physician: MD CARR ANTHONY J Signed Date and Time: 02/18/2019 4:07 pm Signed by: MD CARR ANTHONY J Transcribed Date and Time: 02/18/2019 4:06 mra head w/o contrast on 2019-02-18 MRA Head w/o Patient Name: AKUA SAINZ Normal 02-18-2019 [facility] ([id number]) MRI Exam Date/Time 02/18/2019 15:40:06 EDT Exam MRA Head w/o Contrast Ordering Physician LEANN ELISE MICHELE L Accession Number [id number] CPT4 Codes 37566 () Reason For Exam STROKE Report Examination: MRA head Clinical Indication: Stroke like symptoms Comparison: None Findings: 3D time of flight magnetic resonance angiography was obtaine d through the intracranial vessels. Maximal intensity projections were then reformatted. Examination includes review of the primary part itions and 3 dimensional views. NASCET criteria was utilized to measure degree of focal stenosis. The carotid arteries along their intracranial portion demons trate grossly normal flow. There is no evidence of filling defect, significant plaque or other abnormality. The anterior circul ation demonstrates grossly intact anterior and middle cerebral art eries. The [place] of [place] is within normal limits. The visualized vertebral and basilar arteries are normal in caliber without evidence of flow-limiting stenosis. Left dominant ve rtebral artery. The posterior cerebral arteries are well visualized. There is no evidence of vascular malformation or aneurysm fo rmation. Impression: No MRA evidence of gross intracranial stenosis, obstruction, or aneurysm. Report Dictated on Workstation: [id number] Final Dictated: 02/18/2019 4:02 pm Dictating Physician: MD CARR ANTHONY J Signed Date and Time: 02/18/2019 4:05 pm Signed by: MD CARR ANTHONY J Transcribed Date and Time: 02/18/2019 4:02 glucose,bedside on 2019-02-18 Glucose [Mass/Vol] 133 70-100 mg/dL High 02-18-2019 [facility] ([id number]) Comment: Result Comment: Test perform ed by glucose meter. Results may be 10%-15% lower than serum/plasma values. (C SHAJI ID [id number]) Performed By: #### INRPC ### # POINT OF CARE troponin i on 02-17 Troponin I.cardiac < 0.012 0.000-0.034 ng/mL Normal 9 [facility] [Mass/Vol] ([id number]) Comment: Result Comment: < 0.034 = ne gative 0.034 ? 0.120 = indeterminat e > 0.120 = positive Performed By: #### INRPC ### # POINT OF CARE Troponin I.cardiac < 0.012 0.000-0.034 ng/mL Normal 9 [facility] [Mass/Vol] ([id number]) Comment: Result Comment: < 0.034 = ne gative 0.034 ? 0.120 = indeterminat e > 0.120 = positive Performed By: #### INRPC ### # POINT OF CARE protime and aptt on 2019-02-17 INR Coag (PPP) [Relative 3.2 0.9-1.1 High 02-17 [facility] time] ([id number]) Comment: Result Comment: Recommended Anticoagulant Therapy: SEE BELOW ----- INR of 2.0 - 3.0 : - Prophylaxis of Venous Thro mbosis (high-risk surgery) - Treatment of Venous Thromb osis - Treatment of Pulmonary Emb olism (Includes tissue heart valves, Acute Myocardial Inf arction to prevent systemic embolism, Valvular Heart Dis ease, and Atrial Fibrillation) ----- INR of 2.5 - 3.5 : - Mechanical Prosthetic Valv es (high risk) - If oral anticoagulant ther apy is used to prevent Myocardial Infarction Performed By: #### HEMDF, BM P3, LFT3, PT/AP, TROPN, LIPD2 #### [facility] [address], [place] PT Coag (PPP) [Time] 30.3 9.0-12.0 s High 9 [facility] ([id number]) Comment: Result Comment: . Performed By: #### HEMDF, BM P3, LFT3, PT/AP, TROPN, LIPD2 #### [place] [address] [address], [place] aPTT Coag (Bld) [Time] 35.2 20.0-30.5 s High 019 [facility] (73279) Comment: Result Comment: NOTE: The th erapeutic time for Heparin anticoagulation, based on Xa activity inhibit ion, is an APTT of 46-80 seconds. Performed By: #### HEMDF, BM P3, LFT3, PT/AP, TROPN, LIPD2 #### [place] [address] [place] [address] lipid panel on 2018 Cholesterol in HDL 49 40-60 mg/dL Normal 02-17-2019 [facility] [Mass/Vol] ([id number]) Comment: Performed By: #### INRPC ### # POINT OF CARE Cholesterol.total/Cholesterol in HDL [Mass 4 Normal 02-17-2019 [facility] ratio] ([id number]) Comment: Result Comment: Ref Range: < 3 Low Risk for CHD 3-6 Mod Risk for CHD > 6 High Risk for CHD Performed By: #### INRPC ### # POINT OF CARE Protein [Mass/Vol] 107 <100 mg/dL Abnormal 02-17-2019 [facility] ([id number]) Comment: Performed By: #### INRPC ### # POINT OF CARE Triglyceride [Mass/Vol] 142 <150 mg/dL Normal 2018 [facility] (58592) Comment: Performed By: #### INRPC ### # POINT OF CARE Cholesterol [Mass/Vol] 184 < 200 mg/dL Normal 019 [facility] ([id number]) Comment: Performed By: #### INRPC ### # POINT OF CARE hepatic function on 2019-02-17 ALP [Catalytic activity/Vol] 62 38-126 U/L Normal 0 02-17-2019 [facility] (82576) Comment: Performed By: #### HEMDF, BM P3, LFT3, PT/AP, TROPN, LIPD2 #### [place] [address] [address], [place] ALT [Catalytic activity/Vol] 24 13-69 U/L Normal 0 02-17-2019 [facility] (84504) Comment: Performed By: #### HEMDF, BM P3, LFT3, PT/AP, TROPN, LIPD2 #### [place] [address] [address] [place], [place] AST [Catalytic activity/Vol] 29 15-46 U/L Normal 0 02-17-2019 [facility] (77836) Comment: Performed By: #### HEMDF, BM P3, LFT3, PT/AP, TROPN, LIPD2 #### [place] [address] [address] [place], [place] Bilirubin [Mass/Vol] 0.4 0.2-1.3 mg/dL Normal 9 [facility] (10668) Comment: Performed By: #### HEMDF, BM P3, LFT3, PT/AP, TROPN, LIPD2 #### [place] [address] [address] [place], [place] Protein [Mass/Vol] 7.2 6.3-8.2 g/dL Normal 02-17-2019 [facility] (83593) Comment: Performed By: #### HEMDF, BM P3, LFT3, PT/AP, TROPN, LIPD2 #### [place] [address] [place], [place] Bilirubin.direct [Mass/Vol] 0.0 0.0-0.3 mg/dL Normal [facility] (56234) Comment: Performed By: #### HEMDF, BM P3, LFT3, PT/AP, TROPN, LIPD2 #### [place] [address] [address] [place], [place] Albumin [Mass/Vol] 4.0 3.5-5.0 g/dL Normal 02-17-2019 [facility] (02112) Comment: Performed By: #### HEMDF, BM P3, LFT3, PT/AP, TROPN, LIPD2 #### [address] hemogram w/ autodiff on 2019-02-17 Abs Baso Cnt 0.0 0.0-0.2 10*3/uL Normal 02-17-2019 [facility] ([id number]) Comment: Performed By: #### HEMDF, BM P3, LFT3, PT/AP, TROPN, LIPD2 #### [place] [address] [address] [place], [place] Abs Neutrophile Cnt 2.9 1.8-7.0 10*3/uL Normal 02-17-2019 [facility] (57423) Comment: Performed By: #### HEMDF, BM P3, LFT3, PT/AP, TROPN, LIPD2 #### [place] [address] [place], [place] Basophils/100 WBC (Bld) 0.5 0.0-2.0 % Normal 2018 [facility] ([id number]) Comment: Performed By: #### HEMDF, BM P3, LFT3, PT/AP, TROPN, LIPD2 #### [address] Eosinophils (Bld) [#/Vol] 0.1 0.0-0.5 10*3/uL Normal [facility] (29685) Comment: Performed By: #### HEMDF, BM P3, LFT3, PT/AP, TROPN, LIPD2 #### [place] [address] [address] [place], [place] Eosinophils/100 WBC (Bld) 1.5 1.0-6.0 % Normal [facility] (38882) Comment: Performed By: #### HEMDF, BM P3, LFT3, PT/AP, TROPN, LIPD2 #### [address] Erythrocyte distribution 13.7 11.5-14.5 % Normal 02-17 [facility] width (RBC) [Ratio] ([id number]) Comment: Performed By: #### HEMDF, BM P3, LFT3, PT/AP, TROPN, LIPD2 #### [address] Granulocytes/100 WBC (Bld) 53.4 40.0-80.0 % Normal [facility] (30796) Comment: Performed By: #### HEMDF, BM P3, LFT3, PT/AP, TROPN, LIPD2 #### [place] [address] [address] [place], [place] Hematocrit (Bld) [Volume 38.2 35.0-47.0 % Normal 02-17 [facility] fraction] ([id number]) Comment: Performed By: #### HEMDF, BM P3, LFT3, PT/AP, TROPN, LIPD2 #### [address] [address] [place], [place] Hemoglobin (Bld) 13.1 11.7-16.0 g/dL Normal 02-17-2019 [facility] [Mass/Vol] (78108) Comment: Performed By: #### HEMDF, BM P3, LFT3, PT/AP, TROPN, LIPD2 #### [address] Lymphocytes (Bld) [#/Vol] 1.9 1.0-4.3 10*3/uL Normal [facility] (27293) Comment: Performed By: #### HEMDF, BM P3, LFT3, PT/AP, TROPN, LIPD2 #### [address] [address] [address] [place], [place] Lymphocytes/100 WBC (Bld) 36.2 20.0-40.0 % Normal [facility] (34022) Comment: Performed By: #### HEMDF, BM P3, LFT3, PT/AP, TROPN, LIPD2 #### [address] [address] [address] [place], [place] MCH (RBC) [Entitic mass] 32.6 26.0-34.0 pg Normal 02-17 [facility] (81450) Comment: Performed By: #### HEMDF, BM P3, LFT3, PT/AP, TROPN, LIPD2 #### [address] [place], [place] MCHC (RBC) [Mass/Vol] 34.3 32.0-36.0 % Normal 02-18-20 [facility] (33767) Comment: Performed By: #### HEMDF, BM P3, LFT3, PT/AP, TROPN, LIPD2 #### [address] [address] [address] [place] MCV (RBC) [Entitic vol] 95.1 79.0-98.0 fL Normal 2018 [facility] (35074) Comment: Performed By: #### HEMDF, BM P3, LFT3, PT/AP, TROPN, LIPD2 #### [address] [address] [address] [place], [place] Monocytes (Bld) [#/Vol] 0.4 0.0-0.8 10*3/uL Normal 2018 [facility] (63988) Comment: Performed By: #### HEMDF, BM P3, LFT3, PT/AP, TROPN, LIPD2 #### [address] Monocytes/100 WBC (Bld) 8.4 2.0-10.0 % Normal 2018 [facility] (17222) Comment: Performed By: #### HEMDF, BM P3, LFT3, PT/AP, TROPN, LIPD2 #### [facility] [address] [place], [place] Platelet mean volume (Bld) 7.9 7.4-10.4 fL Normal [facility] [Entitic vol] (36650 ) Comment: Performed By: #### HEMDF, BM P3, LFT3, PT/AP, TROPN, LIPD2 #### [facility] [address] [place], [place] Platelets (Bld) [#/Vol] 199 140-440 10*3/uL Normal 2018 [facility] (42044) Comment: Performed By: #### HEMDF, BM P3, LFT3, PT/AP, TROPN, LIPD2 #### [address] [address] [address] [place] RBC (Bld) [#/Vol] 4.01 3.80-5.20 10*6/uL Normal 02-17-2019 [facility] (61172) Comment: Performed By: #### HEMDF, BM P3, LFT3, PT/AP, TROPN, LIPD2 #### [address] [address] [address] [place] WBC (Bld) [#/Vol] 5.4 3.6-10.7 10*3/uL Normal 02-17-2019 [facility] (76679) Comment: Performed By: #### HEMDF, BM P3, LFT3, PT/AP, TROPN, LIPD2 #### [facility] [address] [place], [place] ct head or brain w/o contrast on 2019-02-17 CT Head or Brain w/o Patient Name: AKUA SAINZ Normal 02-17-2019 [facility] Contrast System (60476) CT Exam Date/Time 02/17/2019 17:29:[address] Head or Brain w/o Contrast Ordering Physician [id number] DUMONT Accession Number [id number] CPT4 Codes 04102 () Reason For Exam feeling wobbly/off balance, + headache Report CT BRAIN WITHOUT CONTRAST CLINICAL INDICATION: feeling wobbly/off balance, + headache TECHNIQUE: CT scan of the brain without IV contrast. Multipl ricarda reformations. COMPARISON: None. FINDINGS: No apparent mass or mass effect, hemorrhage, midline shift o r hydrocephalus. No evidence of acute cortical infarct. No abn ormal, extra-axial fluid or air collection. Age-related volume loss . Osseous calvarium grossly intact. IMPRESSION: 1. No acute intracranial findings. Report Dictated on Final Dictated: 02/17/2019 5:59 pm Dictating Physician: MD MILIAN WENDELL Signed Date and Time: 02/17/2019 6:01 pm Signed by: MD MILIAN WENDELL Transcribed Date and Time: 02/17/2019 5:59 cr chest portable o n 2019-02-17 CR Chest Portable Patient Name: AKUA SAINZ 02-17-2019 [facility] ([id number] ) Diagnostic Radiology Exam Date/Time 02/17/2019 17:29:57 EDT Exam CR Chest Portable Ordering Physician MD MYRON, SIOMARA Casey Accession Number [id number] CPT4 Codes 08038 () Reason For Exam shortness of breath Report CHEST PORTABLE CLINICAL INDICATION: shortness of breath TECHNIQUE: Single, portable chest x-ray. COMPARISON: January,. FINDINGS: Cardiac and mediastinal silhouette within normal limits. Lungs are grossly clear. No significant vascular congestion. No apparent pleural effusion or pneumothorax. Bony thorax grossly unremarkable. IMPRESSION: 1. No acute findings. Report Dictated on Final Dictated: 02/17/2019 7:20 pm Dictating Physician: MD MILIAN WENDELL Signed Date and Time: 02/17/2019 7:21 pm Signed by: MD MILIAN WENDELL Transcribed Date and Time: 02/17/2019 7:20 complete urinalysis on 2019-02-17 Appearance (U) Clear Normal 02-17-2019 [facility] (04374) Comment: Result Comment: Reference Ra nge: Clear Performed By: #### INRPC ### # POINT OF CARE Bilirubin,Urine Negative Normal 02-17-2019 [facility] (28201) Comment: Result Comment: Reference Ra nge: Negative Performed By: #### INRPC ### # POINT OF CARE Color (U) Colorless Normal 02-17-2019 [facility] (84081) Comment: Result Comment: Reference Ra nge: Lt. Yellow Performed By: #### INRPC ### # POINT OF CARE Glucose Ql (U) Normal Normal 02-17-2019 [facility] (31394) Comment: Result Comment: Reference Ra nge: Normal (<70) Performed By: #### INRPC ### # POINT OF CARE Ketone,Urine Negative Normal 02-17-2019 [facility] (09956) Comment: Result Comment: Reference Ra nge: Negative Performed By: #### INRPC ### # POINT OF CARE Leukocytes,Urine Negative Normal 02-17-2019 [facility] (60400) Comment: Result Comment: Reference Ra nge: Negative Performed By: #### INRPC ### # POINT OF CARE Nitrites,Urine Negative Normal 02-17-2019 [facility] (11130) Comment: Result Comment: Reference Ra nge: Negative Performed By: #### INRPC ### # POINT OF CARE Occult Blood,Urine Negative Normal 02-17-2019 [facility] (33866) Comment: Result Comment: Reference Ra nge: Negative Performed By: #### INRPC ### # POINT OF CARE pH (U) 7.5 5.0-8.0 Normal 02-17-2019 [facility] (67779) Comment: Performed By: #### INRPC ### # POINT OF CARE Protein (U) [Mass/Vol] Negative mg/dL Normal 019 [facility] (78230) Comment: Result Comment: Reference Ra nge: Negative Performed By: #### INRPC ### # POINT OF CARE Specific Dell,Urine < 1.005 1.005-1.030 Normal 02-17 [facility] (47507) Comment: Performed By: #### INRPC ### # POINT OF CARE Urobilinogen,Urine Normal Normal 02-17-2019 [facility] (44277) Comment: Result Comment: Reference Ra nge: Normal (0-1) Performed By: #### INRPC ### # POINT OF CARE basic metabolic panel on 2019-02-17 Calcium [Mass/Vol] 10.1 8.4-10.4 mg/dL Normal 02-17-2019 [facility] (78497) Comment: Performed By: #### HEMDF, BM P3, LFT3, PT/AP, TROPN, LIPD2 #### [facility] [address] [place], [place] Glucose [Mass/Vol] 85 70-100 mg/dL Normal 02-17-2019 [facility] (41314) Comment: Performed By: #### HEMDF, BM P3, LFT3, PT/AP, TROPN, LIPD2 #### [address] [address] [address] [place], [place] Urea nitrogen [Mass/Vol] 9 7-20 mg/dL Normal 02-17 [facility] (20173) Comment: Performed By: #### HEMDF, BM P3, LFT3, PT/AP, TROPN, LIPD2 #### [address] [address] [address] [place] Anion gap [Moles/Vol] 6 Normal 02-18-20 [facility] (63998) Comment: Performed By: #### HEMDF, BM P3, LFT3, PT/AP, TROPN, LIPD2 #### [address] [address] [address] [place] CO2 [Moles/Vol] 30 22-30 mmol/L Normal 02-17-2019 [facility] (26827) Comment: Performed By: #### HEMDF, BM P3, LFT3, PT/AP, TROPN, LIPD2 #### [address] [address] [address] [place] Creatinine [Mass/Vol] 0.76 0.52-1.25 mg/dL Normal 02-18-20 [facility] (80749) Comment: Performed By: #### HEMDF, BM P3, LFT3, PT/AP, TROPN, LIPD2 #### [address] [address] [place] [address] GFR/1.73 sq M > 60.0 >60 mL/min/{1.73_m2} Normal 9 [facility] predicted among Syst em (97441) blacks MDRD (S/P/Bld) [Vol rate/Area] Comment: Performed By: #### HEMDF, BM P3, LFT3, PT/AP, TROPN, LIPD2 #### [address] [address] [place] [address] GFR/1.73 sq M > 60.0 >60 mL/min/{1.73_m2} Normal 9 [facility] Health predicted among Syst em (39097) non-blacks MDRD (S/P/Bld) [Vol rate/Area] Comment: Result Comment: Source- MDRD equation with creatinine calibration to IDMS(NKDEP) eGFR not recommended for kevin g dose adjustment Performed By: #### HEMDF, BM P3, LFT3, PT/AP, TROPN, LIPD2 #### [address] [address] [address] [place] Chloride [Moles/Vol] 103 98-107 mmol/L Normal 9 [facility] (63772) Comment: Performed By: #### HEMDF, BM P3, LFT3, PT/AP, TROPN, LIPD2 #### [address] [address] [address] [place] Potassium [Moles/Vol] 4.2 3.5-5.1 mmol/L Normal 02-18-20 19 [facility] (57327) Comment: Performed By: #### HEMDF, BM P3, LFT3, PT/AP, TROPN, LIPD2 #### [address] [address] [place] Sodium [Moles/Vol] 139 135-145 mmol/L Normal 02-17-2019 [facility] (34764) Comment: Performed By: #### HEMDF, BM P3, LFT3, PT/AP, TROPN, LIPD2 #### [address] [address] [address] [place] add on test from his on 2019-02-17 Add on test from HIS Accepted Normal 9 [facility] (47750) Comment: Result Comment: Specimen mick ilable & acceptable for analysis. Performed By: #### INRPC ### # POINT OF CARE inr, poc on 2019-01 INR Coag (Bld) [Relative 2.6 0.9-1.1 High 02-03 [facility] time] ([id number]) Comment: Result Comment: Performed by [employer] [facility] CLIA ID: [id number] [place], [place] Recommended Anticoagulant Th erapy: See Below ----- INR of 2.0 - 3.0: - Prophylaxis of Venous Thro mbosis (high-risk surgery) - Treatment of Venous Thromb osis - Treatment of Pulmonary Emb olism (includes tissue heart valves, Acute Myocardial Inf arction to prevent systemic embolism, Valvular Heart Dis ease, and Atrial Fibrillation) ----- INR of 2.5 - 3.5: - Mechanical Prosthetic Valv es (high risk) - If oral anticoagulant ther apy is used to prevent Myocardial Infarction Performed By: #### INRPC ### # POINT OF CARE inr, poc on 2019-01 INR Coag (Bld) [Relative 2.0 0.9-1.1 High 01-13 [facility] time] (97192) Comment: Result Comment: Performed by [employer] [facility] CLIA ID: [id number] [place], [place] Recommended Anticoagulant Th erapy: See Below ----- INR of 2.0 - 3.0: - Prophylaxis of Venous Thro mbosis (high-risk surgery) - Treatment of Venous Thromb osis - Treatment of Pulmonary Emb olism (includes tissue heart valves, Acute Myocardial Inf arction to prevent systemic embolism, Valvular Heart Dis ease, and Atrial Fibrillation) ----- INR of 2.5 - 3.5: - Mechanical Prosthetic Valv es (high risk) - If oral anticoagulant ther apy is used to prevent Myocardial Infarction Performed By: #### INRPC ### # POINT OF CARE inr, poc on 2018-12 INR Coag (Bld) [Relative 3.4 0.9-1.1 High 12-26 [facility] time] ([id number]) Comment: Result Comment: Performed by [employer] [facility] CLIA ID: [id number] [place] Recommended Anticoagulant Th erapy: See Below ----- INR of 2.0 - 3.0: - Prophylaxis of Venous Thro mbosis (high-risk surgery) - Treatment of Venous Thromb osis - Treatment of Pulmonary Emb olism (includes tissue heart valves, Acute Myocardial Inf arction to prevent systemic embolism, Valvular Heart Dis ease, and Atrial Fibrillation) ----- INR of 2.5 - 3.5: - Mechanical Prosthetic Valv es (high risk) - If oral anticoagulant ther apy is used to prevent Myocardial Infarction Performed By: #### INRPC ### # POINT OF CARE inr, poc on 2018-11 INR Coag (Bld) [Relative 1.7 0.9-1.1 [facility] 12-09 [facility] time] ([id number]) Comment: Result Comment: Performed by [employer] [facility] CLIA ID: [id number] [place], [place] Recommended Anticoagulant Th erapy: See Below ----- INR of 2.0 - 3.0: - Prophylaxis of Venous Thro mbosis (high-risk surgery) - Treatment of Venous Thromb osis - Treatment of Pulmonary Emb olism (includes tissue heart valves, Acute Myocardial Inf arction to prevent systemic embolism, Valvular Heart Dis ease, and Atrial Fibrillation) ----- INR of 2.5 - 3.5: - Mechanical Prosthetic Valv es (high risk) - If oral anticoagulant ther apy is used to prevent Myocardial Infarction Performed By: #### INRPC ### # POINT OF CARE inr, poc on 2018-11 INR Coag (Bld) [Relative 1.9 0.9-1.1 [facility] 11-25 [facility] time] ([id number]) Comment: Result Comment: Performed by [employer] [facility] CLIA ID: [id number] [place] Recommended Anticoagulant Th erapy: See Below ----- INR of 2.0 - 3.0: - Prophylaxis of Venous Thro mbosis (high-risk surgery) - Treatment of Venous Thromb osis - Treatment of Pulmonary Emb olism (includes tissue heart valves, Acute Myocardial Inf arction to prevent systemic embolism, Valvular Heart Dis ease, and Atrial Fibrillation) ----- INR of 2.5 - 3.5: - Mechanical Prosthetic Valv es (high risk) - If oral anticoagulant ther apy is used to prevent Myocardial Infarction Performed By: #### INRPC ### # POINT OF CARE inr, poc on 2018-11 INR Coag (Bld) [Relative 1.4 0.9-1.1 High 11-11 [facility] time] ([id number]) Comment: Result Comment: Performed by [employer] [facility] CLIA ID: [id number] [place] Recommended Anticoagulant Th erapy: See Below ----- INR of 2.0 - 3.0: - Prophylaxis of Venous Thro mbosis (high-risk surgery) - Treatment of Venous Thromb osis - Treatment of Pulmonary Emb olism (includes tissue heart valves, Acute Myocardial Inf arction to prevent systemic embolism, Valvular Heart Dis ease, and Atrial Fibrillation) ----- INR of 2.5 - 3.5: - Mechanical Prosthetic Valv es (high risk) - If oral anticoagulant ther apy is used to prevent Myocardial Infarction Performed By: #### INRPC ### # POINT OF CARE mg breast tomosynthesis scr bl on 2018-05-20 MG Breast Patient Name: Bernard SAINZ 018 [facility] Tomosynthesis Scr Bl AKUA Alfonso FIN: System ([id number]) [id number] Mammography Exam Date/Time 05/20/2018 15:25:00 EDT Exam MG Breast Tomosynthesis BI Scr Ordering Physician WOOD VU Accession Number [id number] CPT4 Codes 84026 (MG Breast Tomosynthesis Scr Bl), 42762 (MG MAMMO 2D SCREENING) Reason For Exam screening Report PATIENT HISTORY: Patient is postmenopausal. No known family history of cancer. Benign stereotactic AINSLEY of the right breast. Took estrogen for 3 years. Patient has never smoked. Patient's BMI is 25.0. REASON FOR EXAM: screening, asymptomatic. PROCEDURE: MG BREAST TOMOSYNTHESIS BL SCR: MAY 20, 2018 - 2D/3D Procedure 3D Bilateral CC and MLO view(s) were taken. 2D Bilateral CC and MLO view(s) were taken. Prior study comparison: February 04, 2015, bilateral screening mammogram, performed at [facility]. TISSUE DENSITY: There are scattered fibroglandular densities. 2D digital mammography and tomosynthesis imaging were performed and reviewed with CAD. ASSESSMENT: Category 1 Negative No mammographic evidence of malignancy. RECOMMENDATION: Routine screening mammogram of both breasts in 1 year. . Report Dictated on Cancer Risk Assessment: This risk assessment is based on patient provided information collected in a risk survey taken at the time of this examination. Lifetime breast cancer risk: 4.9% - If greater than or equal to 20%, consider annual mammogram and annual screening Breast MRI or follow up in high risk clinic. Is the patient at elevated risk based on the HBOC criteria? No (Hereditary Breast and Ovarian Cancer) - If yes, consider genetic counseling and testing with high risk follow up. HNPCC mutation risk (Ribeiro Syndrome): 1% - if greater than or equal to 5%, consider genetic counseling, testing and screening colonoscopy. Final Signed Date and Time: 05/20/2018 5:03 pm Signed by: MD DELGADO LAURA poc inr on INR Coag RelTime (Bld) 1.1 {INR} Normal 017 [facility] ([id number]) Comment: Performed By: #### [id number] ####[facility] [id number] [id number] Medical Director: Lance Sampson MD operative report on 2017-06-18 Operative CD:[id number]dDhKJnpYt1di2mtLM32cj5xScMpL iA/Fmm4FHNZX3IABSLbhMQxqVVQTBCDNKTtPc7yB1bfHf8bLZZPCCpADN7SJOWqMYFAeZQiV6LxA0XCH xYogVX7eAywM7u6dc08Sq9bdfjlQNRovBg4mWfdF1FF Normal 06-18-2017 [facility] YC81jABaoMXqc4EdiHS3NlB1FYE+UqcckB0aWNqmbU4qCXOitSLbDz7hl3m1ExpzJn9sVe8jQJr8P9jt oO1eWnZ1uErhvqxwMP0rBXfjSQ0oT9PoK5PfQF68KKMgn52sQgp9qJCyNY93gEu5fII+DZ34cQBaBF2Z UO0pdRRuqOC7vU4veEZcxe9tQD9PRI3Sd57lDWJxHvv General xMvEsi513DB62UMUJKX1yHBNuEg4XAL2rGCXaJom3To4ehQ5EOGQmaoKvvRrzPV4rNj5hkY1zVO5poMu 5IVAmyO3wKMzbeaymhSiiYb3sgS7kxShqVeE0tNL8Su3UEDKzrjDvoNDihw1qWCVaNJN4mG5fEZOcllV cyjLomEYgdCJkZBHbqdZxrxTapsUhhRU0rADoKMJlpE Health 21SRWvADMsFEO4x7EgqCtiheXgILI3NynXLM2DELB9UeK4GJNrTAkaSJJgD1RSRgBOFrNwFQa0Io12Sq FmCLJ9VtQxJyJHCGC6JfrIOiI8JnAmnCbxES4lcAJlFPjjHvisBYE8AbZ+RGJzDQ6vZ8dqv4Q8EdXci2 GciLjldzEzb0ByVRczIipohQReKWB5gGclXZBct358R Center FofjGjcfQtiNh8uWOgksGT3yU8xNQVzhxE6xL3rQwD1rxHowcpavzG4Us4LzcPzE9Z6bD0kULApkyLEq UGdOHW2QI4hvZZkOkfau1Vkka4ZAZGfmkUveQZzxh1qFHXobxZlnOF8zLWrICBeqZ01DDPeJUFbATA1A bLmVfwaCKUmfkrtdLxuAN9prZ6mQEInP5j6LbKuCP1f (98911) [file] XY+Lvc6P7WtQVd+CjwvaHRtbD4= Vital Signs Vital Sign Description Value / Unit Date Location The following section is limited to 5 en tries per type and includes entries from the following time range: 20190626 - 20190613 2. BMI (Body Mass Index) 24.42 kg/m2 06-25-2019 [place] ([address]) Body Temperature 97.81 [degF] 06-26-2019 [place] ([address]) Body weight 68.63 kg 06-25-2019 [place] ([address]) BP Diastolic 77 mm[Hg] 06-26-2019 [place] ([address]) BP Systolic 113 mm[Hg] 06-26-2019 [place] ([address]) Pulse (Heart Rate) 57 /min 06-26-2019 [place] ([address]) Pulse Oximetry 97 % 06-26-2019 [place] ([address]) Respiratory Rate 14 /min 06-26-2019 [facility] [place] ([address]) Encounters Date Type Reason Provider Location 06-18-2017 - Ambulatory [facility] Facility:B 06-19-2017 06-24-2019 - Emergency department Chest pain Siomara Chikis Camren JONES CDU 06-26-2019 patient visit Antwon Kearney Chikis Moralesh Antwon Estevan Antwon Comment: Chest pain, rule out acute m yocardial infarction (Primary Dx) 05-20-2018 Patient encounter Encounter for Wood Rodriguezn Loyd valarie [facility] screening [facility] (20766) mammogram for Woodgino Rodriguezn malignant neoplasm of breast 10-10-2019 - Subsequent Willie JONES [place] Ci ty 10-10-2019 hospital visit by Dept physician 07-02-2019 - Subsequent Chest discomfort Camden Samson [facility] 95 A [facility] 07-02-2019 hospital visit by X-RAY physician Comment: Chest discomfort Abnormal electrocardiogram ( ECG) (EKG) ; Persistent atrial fibrillati on Procedures Procedure Name Date Provider Location ROUTINE EKG TREADMILL STRESS 07-02-2019 Camden Samson [place], [place] TEST ([address]) Radiologic exam chest 2 views 07-02-2019 [place] ([address]) Ecg routine ecg w/least 12 lds 06-25-2019 Nakia [place] w/i&r ([address]) Assay of troponin quantitative 06-25-2019 [place] ([address]) Assay of troponin quantitative 06-25-2019 [place] ([address]) Assay of lipase 06-24-2019 [place] ([address]) Assay of magnesium 06-24-2019 [place] ([address]) Assay of troponin quantitative 06-24-2019 [place] ([address]) Blood count complete auto&auto 06-24-2019 Chele [place] difrntl wbc ([address]) Comprehensive metabolic panel 06-24-2019 [place] ([address]) Natriuretic peptide 06-24-2019 [place] ([address]) Radiologic exam chest single 06-24-2019 Chele Martines [place] view ([address]) Ecg routine ecg w/least 12 lds 06-24-2019 Chele [place] w/i&r ([address]21) Plan of Treatment Plan Description Date Location Creatinine monitoring Creatinine monitoring 08-18-2020 [place] ([address]) Potassium monitoring Potassium monitoring 08-18-2020 [place] ([address]) Creatinine monitoring Creatinine monitoring 06-24-2020 [place], [place] 06-24-2020 ([address]) Potassium monitoring Potassium monitoring 06-24-2020 [place] 06-24-2020 ([address]) Lipid screen Lipid screen 05-21-2020 - [place] 05-21-2020 ([address]) Breast cancer screen Breast cancer screen 05-20-2020 [place] 05-20-2020 ([address]) Creatinine monitoring Creatinine monitoring 04-27-2020 [place], [place] ([address]) Potassium monitoring Potassium monitoring 04-27-2020 [place] ([address]) Anti-coag visit 04/09/2020 Anti-coag 04-09-2020 - [facility]acy 04-09-2020 [facility] Anti-coag visit 10/03/2019 Anti-coag 10-03-2019 - [facility] visit Pharmacy 10-03-2019 [facility] Office Visit 07/29/2019 Office Visit 07-29-2019 [facility] [place], 07-29-2019 Alma Rosa Santiago PA-C [address], [place] [id number] Office Visit 07/01/2019 Office Visit 07-01-2019 - [facility] [place], 07-01-2019 Camden Reddy MD [address] [place] [address] [phone] Annual Wellness Visit Annual Wellness Visit 01-30-2019 - [place] (AWV) (AWV) 01-30-2019 (80206) Shingles Vaccine (2 of Shingles Vaccine (2 of 10-08-2011 - [place] 3) 3) 10-08-2011 (15459) DEXA (modify frequency DEXA (modify frequency 2010 - [place] per FRAX score) per FRAX score) 2010 ([address]07) Pneumococcal 65+ years Pneumococcal 65+ years 2010 - [place] Vaccine (2 of 2 - Vaccine (2 of 2 - 2010 (53734) PPSV23) PPSV23) Colon cancer screen Colon cancer screen 11-05-1995 - [place] colonoscopy colonoscopy 11-05-1995 (18941) DTaP/Tdap/Td vaccine (1 DTaP/Tdap/Td vaccine (1 1956 - [place] - Tdap) - Tdap) 1956 ([address]855) Hepatitis C screen Hepatitis C screen 1945 - [place], [place] 1945 ([address]) EKG 12 lead [place] ([address]) Comment: As Needed until discontinued starting 06/25/2019 Holter Monitor 24 Hour Holter Monitor 24 Hour 07-02-2019 [place] Cardiac Services Routine ([address]) Persistent atrial fibrillation 1 Occurrences starting 07/02/2019 until 07/02/2019 Comment: 1 Occurrences starting 07/02 until 07/02/2019 Initiate Oxygen Therapy Initiate Oxygen Therapy [place], [place] Protocol Protocol Respiratory Care (61370 ) Routine Daily until discontinued starting 06/25/2019 Comment: Daily until discontinued sta rting 06/25/2019 Payers Payer Name Policy Number Location [facility] ([id number]) [employer] xxxxxxxxxxx [place] ([address]) [id number] [facility] ([id number]) The following information is from the original human readable contentNo Payer Records FoundNo Payer Records FoundNo Payer Records Found Social History Type Social History Date Location Description Tobacco smoking status Former smoker 06-25-2019 - [place] NHIS 08-18-2019 ([address]759) History of tobacco use Current smoker 08-23-1964 - [place], [place] 08-13-1969 ([address]) Alcohol intake Ex-drinker (finding) 06-25-2019 - [place] 08-18-2019 ([address]) Sex Assigned [place] ([address]) Cigarettes smoked 08-18-2019 - [place] current (pack per day) 08-18-2019 (26835) - Reported History SDOH Alcohol 2 07-23-2019 [place] Frequency ([address]) Alcohol Comment Last drinking 07-23-2019 [place] 07/10/2019, once a (59508) month, no hx EtOH, never attended AA program The following information is from the original human readable contentNo Social History Records FoundNo Social History Records FoundNo Social History Records FoundNo Social History Records FoundNo Social History Records Found Summary Purpose Family History No Family History Records FoundNo Family History Records FoundNo Family History Records Found Advance Directives No Advanced Directives Records Found Documents on File Type Date Recorded Patient Assembly Line Worker Explanati on Advance Directives and Living Will Power of Web Marketing Manager Latest Code Status on File Code Status Date Activated Date Inactivated Comments Full Code 06/25/2019 1:46 AM Full Code 04/26/2019 1:04 PM 04/27/2019 4:31 PM Full Code 04/26/2019 10:41 AM 04/26/2019 1:04 PM Full Code 04/26/2019 3:34 AM 04/26/2019 10:41 AM Full Code 02/26/2019 4:20 PM 02/27/2019 4:17 PM Latest Code Status on File Code Status Date Activated Date Inactivated Comments Full Code 06/25/2019 1:46 AM 06/26/2019 3:03 PM Documents on File Type Date Recorded Patient Assembly Line Worker Explanati on Advance Directives and Living Will Power of Web Marketing Manager Latest Code Status on File Code Status Date Activated Date Inactivated Comments Full Code 06/25/2019 1:46 AM 06/26/2019 3:03 PM Full Code 04/26/2019 1:04 PM 04/27/2019 4:31 PM Full Code 04/26/2019 10:41 AM 04/26/2019 1:04 PM Full Code 04/26/2019 3:34 AM 04/26/2019 10:41 AM Full Code 02/26/2019 4:20 PM 02/27/2019 4:17 PM Discharge Instructions Discharge Instr - Brea Rivas APRN - CNP - 06/26/2019 10:31 AM EST As tolerated Discharge Instr - Brea Xavier APRN - CNP - 06/26/2019 10:31 AM EST? Good nutrition is important when healing from an illness, injury, or surgery. Follow any nutritionrecommendations given to you during your hospital stay. ? If you were given an oral nutrition supplement while in the hospital, continue to take this supplement at home. You can take it with meals, in-between meals, and/or before bedtime. These supplements can be purchased at most local grocery stores, pharmacies, and chain [employer]-stores. ? If you have any questions about your diet or nutrition, call the hospital and ask for the dietitian. General, low sodium, low cholesterol Additional InstructionsAnny Carney APRN - CNP - 06/25/2019 Patient will call our GI clinic at [phone] to make f/u appointment as soon as patient is discharged AttachmentsThe following attachments cannot be sent through Care Everywhere. Chest Pain ([place]i)Chest Pain: Musculoskeletal ([place]i)GERD ([place]) documented in this encounter History of Present Illness Lakesha Elmore, RN - 06/26/2019 11:57 AM ESTDischarge instructions given to and reviewed IN DETAIL with patient. Patient instructed to follow upwith her doctors as written on her discharge paperwork. Patient educated on times of all next medication doses due as well as s/s to call 911 and come back to ED. Patient verbalizes understanding of all discharge instructions, denies having any questions. IV discontinued per orders. Patient to be discharged with all belongings once she finds a ride. EEPBrea HawkinsGRACIEN - FRYER LINE HELPER - 06/26/2019 8:05 AM EST CDU Progress Note 06/26/2019 8:05 AM Subjective: Admit Date: 06/24/2019 PCP: Wood Vu MD Interval History: No overnight issues. Patient resting in bed. NAD. Currently denies chest pain, sob, epigastric/ abdominal pain, indigestion/ heartburn, nausea, vomiting, diarrhea, constipation, fevers, or chills. Diet NPO, After Midnight Patient Vitals for the past 96 hrs (Last 4 readings): Date/Time Temp Resp Pulse BP ABP (Arterial line BP) Patient Position FiO2 O2 Flow Rate (L/min) SpO2O2 Device Pain Level Weight BMI (Calculated) ? 06/26/19 0740 97.8 (36.6) 14 57 113/77 ? Semi fowlers ? ? 97 None (Room air) 0 ? ? ? 06/26/19 0321 98.1 (36.7) 16 52 112/71 ? 96 None (Room air) 0 ? ? ? 06/25/19 23:05:34 98.5 (36.9) 16 57 122/71 ? 95 None (Room air) ? 06/25/19 20:02:46 98.4 (36.9) 16 56 128/77 ? 95 None (Room air) 0 ? ? Weight 06/25/19 0121 151 lb 4.8 oz (68.6 kg) Medications: ? sodium chloride flush 10 mL Intravenous 2 times per day ? amLODIPine 2.5 mg Oral Daily ? [Held by provider] apixaban 5 mg Oral BID ? clopidogrel 75 mg Oral Daily ? rosuvastatin 40 mg Oral Nightly ? dofetilide 500 mcg Oral 2 times per day ? losartan 50 mg Oral Daily ? Magnesium Gluconate 500 mg Oral Daily ? traZODone 150 mg Oral Nightly ? Vitamin D 5,000 Units Oral Daily ? pantoprazole 40 mg Oral BID AC ? aspirin 162 mg Oral Once LABS: No results found for this or any previous visit (from the past 24 hour(s)). Urine Culture: Results for orders placed or performed during the hospital encounter of 02/25/19 Urine Culture Result Value Ref Range Urine Culture, Routine Normal urogenital deuce present. Objective: Vitals: BP 113/77 Pulse 57 Temp 97.8 ?F (36.6 ?C) (Temporal) Resp 14 Wt 151 lb 4.8 oz (68.6 kg) SpO2 97% BMI 24.42 kg/m? Pulse Ox: SpO2 Av.2 % Min: 93 % Max: 97 % Supplemental O2: BMI Classification: Normal Weight (BMI 18.5-24.9) PHYSICAL EXAM: General appearance: alert, appears stated age. NAD. Cooperative with exam. Skin: Skin color, texture, turgor normal. No rashes or lesions HEENT: Head: Normocephalic, no lesions, without obvious abnormality. Neck: no adenopathy, no carotid bruit, no JVD, supple, symmetrical, trachea midline and thyroid not enlarged, symmetric, no tenderness/mass/nodules Lungs: clear to auscultation bilaterally. No respiratory distress and or accessory muscle use. Chest Wall: No tenderness to palpation of anterior chest wall, sternum, and or bilateral arms/ anterior shoulders. Heart: 2/6 systolic murmur, regular rate and rhythm, S1, S2 normal, click, rub or gallop. gallop Abdomen: soft, non-tender; bowel sounds normal; no masses, no organomegaly. No rebound or guarding. No peritoneal signs. Negative Mcburney's. Negative Dyson's. Extremities: extremities normal, atraumatic, no cyanosis or edema. No extremity pain or calf tenderness. SILT. +2 PP Neurologic: Mental status: Alert, oriented, thought content appropriate. Clear speech. Psychiatric: Normal mood and affect. Assessment and Plan I reviewed: [x] laboratory results [x] radiographic results [x] nursing notes and vital signs reviewed At the time of today's encounter. Pt was advised of the results. Further orders to come as admission progresses. 1.Chest pain: troponin x3 negative, no ischemic EKG changes, will continue tele observation.?Recent stents and hx. Cardiology consulted and to re-evaluate patient this morning. Possible LHC. 2. Atrial fibrillation:?currently sinus rhythm.?Pt on tikosyn, plavix, and eliquis. 3.HTN: mildly elevated, will continue home medications and monitor. PRN hydralazine. 4.HPL: on statin.?lipid panel 02/2019: Total chol 184, LDL 107, TG 142, HDL 49.? 5. GERD: on PPI. GI was consulted. Patient was evaluated. PPI switched to BID by GI team, recommended outpatient EGD. Patient Active Problem List Diagnosis Code ? CAD (coronary artery disease) sp PCI 94, Stent , , I25.10 ? Hyperlipidemia E78.5 ? Hypertension I10 ? Atrial fibrillation, persistent I48.19 ? Presence of stent in coronary artery in patient with coronary artery disease I25.10, Z95.5 ? Chronic anticoagulation Z79.01 ? Chest pain R07.9 ? Bilateral leg weakness R29.898 ? Atherosclerosis of [place] coronary artery of [place] heart with angina pectoris (HCC) I25.119 ? PAF (paroxysmal atrial fibrillation) ([facility]) I48.0 ? Abnormal CXR R93.89 ? Supratherapeutic INR R79.1 ? Unstable angina ([facility]) I20.0 ? Therapeutic drug monitoring Z51.81 ? GERD (gastroesophageal reflux disease) K21.9 ? Chest pain, rule out acute myocardial infarction R07.9 Advance Directive: Full Code Discharge planning:Will consider home discharge, when patient is medically stable. LIAM KIMBALL Anny Triplett APRN - CNP - 06/25/2019 7:10 PM ESTDiscussed patient with GI. They will call Dr Sweet to discuss Patient diagnosis of GERD vs Cardiac e tiology. Awaiting decision concerning LHC. Patient would like to proceed. States she feels her pain is consistent with her angina. Will hold Eliquis due to possible heart cath. Patient NPO after midnight. Will discuss with cardiology in AM. Discussed with nursing as well for follow through. Patient isstable. Lakesha Rodriguez RN - 06/25/2019 1:31 PM ESTGI consult sent via perfect serve at this time Anny Jones, AIR TURNING MACHINE FEEDER - FRYER LINE HELPER - 06/25/2019 8:58 AM EST CDU Progress Note 06/25/2019 8:58 AM Subjective: Admit Date: 06/24/2019 PCP: Wood Vu MD Interval History: No overnight issues. Denies chest pain, sob, abdominal pain, nausea, vomiting, diarrhea, constipation, fevers, or chills. DIET CARDIAC; No Caffeine Patient Vitals for the past 96 hrs (Last 3 readings): Weight 06/25/19 0121 151 lb 4.8 oz (68.6 kg) Medications: ? sodium chloride flush 10 mL Intravenous 2 times per day ? amLODIPine 2.5 mg Oral Daily ? apixaban 5 mg Oral BID ? clopidogrel 75 mg Oral Daily ? rosuvastatin 40 mg Oral Nightly ? dofetilide 500 mcg Oral 2 times per day ? losartan 50 mg Oral Daily ? Magnesium Gluconate 500 mg Oral Daily ? pantoprazole 40 mg Oral QAM AC ? traZODone 150 mg Oral Nightly ? Vitamin D 5,000 Units Oral Daily ? aspirin 162 mg Oral Once LABS: Recent Results (from the past 24 hour(s)) Troponin Collection Time: 06/24/19 11:03 PM Result Value Ref Range Troponin I <0.012 0.000 - 0.034 ng/mL Lipase Collection Time: 06/24/19 11:03 PM Result Value Ref Range Lipase 197 23 - 300 U/L Magnesium Collection Time: 06/24/19 11:03 PM Result Value Ref Range Magnesium 2.0 1.6 - 2.3 mg/dL CBC Auto Differential Collection Time: 06/24/19 11:03 PM Result Value Ref Range WBC 6.6 3.6 - 10.7 10*3/uL RBC 3.97 3.80 - 5.20 10*6/uL Hemoglobin 12.7 11.7 - 16.0 g/dL Hematocrit 37.8 35.0 - 47.0 % MCV 95.2 79.0 - 98.0 fL MCH 32.0 26.0 - 34.0 pg MCHC 33.6 32.0 - 36.0 % RDW 13.3 11.5 - 14.5 % Platelets 214 140 - 440 10*3/uL MPV 7.9 7.4 - 10.4 fL Granulocytes % 53.0 40.0 - 80.0 % Lymphocyte % 36.6 20.0 - 40.0 % Monocytes 8.2 2.0 - 10.0 % Eosinophils 1.7 1.0 - 6.0 % Basophils 0.5 0.0 - 2.0 % Absolute Neut # 3.5 1.8 - 7.0 10*3/uL Absolute Lymph # 2.4 1.0 - 4.3 10*3/uL Absolute [place] # 0.5 0.0 - 0.8 10*3/uL Absolute Eos # 0.1 0.0 - 0.5 10*3/uL Absolute Baso # 0.0 0.0 - 0.2 10*3/uL Comprehensive Metabolic Panel Collection Time: 06/24/19 11:03 PM Result Value Ref Range Sodium 138 135 - 145 mmol/L Potassium 3.9 3.5 - 5.1 mmol/L Chloride 108 (H) 98 - 107 mmol/L CO2 24 22 - 30 mmol/L Anion Gap 7 NA Glucose 123 (H) 70 - 100 mg/dL BUN 16 7 - 20 mg/dL CREATININE 0.91 0.52 - 1.25 mg/dL eGFR >60.0 >60 mL/min EGFR IF NonAfrican [place] >60.0 >60 mL/min Calcium 10.6 (H) 8.4 - 10.4 mg/dL Albumin,Serum 4.3 3.5 - 5.0 g/dL Total Protein 7.4 6.3 - 8.2 g/dL Total Bilirubin 0.4 0.2 - 1.3 mg/dL Alkaline Phosphatase 67 38 - 126 U/L ALT 36 13 - 69 U/L AST 27 15 - 46 U/L Brain Natriuretic Peptide Collection Time: 06/24/19 11:03 PM Result Value Ref Range NT Pro-BNP 83 0 - 125 pg/mL Troponin Collection Time: 06/25/19 2:24 AM Result Value Ref Range Troponin I <0.012 0.000 - 0.034 ng/mL Troponin Collection Time: 06/25/19 5:41 AM Result Value Ref Range Troponin I <0.012 0.000 - 0.034 ng/mL Urine Culture: Results for orders placed or performed during the hospital encounter of 02/25/19 Urine Culture Result Value Ref Range Urine Culture, Routine Normal urogenital deuce present. Objective: Vitals: BP 104/65 Pulse 51 Temp 97.8 ?F (36.6 ?C) (Temporal) Resp 18 Wt 151 lb 4.8 oz (68.6 kg) SpO2 95% BMI 24.42 kg/m? Pulse Ox: SpO2 Av % Min: 95 % Max: 99 % Supplemental O2: General appearance: alert and cooperative with exam Lungs: clear to auscultation bilaterally Heart: regular rate and rhythm, S1, S2 normal, 2/6 systolic murmur, no click, rub or gallop Abdomen: soft, non-tender; bowel sounds normal; no masses, no organomegaly Extremities: extremities normal, atraumatic, no cyanosis or edema Neurologic: No obvious focal neurologic deficits. Psychiatric: Normal affect, denies any suicidal ideation or active depression. [id number] Score for Atrial Fibrillation Stroke Risk Risk Factors Component Value C CHF No 0 H HTN Yes 1 A2 Age >= 75 No, (73 y.o.) 0 D DM No 0 S2 Prior Stroke/TIA No 0 V Vascular Disease No 0 A Age 65-74 Yes, (73 y.o.) 1 Sc Sex female 1 [id number] Score 3 Score last updated 06/25/19 9:01 AM Click here for a link to the UpToDate guideline Atrial Fibrillation: Anticoagulation therapy to prevent embolization Disclaimer: Risk Score calculation is dependent on accuracy of patient problem list and past encounter diagnosis. Assessment and Plan 1.Chest pain: troponin x3 negative, no ischemic EKG changes, will continue tele observation and cycle troponins. Consult cardiology this AM due to recent stents and hx 2. Atrial fibrillation: currently sinus rhythm. Pt on tikosyn, plavix, and eliquis. 3.HTN: mildly elevated, will continue home medications and monitor. PRN hydralazine. 4.HPL: on statin. lipid panel 02/2019: Total chol 184, LDL 107, TG 142, HDL 49. 5. GERD: on PPI Past Medical History: Diagnosis Date ? Anxiety ? Atrial fibrillation, persistent CHADS2 = 1 (HTN) CHADSVASC = 4 (HTN, Age <75, Female, CAD) ? Bradycardia ? CAD (coronary artery disease) ? Coronary stent patent 2011 ? Depression ? History of echocardiogram Stress echo 01/23. Echo 12/24. ? History of Holter monitoring 02/24 ? History of nuclear stress test 03/28 ? Hyperlipidemia ? Hypertension ? MD (myocardial infarction) (HCC) 03/2016 ? Palpitations ? Typical atrial flutter (HCC) Advance Directive: Full Code Discharge planning: Home when medically stable Anny Carney CNP Lakesha Elmore RN - 06/25/2019 8:48 AM ESTNotified Anny Carney HAULING CONTRACTOR of patients BP. Patient reports that her BP is so low in the afternoonsthat she is unable to do anything. Okay to hold Norvasc and Losartan at this time. Also to hold Eliquis until cardiology sees patient. Lakesha Grace RN - 06/25/2019 7:36 AM ESTCardiology consult sent on [email or web address] at this time. Imani Saldivar RPH - 06/25/2019 2:00 AM EST Akua Kaden Sainz has been ordered Zetia. The [facility] Pharmacy &Therapeutics Committee has determined that this medication does not meet the criteria of an acute need medication in hospitalized patients. Therefore, the order for it has been discontinued per [facility] Policy #[id number].The medication remains on the Home Medication List for resumption at discharge unless specifically discontinued by the prescriber. If there is a need for acute treatment using this agent, please contact the pharmacy for further assistance. Imani Barrios RPh documented in this encounter Assessments Diagnosis Chest pain, rule out acute myocardial in farction - Primary Chest pain, unspecified Diagnosis Chest discomfort Other chest pain Diagnosis Abnormal electrocardiogram (ECG) (EKG) Persistent atrial fibrillation Atrial fibrillation Reason for Referral Status Reason Specialty Diagnoses / Procedures Referred By Hetal echeverria Referred To Contact Closed Cardiology Diagnoses Persistent atrial fibrillation Camden Samson, Procedures Holter Monitor [address] [address] Phone: Additional Source Comments FOR RECORDS PERTAINING TO PATIENTS WHO ARE OR HAVE BEEN ENROLLED IN A CHEMICAL DEPENDENCY/SUBSTANCE ABUSE PROGRAM, SOME INFORMATION MAY BE OMITTED. This clinical summary was aggregated from multiple sources. Caution should be exercised in using it in the provision of clinical care. This summary normalizes information from multiple sources, and as a consequence, information in this document may materially changethe coding, format and clinical context of patient data. In addition, data may be omittedin some cases. CLINICAL DECISIONS SHOULD BE BASED ON THE PRIMARY CLINICAL RECORDS. [facility] provides no warranty or guarantee of the accuracy or completeness of information in this document. UNRECOGNIZED CONTENT PROVIDED BELOW FOR UNRECOGNIZED SECTION INFORMATION SOURCE DATE CREATED AUTHOR AUTHOR'S ORGANIZATIO N 02/05/2018 [facility] DATE CREATED AUTHOR AUTHOR'S ORGANIZATIO N 06/17/2018 [facility] DATE CREATED AUTHOR AUTHOR'S ORGANIZATIO N 10/30/2019 [facility] UNRECOGNIZED CONTENT PROVIDED BELOW FOR UNRECOGNIZED SECTION Reason for Visit Reason Comments Chest Pain Pt developed chest pain arou nd 7pm. Pt took 3 NTG with relief. CP is 4/10. Pt states she has been dizzy and feels out of it since 5pm. Pt states she had rapid heart rate ramya or to chest pain.
== END ==
PROVIDERS: PCP Family Medicine Geriatric Medicine; Referring Provider Family Medicine Geriatric Medicine; Visit Provider Family Medicine Geriatric Medicine
DX: Z12.31 Encounter for screening mammogram for malignant neoplasm of breast (principal)
CPT/HCPCS: 77063; 77067

== ENCOUNTER → 2020-07-12 11:00 | Outpatient (CLI) | payer MEDICARE, SELFPAY ==
[2019-04-24 10:32] VITALS: BMI 24.7
--- NOTE | 2020-07-12 11:06 | US_ITS ---
STUDY: ULTRASOUND BREAST - LEFT REASON FOR EXAM: Female, 74 years old. Abnormal screening mammogram. TECHNIQUE: Axial and longitudinal images of the LEFT breast were performed with a high resolution ultrasound transducer. # OF IMAGES: 17 COMPARISON: Comparison is made with prior mammogram dated 06/25/2020 and prior sonogram of the left breast dated 12/20/2011. FINDINGS: LEFT Breast: There is a 1.4 cm x 0.5 cm x 0.9 cm slightly lobular hypoechoic inhomogeneous nodule at the 1 o''clock position of the breast at 3 cm from the nipple. This is unchanged. Tissue diagnosis is recommended. US/Breast Limited Unilateral IMPRESSION: 1.4 cm x 0.5 cm x 0.9 cm slightly lobular hypoechoic inhomogeneous density at the 1 o''clock position of the breast at 3 cm from the nipple. This is unchanged as compared to prior sonogram. A biopsy is recommended. ASSESSMENT CATEGORY: BIRADS Category 4: Suspicious - Biopsy Should Be Considered. A letter regarding these results will be sent to the patient by the facility within 30 days. Electronically Signed: Herbert Bautista, at 13:31 EST , Service support ,
== END ==
PROVIDERS: PCP Family Medicine Geriatric Medicine; Referring Provider Family Medicine Geriatric Medicine; Visit Provider Family Medicine Geriatric Medicine
DX: R92.8 Other abnormal and inconclusive findings on diagnostic imaging of breast (principal)
CPT/HCPCS: 76642